=== PATIENT | male | born 1945 | race Caucasian/White ===

== ENCOUNTER 2020-11-14 07:51 | Inpatient (IN) | payer MEDICARE, OTHER, SELFPAY ==
[2020-11-14] VITALS (41 sets, daily range): BP systolic 104–170; BP diastolic 61–97; PULSE 89–147; RESP 12–25; TEMP 36.1–37.1; O2SAT 92–100; BMI 37.0
--- NOTE | ~2020-11-14 | US_ITS ---
EXAMINATION: US venous doppler LE EXAM DATE: 11/14/2020 16:22 INDICATION: Bilateral lower extremity edema. TECHNIQUE: Multiple grayscale, color flow and Doppler images of the lower extremity deep venous syste ms bilaterally were obtained and reviewed. There is no prior study for comparison. FINDINGS: Right side: The right common femoral, femoral and profunda veins demonstrate normal color flow, respi ratory variation, augmentation and compressibility. Compressibility, color flow confirmed within the right popliteal, posterior tibial, peroneal, and greater saphenous veins. Left side: The left common femoral, femoral and profunda veins demonstrate normal color flow, respira tory variation, augmentation and compressibility. Compressibility, color flow confirmed within the l eft popliteal, posterior tibial, peroneal, and greater saphenous veins. IMPRESSION: 1. No lower extremity deep venous thrombosis bilaterally. Reviewed, dictated and finalized at location B. [facility]
--- NOTE | ~2020-11-14 | XR_ITS ---
EXAMINATION: XR chest 1V portable EXAM DATE: 11/14/2020 08:57 INDICATION: Shortness of breath. TECHNIQUE: Portable AP frontal chest x-ray was obtained. There is no prior study for comparison. FINDINGS: The lungs are clear. There are no pleural effusions. Cardiac silhouette is prominent but magnified on this AP technique. There is no pneumothorax suspected. The bones and soft tissues are unremarkable. IMPRESSION: No acute cardiopulmonary findings. Reviewed, dictated and finalized at location D. ADER
--- NOTE | 2020-11-14 08:03 | ECG_ITS ---
Measurements Intervals [place] Rate: 132 P: TX: 0 QRS: -14 QRSD: 81 T: 58 QT: 290 QTc: 430 Interpretive Statements ATRIAL FIBRILLATION WITH RAPID VENTRICULAR RESPONSE EARLY PRECORDIAL R/S TRANSITION ABNORMAL ECG Electronically Signed On 11-14-2020 8:17:11 [employer] [place] by Galen Ashby D.O.
[2020-11-14 08:41] LABS: Basophils Absolute Auto 0.1 K/mm3 (0.0-0.1); Basophils Percent Auto 0.7 % (0.2-1.2); Eosinophils Percent Auto 0.4 % (0-4.4); Hematocrit 34.3 % (42.0-52.0); Hemoglobin 11.2 g/dL (14.0-18.0); Immature Granulocyte Absolute 0.06 K/mm3 (0.00-0.031); Immature Granulocyte Percent A 0.7 % (0-0.5); Lymphocytes Percent Auto 23.6 % (18.3-44.2); Mean Corpuscular HGB Conc 32.7 g/dl (32-36); Mean Corpuscular Hemoglobin 30.4 pg (26-34); Mean Platelet Volume 9.8 fl (7.4-10.4); Monocytes Absolute Auto 0.5 K/mm3 (0.1-0.6); Monocytes Percent Auto 5.7 % (2.6-8.5); Neutrophils Absolute Auto 6.1 K/mm3 (1.3-6.7); Neutrophils Percent Auto 68.9 % (45.5-73.1); Platelet Count Result 213 k/mm3 (150-375); Red Blood Count 3.69 M/mm3 (4.6-6.20); Red Cell Distribution Width 12.8 % (11.5-14.5); White Blood Count 8.9 K/mm3 (4.5-10.0)
--- NOTE | 2020-11-14 08:46 | ED.GIBLEED ---
HPI - GI Bleed General Chief complaint: GI Bleed Stated complaint: black tarry stools Time Seen by Provider: 11/14/20 07:56 Source: patient Mode of arrival: ambulatory Limitations: no limitations History of Present Illness HPI Narrative: This is a 75 year old male with history of HTN, hyperlipidemia who presents for evaluation of a GI bleeding. He states he has been having black tarry stools since last night. His last stool was 1 hour ago. He also states he noticed bright red blood in the toilet as well. He denies abdominal pain, nausea, vomiting, dizziness, chest pain or sob. He was noted to be tachycardic in triage. HE denies history of afib or an arrhythmia. He denies palpitations, orthopnea. He states he takes aspirin daily due to family history of heart disease. He has been taking naproxen daily for a few weeks as well. He has chronic bilateral leg swelling but he states it has not worsened. His doctors are located at the [place]. Related Data Home Medications Medication Instructions Recorded Confirmed aspirin 81 mg PO DAILY 11/14/20 atenolol 25 mg PO DAILY 11/14/20 cyanocobalamin (vitamin B-12) 1,000 mcg PO DAILY 11/14/20 folic acid 0.8 mg PO DAILY 11/14/20 levothyroxine [Synthroid] 150 mcg PO DAILY 11/14/20 simvastatin 40 mg PO DAILY 11/14/20 Allergies Allergy/AdvReac Type Severity Reaction Status Date / Time No Known Allergies Allergy Verified 11/14/20 18:16 Review of Systems Review of Systems: All systems reviewed & are unremarkable except as noted in HPI and below Constitutional: Constitutional: Denies chills and Denies fever(s) Cardiovascular: Cardiovascular: Denies chest pain and Denies rapid heart rate Respiratory: Respiratory: Denies cough and Denies dyspnea Gastrointestinal: Gastrointestinal: Denies abdominal pain, Denies nausea and Denies vomiting PMFSH Past Medical History Medical History (Updated 11/14/20 @ 18:21 by Chelo Lovell MD) Acute blood loss anemia GI bleeding Hypertension Hypothyroid NSAID long-term use TBI (traumatic brain injury) Residual left-sided weakness. Surgical History Surgical History (Updated 11/14/20 @ 15:52 by Rebeka Curiel NP) H/O colonoscopy with polypectomy History of appendectomy History of tonsillectomy and adenoidectomy Family History Family History (Updated 11/14/20 @ 15:54 by Rebeka Curiel NP) Father Heart disease Mother Diabetes mellitus Social History Social History (Updated 11/14/20 @ 15:58 by Rebeka Curiel NP) Social History: The patient lives home alone. He is and has no children. He desires to have his sister is a durable power netting inspector. He lives approximately 6 miles from her house. 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 the patient desires to be a full code. Smoking status: Former smoker Smoking end date: 11/08/02 Alcohol intake: current Drinks per week: 3 Substance use: never Gender identity (if verbalized by the patient): Male Sexual Orientation (if Verbalized by the Patient): Straight or Heterosexual Spiritual care concerns: No Exam Const: General: no acute distress and alert Orientation/consciousness: patient oriented x3 Resp: Effort & Inspection: normal respiratory effort and no retractions Auscultation: wheezes expiratory wheezes Cardio: Rate: tachycardic Rhythm: abnormal rhythm Heart sounds: no murmurs GI: GI Palp: Yes Soft to palpation, No Tenderness to palpation present (GI) and No Guarding due to palpation present (GI) Auscultation: normal bowel sounds Rectal Exam: Abnormal stool present maroon stool and heme positive stool Skin: General skin exam: normal color Rashes: no rashes Neuro: General: patient oriented x3, moves all extremities and CN's II-XI intact bilaterally Course Consultations Consultation #1: I Discussed case with Dr. Bardales who agrees to consult on patient. Date: 11/14/20 Time: 11:2
[2020-11-14 08:51] LABS: INR 1.1; Prothrombin Time 14.6 Seconds (11.1-14.7)
[2020-11-14 08:52] LABS: Partial Thromboplastin Time 26.5 SECONDS (22.3-36.8)
[2020-11-14 08:54] LABS: Alanine Aminotransferase 18 U/L (4-50); Albumin Level 3.5 g/dL (3.5-5.1); Alkaline Phosphatase 49 U/L (38-126); Anion Gap 7 mmol/L (8-16); Aspartate Amino Transferase 20 U/L (17-59); Bilirubin,Total 0.9 mg/dL (0.2-1.3); Blood Urea Nitrogen 35 mg/dL (9-20); Calcium 8.4 mg/dL (8.4-10.2); Carbon Dioxide 25 mmol/L (22-30); Chloride 104 mmol/L (98-107); Estimated CRCL calculation 68 ml/min; Estimated Glomerular Filt Rate > 60; Glucose 129 mg/dL (75-110); Magnesium 1.6 mg/dL (1.6-2.3); Potassium 4.9 mmol/L (3.4-5.0); Sodium 136 mmol/L (137-145)
[2020-11-14] MEDS: SODIUM CHLORIDE 0.9% IV 500 ML 999 ML IV CONT (09:07)
[2020-11-14] MEDS: PANTOPRAZOLE SODIUM IV 40 MG VIAL 80 MG IV PUSH (09:08)
[2020-11-14] MEDS: dilTIAZem HCl INJ 25 MG/5 ML VIAL 10 MG IV PUSH (11:33)
[2020-11-14] MEDS: LACTATED RINGERS 1,000 ML 150 ML IV CONT (13:42)
--- NOTE | 2020-11-14 14:20 | WPDANESEPPF ---
Anes - Initial Pre Proc Eval Procedure: Operation Date: 11/14/20 15:45 Proposed Procedures p Esophagogastroduodenoscopy - Alexei Iqbal MD Date/Time: 11/14/20 14:20 Surgeon: Madonna Duque MD Pre Op Diagnosis: black tarry stools Patient Data Age: 75 Gender: M Height: 5 ft 10 in Weight: 117 kg Last Vital Signs Temp 98.8 F 11/14/20 13:45 Pulse 92 11/14/20 13:45 Resp 22 H 11/14/20 13:45 BP 140/93 H 11/14/20 13:45 Pulse Ox 98 11/14/20 13:45 Allergies Allergy/AdvReac Type Severity Reaction Status Date / Time No Known Allergies Allergy Verified 11/14/20 13:43 Home Medications Medication Instructions Recorded Confirmed Type aspirin 81 mg PO DAILY 11/14/20 History atenolol 25 mg PO DAILY 11/14/20 History cyanocobalamin (vitamin B-12) 1,000 mcg PO DAILY 11/14/20 History folic acid 0.8 mg PO DAILY 11/14/20 History levothyroxine [Synthroid] 150 mcg PO DAILY 11/14/20 History simvastatin 40 mg PO DAILY 11/14/20 History Laboratory Tests 11/14/20 11/14/20 11/14/20 08:30 08:30 08:30 WBC 8.9 K/mm3 K/mm3 (4.5-10.0) RBC 3.69 M/mm3 L M/mm3 (4.6-6.20) Hgb 11.2 g/dL L g/dL (14.0-18.0) Hct 34.3 % L % (42.0-52.0) MCV 93.0 fl fl (80-100) MCH 30.4 pg pg (26-34) MCHC 32.7 g/dl g/dl (32-36) RDW 12.8 % % (11.5-14.5) Plt Count 213 k/mm3 k/mm3 (150-375) MPV 9.8 fl fl (7.4-10.4) Immature Gran % (Auto) 0.7 % H % (0-0.5) Neut % (Auto) 68.9 % % (45.5-73.1) Lymph % (Auto) 23.6 % % (18.3-44.2) Sevier % (Auto) 5.7 % % (2.6-8.5) Eos % (Auto) 0.4 % % (0-4.4) Baso % (Auto) 0.7 % % (0.2-1.2) Lymph # (Auto) 2.10 K/mm3 K/mm3 (0.9-3.2) [place] # (Auto) 0.5 K/mm3 K/mm3 (0.1-0.6) Eos # (Auto) 0.0 K/mm3 K/mm3 (0-0.3) Baso # (Auto) 0.1 K/mm3 K/mm3 (0.0-0.1) Abs Immat Gran (auto) 0.06 K/mm3 H K/mm3 (0.00-0.031) Absolute Neuts (auto) 6.1 K/mm3 K/mm3 (1.3-6.7) Absolute Nucleated RBC 0.0 K/mm3 K/mm3 (0.0-0.012) Nucleated RBC % 0.0 % % (0.0-0.2) PT 14.6 Seconds Seconds (11.1-14.7) INR 1.1 APTT 26.5 SECONDS SECONDS (22.3-36.8) Sodium 136 mmol/L L mmol/L (137-145) Potassium 4.9 mmol/L mmol/L (3.4-5.0) Chloride 104 mmol/L mmol/L (98-107) Carbon Dioxide 25 mmol/L mmol/L (22-30) Anion Gap 7 mmol/L L mmol/L (8-16) BUN 35 mg/dL H mg/dL (9-20) Creatinine 1.10 mg/dL mg/dL (0.7-1.3) Estim Creat Clear Calc 68 ml/min ml/min Estimated GFR > 60 (59 - ) Glucose 129 mg/dL H mg/dL (75-110) Calcium 8.4 mg/dL mg/dL (8.4-10.2) Magnesium 1.6 mg/dL mg/dL (1.6-2.3) Total Bilirubin 0.9 mg/dL mg/dL (0.2-1.3) AST 20 U/L U/L (17-59) ALT 18 U/L U/L (4-50) Alkaline Phosphatase 49 U/L U/L (38-126) Total Protein 6.0 g/dL L g/dL (6.3-8.2) Albumin 3.5 g/dL g/dL (3.5-5.1) Blood Type Antibody Screen 11/14/20 08:30 WBC RBC Hgb Hct MCV MCH MCHC RDW Plt Count MPV Immature Gran % (Auto) Neut % (Auto) Lymph % (Auto) Sevier % (Auto) Eos % (Auto) Baso % (Auto) Lymph # (Auto) Sevier # (Auto) Eos # (Auto) Baso # (Auto) Abs Immat Gran (auto) Absolute Neuts (auto) Absolute Nucleated RBC Nucleated RBC % PT INR APTT Sodium Potassium Chloride Carbon Dioxide Anion Gap BUN Creatinine Estim Creat Clear Calc Estimated GFR Glucose Calcium Magnesium Total
--- NOTE | 2020-11-14 15:08 | WPDGICN ---
Assessment and Plan Assessment and plan (1) GI bleeding: Code(s): K92.2 - Gastrointestinal hemorrhage, unspecified Status: Acute Assessment and Plan: started on iv protonix, will proceed with urgent EGD more recommendations after scope (2) Acute blood loss anemia: Code(s): D62 - Acute posthemorrhagic anemia Status: Acute Assessment and Plan: npo now, trend hb and transfuse if below 7 avoid blood thinners and discontinue nsaid's (3) NSAID long-term use: Code(s): Z79.1 - parts counterman (current) use of non-steroidal anti-inflammatories (NSAID) Status: Acute (4) Atrial fibrillation with RVR: Code(s): I48.91 - Unspecified atrial fibrillation Status: Acute Assessment and Plan: new diagnosis, on cardizem drip he is been admitted to hospital, management by hospitalist team (5) Hypertension: Code(s): I10 - Essential (primary) hypertension Status: Chronic GI Consult Note Consult date/time: 11/14/20 15:08 Reason for consult: melena, GIB HPI: Cj Galaviz is a 75 year old male with history of HTN, hyperlipidemia and also using naproxen daily for few weeks (pain in nose after using glasses) here with new onset of melena that started last night, early today again had large dark stool with red blood. He denies abdominal pain, nausea, vomiting, dizziness, chest pain or sob. He uses aspirin. No history of bleeding, no alcohol abuse, no cirrhosis. His doctors located at [place]. Denies history of arrhythmia. In the ER noted to be on Afib with RVR, started on cardizem drip. Hb 11.2, bun 35, platelets/inr and liver enzymes normal. Last colonoscopy about 2 years ago with polyps Review of Systems Constitutional: Constitutional: Denies lethargy Eyes: Eyes: Reports no additional eye complaints ENT: Reports system reviewed and no additional complaints, except as documented Cardiovascular: Cardiovascular: Reports palpitations Respiratory: Respiratory: Denies cough Gastrointestinal: Gastrointestinal: Denies abdominal pain and Reports melena Genitourinary: Genitourinary: Denies dysuria Musculoskeletal: Musculoskeletal: Denies neck pain Integumentary/Breasts: Skin/Breast: Denies dry skin Neurologic: Denies headache(s) Psychiatric: Psychiatric: Reports no additional psychiatric complaints PMFSH Past Medical History Medical History (Updated 11/14/20 @ 16:01 by Alexei Iqbal MD) Acute blood loss anemia GI bleeding Hypertension Hypothyroid NSAID long-term use TBI (traumatic brain injury) Residual left-sided weakness. Surgical History Surgical History (Updated 11/14/20 @ 15:52 by Rebeka Curiel NP) H/O colonoscopy with polypectomy History of appendectomy History of tonsillectomy and adenoidectomy Family History Family History (Updated 11/14/20 @ 15:54 by Rebeka Curiel NP) Father Heart disease Mother Diabetes mellitus Social History Social History (Updated 11/14/20 @ 08:49 by Chelo Lovell MD) Social History: The patient lives home alone. He is and has no children. He desires to have his sister is a durable power defense attorney. He lives approximately 6 miles from her house. 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 the patient desires to be a full code. Smoking status: Former smoker Meds Home Medications and Allergies Home Medications Medication Instructions Recorded Confirmed Type aspirin 81 mg PO DAILY 11/14/20 History atenolol 25 mg PO DAILY 11/14/20 History cyanocobalamin (vitamin B-12) 1,000 mcg PO DAILY 11/14/20 History folic acid 0.8 mg PO DAILY 11/14/20 History levothyroxine [Synthroid] 150 mcg PO DAILY 11/14/20 History simvastatin 40 mg PO DAILY 11/14/20 History Allergies Allergy/AdvReac Type Severity Reaction Status Date / Time No Known Allergies Allergy Verified 11/14/20 13:43 Vital Signs Vital Signs - 24 hr 11/14/20 08:00 03
--- NOTE | 2020-11-14 15:45 | PM.IMHP ---
H&P: HPI History of Present Illness Date/Time: 11/14/20 15:45 who is a 75-year-old male patient who takes a daily aspirin. He has no prior history of having atrial fibrillation. In AFib with RVR in the emergency room. Cardiology had been consulted. The patient was started on a Cardizem drip. The patient came here today because he noticed that he had dark tarry stools last night and again early this morning he had a large dark stool with some red blood in it. The patient has been taking naproxen daily for few weeks as well. He has chronic bilateral lower leg swelling but states that it is of about the same. [facility]. H&H 11.2 and 34.3. Sodium 136. IV fluids, and Cardizem drip. He is being admitted to IMU inpatient status on the date of service of 11/14/2020. Chief Complaint: GI bleed Review of Systems Review of Systems: All systems reviewed & are unremarkable except as noted in HPI and below Constitutional: Constitutional: Reports as per HPI and Reports no additional constitutional complaints Eyes: Eyes: Reports as per HPI and Reports no additional eye complaints ENT: Reports system reviewed and no additional complaints, except as documented and Reports Normal hearing present Cardiovascular: Cardiovascular: Reports no additional cardiovascular complaints Respiratory: Respiratory: Reports no additional respiratory complaints and Reports no additional respiratory complaints Gastrointestinal: Gastrointestinal: Reports as per HPI and Reports no additional gastrointestinal complaints Musculoskeletal: Musculoskeletal: Reports no additional musculoskeletal complaints Integumentary/Breasts: Skin/Breast: Reports system reviewed and no additional complaints, except as docu and Reports as per HPI Neurologic: Reports system reviewed and no additional complaints, except as documented, Reports as per HPI and Reports Normal hearing present Psychiatric: Psychiatric: Reports no additional psychiatric complaints and Reports as per HPI Endocrine: Endocrine: Reports no additional endocrine complaints Hematologic/Lymphatic: Hematologic/Lymphatic: Reports no additional hematologic/lymphatic complaints Allergic/Immunologic: Allergic/Immunologic: Reports no additional allergic/immunologic complaints [facility] Past Medical History Medical History (Updated 11/14/20 @ 16:01 by Alexei Iqbal MD) Acute blood loss anemia GI bleeding Hypertension Hypothyroid NSAID long-term use TBI (traumatic brain injury) Residual left-sided weakness. Surgical History Surgical History (Updated 11/14/20 @ 15:52 by Rebeka Curiel NP) H/O colonoscopy with polypectomy History of appendectomy History of tonsillectomy and adenoidectomy Family History Family History (Updated 11/14/20 @ 15:54 by Rebeka Curiel NP) Father Heart disease Mother Diabetes mellitus Social History Social History (Updated 11/14/20 @ 15:58 by Rebeka Curiel NP) Social History: The patient lives home alone. He is and has no children. He desires to have his sister is a durable power personal injury attorney. He lives approximately 6 miles from her house. 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 the patient desires to be a full code. Smoking status: Former smoker Meds Home Medications and Allergies Home Medications Medication Instructions Recorded Confirmed Type aspirin 81 mg PO DAILY 11/14/20 History atenolol 25 mg PO DAILY 11/14/20 History cyanocobalamin (vitamin B-12) 1,000 mcg PO DAILY 11/14/20 History folic acid 0.8 mg PO DAILY 11/14/20 History levothyroxine [Synthroid] 150 mcg PO DAILY 11/14/20 History simvastatin 40 mg PO DAILY 11/14/20 History Allergies Allergy/AdvReac Type Severity Reaction Status Date / Time No Known Allergies Allergy Verified 11/14/20 13:43 Vital Signs Vital Signs - 24 hr 11/14/20 08:00 11/14/20 08:09 11/14/20 08:15
--- NOTE | 2020-11-14 18:04 | ADMGEN ---
This patient, Cj Galaviz, was admitted to IMU Room 205-01. Patient/family oriented to hospital policies and general routines including ID bracelet, bed and alarms, visiting hours, pain management, procedures, bathroom and other care routines, personal items, smoking policy, room service/diet, and visiting hours. Information on how to activate the Rapid Response Team has been discussed. Patient/Family are encouraged to report perceived risks to care and to ask questions if they do not understand what they are told or what they should do.
[2020-11-14 18:26] LABS: Hematocrit 32.9 % (42.0-52.0); Hemoglobin 10.8 g/dL (14.0-18.0)
[2020-11-14] MEDS: LACTATED RINGERS 1,000 ML 125 ML IV CONT (18:54)
[2020-11-15] VITALS (18 sets, daily range): BP systolic 111–134; BP diastolic 68–85; PULSE 63–95; RESP 15–21; TEMP 35.8–36.6; O2SAT 92–100
--- NOTE | 2020-11-15 02:49 | PC.NURSE ---
This patient, Cj Galaviz, was transferred to [ICU room 6 as an IMU overflow pt ] on 11/15/20 at 0250. Personal belongings sent with patient. Report given to [ ERAN Colindres]. Appropriate documentation sent with patient.
[2020-11-15] MEDS: LACTATED RINGERS 1,000 ML 125 ML IV CONT (03:13)
--- NOTE | 2020-11-15 03:33 | PC.NURSE ---
This patient, Cj Galaviz, was transferred to [ ICU 6] on 11/15/20 at 0250. Personal belongings sent with patient. Report received from Ambika Reina RN. Appropriate documentation sent with patient.
[2020-11-15 03:35] LABS: Basophils Absolute Auto 0.1 K/mm3 (0.0-0.1); Basophils Percent Auto 0.6 % (0.2-1.2); Eosinophils Absolute Auto 0.1 K/mm3 (0-0.3); Hematocrit 29.5 % (42.0-52.0); Hemoglobin 9.6 g/dL (14.0-18.0); Immature Granulocyte Absolute 0.04 K/mm3 (0.00-0.031); Immature Granulocyte Percent A 0.5 % (0-0.5); Lymphocytes Absolute Auto 3.22 K/mm3 (0.9-3.2); Lymphocytes Percent Auto 39.4 % (18.3-44.2); Mean Corpuscular HGB Conc 32.5 g/dl (32-36); Mean Corpuscular Hemoglobin 29.7 pg (26-34); Mean Corpuscular Volume 91.3 fl (80-100); Mean Platelet Volume 9.7 fl (7.4-10.4); Monocytes Absolute Auto 0.5 K/mm3 (0.1-0.6); Monocytes Percent Auto 5.6 % (2.6-8.5); Neutrophils Absolute Auto 4.3 K/mm3 (1.3-6.7); Neutrophils Percent Auto 52.9 % (45.5-73.1); Platelet Count Result 194 k/mm3 (150-375); Red Blood Count 3.23 M/mm3 (4.6-6.20); White Blood Count 8.2 K/mm3 (4.5-10.0)
[2020-11-15 03:53] LABS: Alanine Aminotransferase 15 U/L (4-50); Albumin Level 3.3 g/dL (3.5-5.1); Alkaline Phosphatase 36 U/L (38-126); Anion Gap 2 mmol/L (8-16); Aspartate Amino Transferase 21 U/L (17-59); Blood Urea Nitrogen 26 mg/dL (9-20); Calcium 8.3 mg/dL (8.4-10.2); Carbon Dioxide 27 mmol/L (22-30); Chloride 104 mmol/L (98-107); Estimated CRCL calculation 75 ml/min; Estimated Glomerular Filt Rate > 60; Glucose 104 mg/dL (75-110); Sodium 133 mmol/L (137-145)
--- NOTE | 2020-11-15 06:00 | ECHO_ITS ---
Patient Info Name: Cj Galaviz Age: 75 years : 1945 Gender: Male Ht: 70 in Wt: 257 lbs BSA: 2.44 m2 HR: 76 bpm BP: 134 / 70 mmHg Heart Rhythm: Atrial Fibrillation Technical Quality: Fair Exam Date: 11/15/2020 9:33 AM Exam Location: [facility] Pulmonary Exam Room: ICU 06 Patient Status: Inpatient Admit Date: 11/14/2020 Staff Ordering Physician: Chelo Lovell MD Narrative Writer: Amanda Canales RDCS Attending Provider: Douglas Swartz MD Referring Physician: Liliya COREY; Exam Type: CA echo doppler color flow Study Info Indications - [employer] Complete two-dimensional, color flow and Doppler transthoracic echocardiogram is performed. Summary 1. Complete two-dimensional, color flow and Doppler transthoracic echocardiogram is performed. 2. Left ventricular systolic function is normal, estimated at 65-70%. 3. There is mildly increased left ventricular wall thickness. 4. Left atrial chamber dimension is moderately enlarged. 5. Right atrial chamber dimension is moderately enlarged. 6. There is moderate to severe mitral valve regurgitation. 7. There is mild to moderate tricuspid valve regurgitation. 8. No pulmonary hypertension, estimated pulmonary arterial systolic pressure is 34 mmHg. 9. There is trivial pericardial effusion. Left Ventricle Left ventricular chamber dimension is normal. Left ventricular systolic function is normal, estimated at 65-70%. There is mildly increased left ventricular wall thickness. The left ventricular diastolic function is indeterminate. Right Ventricle Right ventricular chamber dimension is normal. Right ventricular systolic function is normal. Left Atria Left atrial chamber dimension is moderately enlarged. Right Atria Right atrial chamber dimension is moderately enlarged. Aortic Valve The aortic valve is not well visualized. There is no aortic valve stenosis. There is no aortic valve regurgitation. There is mild aortic valve calcification. Pulmonic Valve The pulmonic valve is not well visualized. Mitral Valve The mitral valve has normal leaflets. There is moderate to severe mitral valve regurgitation. The mitral valve annulus is mildly calcified. Tricuspid Valve The tricuspid valve leaflets are normal. There is mild to moderate tricuspid valve regurgitation. No pulmonary hypertension, estimated pulmonary arterial systolic pressure is 34 mmHg. Pericardium/Pleural The pericardium appears normal. There is trivial pericardial effusion. Inferior Vena Cava Normal inferior vena cava with >50% collapse upon inspiration consistent with normal right atrial pressure, 5 mmHg. Aorta The aortic root size at the sinus of Valsalva is normal. There is mild aortic atherosclerosis. Left Ventricular Outflow Tract Name Value Normal LVOT 2D LVOT Diameter 2.1 cm LVOT Doppler LVOT Peak Gradient 4 mmHg LVOT Mean Gradient 3 mmHg LVOT VTI 21 cm LVOT VTI/AV VTI Ratio 0.8 LVOT Stroke Volume
[2020-11-15 07:19] LABS: Hemoglobin 9.3 g/dL (14.0-18.0)
--- NOTE | 2020-11-15 09:55 | PM.CNCAR ---
Assessment and Plan Assessment and plan (1) Atrial fibrillation with RVR: Code(s): I48.91 - Unspecified atrial fibrillation Status: Acute Assessment and Plan: Rate controlled on diltiazem. Transition to oral rate control. Cardioversion and antiarrhythmic therapy should be avoided as duration of atrial fibrillation of unknown, patient asymptomatic. Unable to utilize antiplatelet and or systemic anticoagulation due to acute GI bleed. Embolic stroke risk discussed with patient versus bleeding risk on anticoagulation. Plan to initiate anticoagulation as an outpatient when able from GI perspective. -2D echocardiogram. Further comment after further review -AFib is secondary to risk factors including hypertension, age as well as exacerbated by acute physiologic stressor with GI bleed and blood loss anemia. Infusion to 5 milligrams/hour, give oral metoprolol b.i.d. 1st dose 50 mg now. Discontinue diltiazem drip 30 minutes after oral metoprolol administered. (2) Acute blood loss anemia: Code(s): D62 - Acute posthemorrhagic anemia Status: Acute Assessment and Plan: Secondary to bleeding ulcer. He had ablation performed. Follow H&H. Appreciate GI involvement. (3) GI bleeding: Code(s): K92.2 - Gastrointestinal hemorrhage, unspecified Status: Acute Assessment and Plan: As above. GI following. (4) Hypertension: Code(s): I10 - Essential (primary) hypertension Status: Chronic Assessment and Plan: Stable, no acute issues. (5) Hypothyroid: Code(s): E03.9 - Hypothyroidism, unspecified Status: Chronic Assessment and Plan: Per primary service. Levothyroxine. Check TSH. History of Present Illness History of Present Illness Consult date/time: Date of service: 11/15/20 09:55 Cardiology consultation at the request of Rebeka Curiel of [facility] service for our opinion regarding atrial fibrillation management in setting of acute GI bleed. Requesting physician: Rebeka Curiel NP Consult reason: atrial fibrillation Reason For Visit: black tarry stools Narrative: Patient is a pleasant 75-year-old male with a history of hypertension, hypothyroidism, history of traumatic brain injury who presented with complaints of black dark tarry stools on daily NSAID therapy for the past month in addition to aspirin 81 mg daily. In the emergency department he was noted to be in atrial fibrillation with rapid ventricular response for which a Cardizem infusion was initiated. Heart rate better controlled. Patient was evaluated by Gastroenterology for which endoscopy was performed revealing multiple benign ulcers in the antrum largest of which had an adherent clot ablated with a heater probe and clipped due to active bleeding. Multiple biopsies were taken. Small hiatal hernia was also noted. At presentation Hemoglobin 11.2 declined to 9.3 this morning. Patient denies any prior history of atrial fibrillation, palpitations, chest pain or dizziness. He denies recent falls. He may have noted a little shortness of breath just prior to admission with walking longer distances. No history of stroke, DVT/PE, CAD, CHF. He admits he snores but has no documented history of sleep apnea. Review of Systems Review of Systems: All systems reviewed & are unremarkable except as noted in HPI and below Constitutional: Constitutional: Reports as per HPI, Reports no additional constitutional complaints, Reports fatigue and Denies weakness Eyes: Eyes: Reports as per HPI and Reports no additional eye complaints ENT: Reports system reviewed and no additional complaints, except as documented and Reports as per HPI Cardiovascular: Cardiovascular: Reports as per HPI, Reports no additional cardiovascular complaints, Denies chest pain, Denies diaphoresis, Reports leg edema, Denies lightheadedness and Denies palpitations Respiratory: Respiratory: Reports as per HPI, Reports no addition
[2020-11-15] MEDS: METOPROLOL TARTRATE 50 MG TAB PO ×2 (10:28→20:16)
--- NOTE | 2020-11-15 11:35 | WPDANESPN ---
Anes - Prog Note Post-Op Date/Time: 11/15/20 11:35 Cardiovascular status: normal Respiratory status: normal Airway patency: baseline Mental status: baseline Post-Op hydration status: normal Vital Signs: Last Vital Signs Temp 35.8 C L 11/15/20 08:00 Pulse 68 11/15/20 10:27 Resp 21 H 11/15/20 08:00 BP 129/79 11/15/20 08:00 Pulse Ox 97 11/15/20 08:00 Pain Score (VAS): no complaints I/O: Intake & Output 11/14/20 11/15/20 11/15/20 23:59 07:59 15:59 Intake Total 500 1650 656 Output Total 460 300 Balance 40 1350 656 Laboratory Tests 11/15/20 07:04 11/15/20 02:55 11/14/20 11/15/20 11/15/20 18:16 02:55 02:55 WBC 8.2 RBC 3.23 L Hgb 10.8 L 9.6 L Hct 32.9 L 29.5 L MCV 91.3 MCH 29.7 MCHC 32.5 RDW 13.0 Plt Count 194 MPV 9.7 Immature Gran % (Auto) 0.5 Neut % (Auto) 52.9 Lymph % (Auto) 39.4 Pitt % (Auto) 5.6 Eos % (Auto) 1.0 Baso % (Auto) 0.6 Lymph # (Auto) 3.22 H Pitt # (Auto) 0.5 Eos # (Auto) 0.1 Baso # (Auto) 0.1 Abs Immat Gran (auto) 0.04 H Absolute Neuts (auto) 4.3 Absolute Nucleated RBC 0.0 Nucleated RBC % 0.0 Sodium 133 L Potassium 4.0 Chloride 104 Carbon Dioxide 27 Anion Gap 2 L BUN 26 H Creatinine 1.00 Estim Creat Clear Calc 75 Estimated GFR > 60 Glucose 104 Calcium 8.3 L Total Bilirubin 1.0 AST 21 ALT 15 Alkaline Phosphatase 36 L Total Protein 6.0 L Albumin 3.3 L TSH (Reflex) Free T4 11/15/20 11/15/20 11/15/20 07:02 07:02 07:04 WBC RBC Hgb 9.3 L Hct 29.0 L MCV MCH MCHC RDW Plt Count MPV Immature Gran % (Auto) Neut % (Auto) Lymph % (Auto) Pitt % (Auto) Eos % (Auto) Baso % (Auto) Lymph # (Auto) Pitt # (Auto) Eos # (Auto) Baso # (Auto) Abs Immat Gran (auto) Absolute Neuts (auto) Absolute Nucleated RBC Nucleated RBC % Sodium Potassium Chloride Carbon Dioxide Anion Gap BUN Creatinine Estim Creat Clear Calc Estimated GFR Glucose Calcium Total Bilirubin AST ALT Alkaline Phosphatase Total Protein Albumin TSH (Reflex) 5.980 H Free T4 Pending Post-procedural complaints: none Patient Feedback: Patient satisfied with anesthetic care.
--- NOTE | 2020-11-15 11:50 | WPDGIPROGNO ---
Progress Note: A&P Assessment and Plan (1) Gastric ulcer: Code(s): K25.9 - Gastric ulcer, unspecified as acute or chronic, without hemorrhage or perforation Status: Acute Assessment and Plan: found several gastric ulcers with a large one with clot, treated with gold probe and one clip, no bleeding ok to switch to protonix 40mg bid after completing drip today ok to advance diet continue to monitor for obvious sign of bleeding probably from nsaid's use (pending bx)- he should not take anymore no anticoagulation for now, maybe in 1 week if medically indicated given arrhythmia repeat egd in 3 months to assess for healing (2) GI bleeding: Code(s): K92.2 - Gastrointestinal hemorrhage, unspecified Status: Acute Assessment and Plan: seems that resolved but trend hb (3) Acute blood loss anemia: Code(s): D62 - Acute posthemorrhagic anemia Status: Acute Assessment and Plan: continue to monitor (4) Atrial fibrillation with RVR: Code(s): I48.91 - Unspecified atrial fibrillation Status: Acute Assessment and Plan: rate controlled now, cardiology on board (5) NSAID long-term use: Code(s): Z79.1 - senior living (current) use of non-steroidal anti-inflammatories (NSAID) Status: Acute Assessment and Plan: he understood that can not take anymore (6) Hypertension: Code(s): I10 - Essential (primary) hypertension Status: Chronic Subjective Date/time seen: 11/15/20 11:50 Interval history: had dark stool earlier but overall better, still on cardizem gtt and also protonix iv drip, he is comfortable, in ICU Review of Systems Review of Systems: All systems reviewed & are unremarkable except as noted in HPI and below Exam Const: General: comfortable and no acute distress HENMT: General nose exam: Normal nares present Eyes: General: appearance normal, both eyes and all related structures Neck: Neck: supple Resp: Effort & Inspection: normal respiratory effort Auscultation: clear to auscultation bilaterally Cardio: Rhythm: abnormal rhythm irregularly irregular GI: Inspection: non-distended GI Palp: Yes Soft to palpation and No Tenderness to palpation present (GI) Auscultation: normal bowel sounds Skin: General skin exam: normal color Neuro: Speech: normal speech Motor exam (neuro): Normal motor muscle tone present throughout Extrem: General: normal to inspection Objective Data Vital Signs Vital Signs: Vital Signs - 24 hr 11/14/20 11:54 11/14/20 13:33 11/14/20 13:41 Temperature 97.9 F 97.9 F 98 F Pulse Rate 89 98 112 H Respiratory Rate 13 18 12 Blood Pressure 126/89 121/77 162/97 H Pulse Oximetry 98 96 100 11/14/20 13:45 11/14/20 15:32 11/14/20 15:42 Temperature 98.8 F Pulse Rate 92 99 110 H Respiratory Rate 22 H 20 18 Blood Pressure 140/93 H 104/61 110/71 Pulse Oximetry 98 92 96 11/14/20 15:52 11/14/20 16:29 11/14/20 18:00 Temperature Pulse Rate 91 115 H 104 H Respiratory Rate 20 Blood Pressure 128/67 Pulse Oximetry 95 11/14/20 19:33 11/14/20 20:00 11/14/20 22:00 Temperature 96.9 F L Pulse Rate 90 90 105 H Respiratory Rate 18 Blood Pressure 123/66 123/66 Pulse Oximetry 97 11/14/20 23:32 11/14/20 23:52 11/15/20 00:00 Temperature 97.5 F L Pulse Rate 102 H 94 95 Respiratory Rate 22 H Blood Pressure 109/67 Pulse Oximetry 97 11/15/20 02:00 11/15/20 03:00 11/15/20 03:05 Temperature Pulse Rate 82 73 Respiratory Rate 16 Blood Pressure 115/74 Pulse Oximetry 92 92 11/15/20 04:00 11/15/20 05:00 11/15/20 06:00 Temperature 97.8 F Pulse Rate 81 85 76 Respiratory Rate Blood Pressure 134/70 Pulse Oximetry 98 11/15/20 08:00 11/15/20 09:59 11/15/20 10:00 Temperature 96.5 F L Pulse Rate 81 68 73 Respiratory Rate 21 H Blood Pressure 129/79 Pulse Oximetry 97 11/15/20 10:27 Temperature Pulse Rate 68 Respiratory Rate Blo
--- NOTE | 2020-11-15 13:07 | PC.NURSE ---
Pt's ventricular rate decreased to 30's an hour and half after metoprolol given, Dr. Robles notified, cardizem gtt immediately stopped at time of anatoliy, vs remain stable.
[2020-11-15 14:51] LABS: Total Triiodothyronine (T3) 0.64 NG/ML (0.97-1.69)
--- NOTE | 2020-11-15 16:03 | PM.IMPN ---
Progress Note: A&P Assessment and Plan (1) Atrial fibrillation with RVR: Code(s): I48.91 - Unspecified atrial fibrillation Status: Acute Assessment and Plan: Patient was placed on a Cardizem drip. ECHO with LVEF 65-70%, mildly increased left ventricular wall thickness, left atrial chamber moderately enlarged, right atrial chamber moderately enlared; moderte to severe mitral valve regurgitation, mild to moderate TR; no pulmonary hypertension. afib with rvr is new. cardiology on board. anticoagulation contraindicated due to ongoign gi bleed. (2) GI bleeding: Code(s): K92.2 - Gastrointestinal hemorrhage, unspecified Status: Acute Assessment and Plan: Dr. Jeffy peoples. s/p EGD wtih hiatal hernia and unspecified gastric ulcer on his EGD. hold apsirin. no NSAIDs as he has been taking for so long. (3) Hypothyroid: Code(s): E03.9 - Hypothyroidism, unspecified Status: Chronic Assessment and Plan: Continue with Synthroid. (4) Hypertension: Code(s): I10 - Essential (primary) hypertension Status: Chronic Assessment and Plan: Continue with home medications. 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 Subjective Date/time seen: 11/15/20 16:03 Interval history: he feels well. he repots he is still having bleeding per rectum. he denies any chest pain or sob, lightheadedness. Review of Systems Constitutional: Constitutional: Denies body ache(s), Denies chills, Reports fatigue and Reports lethargy Eyes: Eyes: Denies blurry vision and Denies photophobia ENT: Denies Normal hearing present and Denies tinnitus Cardiovascular: Cardiovascular: Denies chest pain and Denies palpitations Respiratory: Respiratory: Denies cough, Denies dyspnea and Reports dyspnea on exertion Gastrointestinal: Gastrointestinal: Denies abdominal pain, Denies nausea and Denies vomiting Genitourinary: Genitourinary: Denies dysuria and Denies urinary frequency Musculoskeletal: Musculoskeletal: Denies back pain and Denies arthralgias Integumentary/Breasts: Skin/Breast: Denies pruritus and Denies unusual bruising Neurologic: Denies headache(s) and Denies numbness Exam Const: General: cooperative, healthy appearing, comfortable, no acute distress, well developed, alert, awake and Physically active Nutritional Appearance: average body habitus and overweight Orientation/consciousness: oriented to person, oriented to place, oriented to time and patient oriented x3 Limitations: no limitations HENMT: Head: normal to inspection, No palpable skull fracture present, normocephalic and atraumatic Ears: external ears normal and hearing grossly impaired General nose exam: Normal external nose present, Normal nares present and No nasal polyps present Eyes: General: appearance normal, both eyes and all related structures Alignment and Position: alignment normal Periorbital: periorbital findings normal Eyelids: eyelids normal Conjunctivae: conjunctivae normal Sclera: sclerae normal Cornea: corneas normal Pupils: Equal, round and reactive pupils present EOM: EOMs intact bilaterally Neck: Neck: normal visual inspection, full ROM, no lymphadenopathy, trachea midline and supple Thyroid: thyroid normal Carotids: normal carotid upstroke Lymphatic: no lymphadenopathy noted Chest: Chest palpation & inspection: normal inspection of the chest Resp: Effort & Inspection: normal respiratory effort Auscultation: clear to auscultation bilaterally Percussion: percussion normal Cardio: Palpation: normal PMI Rhythm: abnormal rhythm irregularly irregular Heart sounds: S1 normal heart sound present and S2 normal heart sound present Peripheral pulses: Peripheral pulses 2+ throughout GI: Inspection: normal to inspection GI Palp: Yes Soft to palpation Auscultation
[2020-11-15] MEDS: PANTOPRAZOLE SODIUM IV 40 MG VIAL IV PUSH (20:17)
[2020-11-16] VITALS (14 sets, daily range): BP systolic 116–149; BP diastolic 69–95; PULSE 75–111; RESP 14–20; TEMP 36.3–36.8; O2SAT 97–99
--- NOTE | 2020-11-16 03:15 | PC.NURSE ---
Daylight Savings Time For Daylight Savings Time Ending in the Fall - Clocks are moved back. For Daylight Savings Time Beginning in the Spring - Clocks are moved ahead. For [facility], the time of change occurs at 0200 hrs. Time is taken from the college service officer. This entry on the patient's chart recognizes the change in time reflected during documentation. Example: 2 entries for vital signs may be charted for 0200 hrs.
[2020-11-16 04:36] LABS: Hematocrit 28.4 % (42.0-52.0); Hemoglobin 9.2 g/dL (14.0-18.0); Mean Corpuscular HGB Conc 32.4 g/dl (32-36); Mean Corpuscular Hemoglobin 30.5 pg (26-34); Platelet Count Result 154 k/mm3 (150-375); Red Blood Count 3.02 M/mm3 (4.6-6.20); Red Cell Distribution Width 13.2 % (11.5-14.5); White Blood Count 6.7 K/mm3 (4.5-10.0)
[2020-11-16 05:01] LABS: Anion Gap 2 mmol/L (8-16); Blood Urea Nitrogen 17 mg/dL (9-20); Calcium 8.3 mg/dL (8.4-10.2); Carbon Dioxide 30 mmol/L (22-30); Chloride 103 mmol/L (98-107); Estimated CRCL calculation 69 ml/min; Estimated Glomerular Filt Rate > 60; Glucose 94 mg/dL (75-110); Potassium 4.2 mmol/L (3.4-5.0); Sodium 135 mmol/L (137-145)
[2020-11-16] MEDS: LEVOTHYROXINE SODIUM 150 MCG TABLET PO (06:32)
[2020-11-16] MEDS: SIMVASTATIN 20 MG TABLET 40 MG PO (08:31)
[2020-11-16] MEDS: PANTOPRAZOLE SODIUM IV 40 MG VIAL IV PUSH ×2 (08:32→22:21)
[2020-11-16] MEDS: METOPROLOL TARTRATE 50 MG TAB PO ×2 (08:32→22:21)
[2020-11-16] MEDS: FOLIC ACID 0.4 MG TABLET 0.8 MG PO (08:32)
[2020-11-16] MEDS: CYANOCOBALAMIN 1,000 MCG TABLET 1000 MCG PO (08:32)
--- NOTE | 2020-11-16 10:01 | PM.PNCARD ---
Progress Note: A&P Assessment and Plan (1) Atrial fibrillation with RVR: Code(s): I48.91 - Unspecified atrial fibrillation Status: Acute Assessment and Plan: Persistent atrial fibrillation with controlled ventricular response on metoprolol 50 mg p.o. q.12 hours. Unable to utilize antiplatelet and or systemic anticoagulation due to acute GI -AFib is secondary to risk factors including hypertension, age as well as exacerbated by acute physiologic stressor with GI bleed and blood loss anemia. -echo personally reviewed EF 65-70%, moderate left atrial enlargement, moderate to severe mitral regurgitation. Reduce likelihood of successful durable cardioversion due to mitral regurgitation. -follow-up as an outpatient with me in the next 2-4 weeks. Will follow as needed. Please do not hesitate to contact us with any additional questions or concerns. Okay to transfer to floor. If heart rate stable overnight discontinue telemetry tomorrow. (2) Acute blood loss anemia: Code(s): D62 - Acute posthemorrhagic anemia Status: Acute Assessment and Plan: H&H stable. Secondary to bleeding ulcer. Follow H&H. Appreciate GI involvement. (3) GI bleeding: Code(s): K92.2 - Gastrointestinal hemorrhage, unspecified Status: Acute Assessment and Plan: As above. GI following. (4) Hypertension: Code(s): I10 - Essential (primary) hypertension Status: Chronic Assessment and Plan: Stable, no acute issues. Negative lower extremity venous Dopplers. (5) Hypothyroid: Code(s): E03.9 - Hypothyroidism, unspecified Status: Chronic Assessment and Plan: Per primary service. Levothyroxine. 5.980, mildly elevated, subclinical not likely significant contribution to atrial fibrillation. Subjective Date/time seen: Date of service: 11/16/20 10:01 Follow-up for atrial fibrillation with rapid ventricular response, GI bleed, blood loss anemia Feeling quite well. Notes reduction in dark stool with BM. No bright red blood per rectum. No chest pain, palpitations or shortness of breath. Heart rate very well controlled, diltiazem discontinued yesterday morning tolerating metoprolol. Review of Systems Review of Systems: All systems reviewed & are unremarkable except as noted in HPI and below Constitutional: Constitutional: Reports as per HPI, Reports no additional constitutional complaints, Reports fatigue, Reports headache(s) and Denies weakness Eyes: Eyes: Reports as per HPI and Reports no additional eye complaints ENT: Reports system reviewed and no additional complaints, except as documented, Reports as per HPI and Reports headache(s) Cardiovascular: Cardiovascular: Reports as per HPI, Reports no additional cardiovascular complaints, Denies chest pain, Denies diaphoresis, Reports leg edema, Denies lightheadedness, Denies palpitations, Denies dyspnea and Reports dyspnea on exertion Respiratory: Respiratory: Reports as per HPI, Reports no additional respiratory complaints, Denies hemoptysis, Denies dyspnea and Reports dyspnea on exertion Gastrointestinal: Gastrointestinal: Reports as per HPI, Reports no additional gastrointestinal complaints, Denies abdominal pain, Reports melena and Denies hematochezia Genitourinary: Genitourinary: Reports no additional male genitourinary complaints, Reports as per HPI and Denies hematuria Musculoskeletal: Musculoskeletal: Reports no additional musculoskeletal complaints and Reports as per HPI Integumentary/Breasts: Skin/Breast: Reports system reviewed and no additional complaints, except as docu and Reports as per HPI Neurologic: Reports system reviewed and no additional complaints, except as documented, Reports as per HPI, Reports headache(s) and Denies weakness Psychiatric: Psychiatric: Reports no additional psychiatric complaints and Reports as per HPI Endocrine: Endocrine: Reports no additional endocrine complaints, Reports as per HPI, Repor
--- NOTE | 2020-11-16 12:16 | WPDGIPROGNO ---
Progress Note: A&P Assessment and Plan (1) Gastric ulcer: Code(s): K25.9 - Gastric ulcer, unspecified as acute or chronic, without hemorrhage or perforation Status: Acute Assessment and Plan: several gastric ulcers with a large one with clot, treated with gold probe and one clip, no bleeding (pending biopsy) tolerating diet continue with protonix 40 mg bid or equivalent (I would favor fci use given acute bleeding with ulcers) probably from nsaid's use (pending bx)- he should not take anymore no anticoagulation for now, maybe 1 week after egd procedure if still indicated by cardiology repeat egd in 3 months to assess for healing (2) GI bleeding: Code(s): K92.2 - Gastrointestinal hemorrhage, unspecified Status: Acute Assessment and Plan: resolved, stable hb and also normal bun today (3) Acute blood loss anemia: Code(s): D62 - Acute posthemorrhagic anemia Status: Acute Assessment and Plan: continue to monitor (4) Atrial fibrillation with RVR: Code(s): I48.91 - Unspecified atrial fibrillation Status: Acute Assessment and Plan: rate controlled now, cardiology on board (5) NSAID long-term use: Code(s): Z79.1 - computer terminal operator (current) use of non-steroidal anti-inflammatories (NSAID) Status: Acute Assessment and Plan: he understood that can not take anymore (6) Hypertension: Code(s): I10 - Essential (primary) hypertension Status: Chronic Subjective Date/time seen: 11/16/20 12:16 Interval history: stool getting quality control engineer, hemodynamically stable and tolerating diet Review of Systems Review of Systems: All systems reviewed & are unremarkable except as noted in HPI and below Exam Const: General: comfortable and no acute distress HENMT: General nose exam: Normal nares present Eyes: General: appearance normal, both eyes and all related structures Neck: Neck: supple Resp: Effort & Inspection: normal respiratory effort Auscultation: clear to auscultation bilaterally Cardio: Rhythm: abnormal rhythm irregularly irregular GI: Inspection: non-distended GI Palp: Yes Soft to palpation and No Tenderness to palpation present (GI) Auscultation: normal bowel sounds Skin: General skin exam: normal color Neuro: Speech: normal speech Motor exam (neuro): Normal motor muscle tone present throughout Extrem: General: normal to inspection Objective Data Vital Signs Vital Signs: Vital Signs - 24 hr 11/15/20 12:00 11/15/20 14:00 11/15/20 16:00 Temperature 96.7 F L 97.5 F L Pulse Rate 65 71 73 Respiratory Rate 16 15 Blood Pressure 127/68 126/82 Pulse Oximetry 97 100 11/15/20 18:00 11/15/20 20:00 11/15/20 20:16 Temperature 97.7 F Pulse Rate 72 64 90 Respiratory Rate 15 Blood Pressure 111/85 Pulse Oximetry 95 11/15/20 22:00 11/16/20 00:00 11/16/20 00:02 Temperature 97.4 F L Pulse Rate 80 82 75 Respiratory Rate 15 Blood Pressure 125/86 Pulse Oximetry 97 11/16/20 03:00 11/16/20 04:00 11/16/20 04:01 Temperature 98.1 F Pulse Rate 84 83 85 Respiratory Rate 14 Blood Pressure 137/95 H Pulse Oximetry 98 11/16/20 05:59 11/16/20 08:00 Temperature 97.6 F Pulse Rate 81 107 H Respiratory Rate 19 Blood Pressure 125/69 Pulse Oximetry 97 Intake/Output Intake/Output: Intake & Output 11/13/20 11/14/20 11/15/20 11/17/20 23:59 23:59 23:59 00:59 Intake Total 1050 2576 330 Output Total 885 1200 625 Balance 165 1376 -295 Meds/Results Medications: Active Medications Generic Name Dose Route Start Last Admin Trade Name Kristin PRN Reason Stop Dose Admin Cyanocobalamin 1,000 mcg 11/16/20 09:00 11/16/20 08:32 Cyanocobalamin 1,000 Mcg Tablet PO 1,000 mcg DAILY YOVANY Administration Folic Acid 0.8 mg 11/16/20 09:00 11/16/20 08:32 Folic Acid 0.4 Mg Tablet PO 0.8 mg QAM YOVANY Administration Levothyroxine Sodium 150 mcg 11/16/20 06:30
--- NOTE | 2020-11-16 16:30 | ADMGEN ---
This patient, Cj Galaviz, was admitted to 3 [facility] Surg Room 313-01. Patient/family oriented to hospital policies and general routines including ID bracelet, bed and alarms, visiting hours, pain management, procedures, bathroom and other care routines, personal items, smoking policy, room service/diet, and visiting hours. Information on how to activate the Rapid Response Team has been discussed. Patient/Family are encouraged to report perceived risks to care and to ask questions if they do not understand what they are told or what they should do.
--- NOTE | 2020-11-16 16:32 | PM.IMPN ---
Progress Note: A&P Assessment and Plan (1) Gastric ulcer: Code(s): K25.9 - Gastric ulcer, unspecified as acute or chronic, without hemorrhage or perforation Status: Acute Assessment and Plan: S/p cautery with gold. 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 (5) Atrial fibrillation with RVR: Code(s): I48.91 - Unspecified atrial fibrillation Status: Acute Assessment and Plan: Rate controlled Appreciate Cardiology note (6) Hypothyroid: Code(s): E03.9 - Hypothyroidism, unspecified Status: Chronic Assessment and Plan: Continue to monitor Will follow up in the outpatient setting. (7) Hypertension: Code(s): I10 - Essential (primary) hypertension Status: Chronic Assessment and Plan: Stable Continue home meds Continue to monitor Subjective Date/time seen: 11/16/20 16:32 States that he feels well. Review of Systems Review of Systems: Narrative: no new issues overnight. Constitutional: Comments: no fevers, no rigors, no chills. Cardiovascular: Comments: no palpitations, no pnd, no orthopnea. Respiratory: Comments: no sob, no cough, no sputum production. Gastrointestinal: Comments: started eating, tolerating well, no n/v/abdominal pain. Musculoskeletal: Comments: no joint pain. Integumentary/Breasts: Comments: no rashes Neurologic: Comments: no sensory motor deficit Exam Narrative: Exam Narrative: Sitting in bed. Const: General: comfortable, no acute distress, alert, awake and Physically active Nutritional Appearance: well nourished Orientation/consciousness: patient oriented x3 HENMT: Head: normal to inspection and normocephalic Ears: hearing grossly normal bilaterally General nose exam: Normal external nose present Face and sinus: normal facial exam Eyes: General: appearance normal, both eyes and all related structures Pupils: Equal, round and reactive pupils present EOM: EOMs intact bilaterally Neck: Neck: no lymphadenopathy, supple and no JVD Resp: Effort & Inspection: normal respiratory effort and able to speak in complete sentences Auscultation: clear to auscultation bilaterally Cardio: Rhythm: other (irregularly irregular.) GI: GI Palp: Yes Soft to palpation and Yes No hepatosplenomegaly present Skin: Rashes: no rashes Neuro: General: patient oriented x3 and CN's II-XI intact bilaterally Cranial nerves: Yes CN's II-XII intact bilaterally and Yes Equal, round and reactive pupils present Cognition (Neuro): normal cognition Speech: normal speech Motor exam (neuro): 5/5 motor strength present throughout Extrem: General: no pedal edema Objective Data Vital Signs Vital Signs: Vital Signs - 24 hr 11/15/20 16:00 11/15/20 18:00 11/15/20 20:00 Temperature 97.5 F L 97.7 F Pulse Rate 73 72 64 Respiratory Rate 15 15 Blood Pressure 126/82 111/85 Pulse Oximetry 100 95 11/15/20 20:16 11/15/20 22:00 11/16/20 00:00 Temperature Pulse Rate 90 80 82 Respiratory Rate Blood Pressure Pulse Oximetry 11/16/20 00:02 11/16/20 03:00 11/16/20 04:00 Temperature 97.4 F L Pulse Rate 75 84 83 Respiratory Rate 15 Blood Pressure 125/86 Pulse Oximetry 97 11/16/20 04:01 11/16/20 05:59 11/16/20 08:00 Temperature 98.1 F 97.6 F Pulse Rate 85 81 107 H Respiratory Rate 14 19 Blood Pressure 137/95 H 125/69 Pulse Oximetry 98 97 11/16/20 10:00 11/16/20 12:00 11/16/20 14:29 Temperature 97.6 F Pulse Rate 82 111 H Respiratory Rate 19
--- NOTE | 2020-11-16 16:35 | PC.NURSE ---
This patient, Cj Galaviz, was transferred to [facility] on 11/16/20 at 1625. Personal belongings sent with patient. Report given to Tracy BARILLAS. Appropriate documentation sent with patient.
[2020-11-17] VITALS (9 sets, daily range): BP systolic 105–121; BP diastolic 55–71; PULSE 72–130; RESP 18–20; TEMP 36.3–36.9; O2SAT 93–98
[2020-11-17] MEDS: LEVOTHYROXINE SODIUM 150 MCG TABLET PO (05:57)
[2020-11-17] MEDS: METOPROLOL TARTRATE 50 MG TAB PO (09:51)
[2020-11-17] MEDS: CYANOCOBALAMIN 1,000 MCG TABLET 1000 MCG PO (09:51)
[2020-11-17] MEDS: FOLIC ACID 0.4 MG TABLET 0.8 MG PO (09:51)
[2020-11-17] MEDS: SIMVASTATIN 20 MG TABLET 40 MG PO (09:52)
[2020-11-17] MEDS: PANTOPRAZOLE SODIUM IV 40 MG VIAL IV PUSH (09:52)
--- NOTE | 2020-11-17 15:04 | PM.PNCARD ---
Progress Note: A&P Assessment and Plan (1) Atrial fibrillation with RVR: Code(s): I48.91 - Unspecified atrial fibrillation Status: Acute Assessment and Plan: Persistent atrial fibrillation Very heart rate control. Increase metoprolol to 75 mg b.i.d.. Unable to utilize antiplatelet and or systemic anticoagulation due to acute GI - Initiation of anticoagulation when cleared by GI as an outpatient. Follow up with Dr. Olivera 1 month in the office. Moderate to severe MR by echocardiogram, EF preserved. - Will sign off. Please not hesitate to contact us with additional questions or concerns. Disposition per hospitalist service. (2) Acute blood loss anemia: Code(s): D62 - Acute posthemorrhagic anemia Status: Acute Assessment and Plan: H&H stable. Secondary to bleeding ulcer. Follow H&H. Appreciate GI involvement. (3) GI bleeding: Code(s): K92.2 - Gastrointestinal hemorrhage, unspecified Status: Acute Assessment and Plan: As above. GI following. (4) Hypertension: Code(s): I10 - Essential (primary) hypertension Status: Chronic Assessment and Plan: Stable, no acute issues. Negative lower extremity venous Dopplers. (5) Hypothyroid: Code(s): E03.9 - Hypothyroidism, unspecified Status: Chronic Assessment and Plan: Per primary service. Levothyroxine. 5.980, mildly elevated, subclinical not likely significant contribution to atrial fibrillation. Subjective Date/time seen: Date of service: 11/17/20 15:04 Follow-up for atrial fibrillation in setting of GI bleed. Doing well, asymptomatic. States he is no longer bleeding. No palpitation, chest pain or shortness of breath. Ambulating without difficulty. Heart rate fair control 80s to 120s in AFib. Review of Systems Review of Systems: All systems reviewed & are unremarkable except as noted in HPI and below Constitutional: Constitutional: Reports as per HPI, Reports no additional constitutional complaints, Reports fatigue, Reports headache(s) and Denies weakness Eyes: Eyes: Reports as per HPI and Reports no additional eye complaints ENT: Reports system reviewed and no additional complaints, except as documented, Reports as per HPI and Reports headache(s) Cardiovascular: Cardiovascular: Reports as per HPI, Reports no additional cardiovascular complaints, Denies chest pain, Denies diaphoresis, Reports leg edema, Denies lightheadedness, Denies palpitations, Denies dyspnea and Reports dyspnea on exertion Respiratory: Respiratory: Reports as per HPI, Reports no additional respiratory complaints, Denies hemoptysis, Denies dyspnea and Reports dyspnea on exertion Gastrointestinal: Gastrointestinal: Reports as per HPI, Reports no additional gastrointestinal complaints, Denies abdominal pain, Reports melena and Denies hematochezia Genitourinary: Genitourinary: Reports no additional male genitourinary complaints, Reports as per HPI and Denies hematuria Musculoskeletal: Musculoskeletal: Reports no additional musculoskeletal complaints and Reports as per HPI Integumentary/Breasts: Skin/Breast: Reports system reviewed and no additional complaints, except as docu and Reports as per HPI Neurologic: Reports system reviewed and no additional complaints, except as documented, Reports as per HPI, Reports headache(s) and Denies weakness Psychiatric: Psychiatric: Reports no additional psychiatric complaints and Reports as per HPI Endocrine: Endocrine: Reports no additional endocrine complaints, Reports as per HPI, Reports fatigue and Denies palpitations Hematologic/Lymphatic: Hematologic/Lymphatic: Reports no additional hematologic/lymphatic complaints and Reports as per HPI Allergic/Immunologic: Allergic/Immunologic: Reports no additional allergic/immunologic complaints and Reports as per HPI Exam Narrative: Exam Narrative: General: male no apparent distress lying supine in bed b
--- NOTE | 2020-11-17 17:00 | WPDGIPROGNO ---
Progress Note: A&P Assessment and Plan (1) Gastric ulcer: Code(s): K25.9 - Gastric ulcer, unspecified as acute or chronic, without hemorrhage or perforation Status: Acute Assessment and Plan: several gastric ulcers with a large one with clot, treated with gold probe and one clip, no bleeding (pending biopsy) he can go home today with protonix 40 mg bid or equivalent (I would favor mcc use given acute bleeding with ulcers) probably from nsaid's use (pending bx)- he should not take anymore no anticoagulation for now, maybe 1 week after egd procedure if still indicated by cardiology repeat egd in 3 months to assess for healing no contraindications to go home by gi standpoint (2) GI bleeding: Code(s): K92.2 - Gastrointestinal hemorrhage, unspecified Status: Acute Assessment and Plan: resolved, stable hb normal BM now (3) Acute blood loss anemia: Code(s): D62 - Acute posthemorrhagic anemia Status: Acute Assessment and Plan: continue to monitor (4) Atrial fibrillation with RVR: Code(s): I48.91 - Unspecified atrial fibrillation Status: Acute Assessment and Plan: rate controlled now, cardiology on board (5) NSAID long-term use: Code(s): 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 of non-steroidal anti-inflammatories (NSAID) Status: Acute Assessment and Plan: he understood that can not take anymore (6) Hypertension: Code(s): I10 - Essential (primary) hypertension Status: Chronic Subjective Date/time seen: 11/17/20 17:00 Interval history: he was moved to floor, had normal color stool without more bleeding, tolerating diet Review of Systems Review of Systems: All systems reviewed & are unremarkable except as noted in HPI and below Exam Const: General: comfortable and no acute distress HENMT: General nose exam: Normal nares present Eyes: General: appearance normal, both eyes and all related structures Neck: Neck: supple Resp: Effort & Inspection: normal respiratory effort Auscultation: clear to auscultation bilaterally Cardio: Rhythm: abnormal rhythm irregularly irregular GI: Inspection: non-distended GI Palp: Yes Soft to palpation and No Tenderness to palpation present (GI) Auscultation: normal bowel sounds Skin: General skin exam: normal color Neuro: Speech: normal speech Motor exam (neuro): Normal motor muscle tone present throughout Extrem: General: normal to inspection Objective Data Vital Signs Vital Signs: Vital Signs - 24 hr 11/16/20 20:00 11/16/20 22:21 11/17/20 00:00 Temperature 98.3 F Pulse Rate 88 88 86 Respiratory Rate 20 Blood Pressure 116/73 Pulse Oximetry 98 11/17/20 04:00 11/17/20 06:00 11/17/20 08:00 Temperature 97.3 F L Pulse Rate 72 82 106 H Respiratory Rate 18 Blood Pressure 105/55 L Pulse Oximetry 95 11/17/20 08:53 11/17/20 09:51 11/17/20 12:00 Temperature Pulse Rate 80 80 Respiratory Rate Blood Pressure Pulse Oximetry 93 11/17/20 14:00 11/17/20 16:00 Temperature 98.5 F Pulse Rate 89 130 H Respiratory Rate 20 Blood Pressure 121/71 Pulse Oximetry 98 Intake/Output Intake/Output: Intake & Output 11/14/20 11/15/20 11/16/20 11/17/20 22:59 22:59 23:59 23:59 Intake Total 1080 Output Total 350 Balance 730 Meds/Results Medications: Active Medications Generic Name Dose Route Start Last Admin Trade Name Freq PRN Reason Stop Dose Admin Cyanocobalamin 1,000 mcg 11/16/20 09:00 11/17/20 09:51 Cyanocobalamin 1,000 Mcg Tablet PO 1,000 mcg DAILY YOVANY Administration Folic Acid 0.8 mg 11/16/20 09:00 11/17/20 09:51 Folic Acid 0.4 Mg Tablet PO 0.8 mg QAM YOVANY Administration Levothyroxine Sodium 150 mcg 11/16/20 06:30 11/17/20 05:57 Levothyroxine Sodium 150 Mcg Tablet PO 150 mcg DAILY@0630 YOVANY Administration Metoprolol Tartrate 75 mg 11/17/20 21:00 Metoprolol Tartrate 25
--- NOTE | 2020-11-17 17:31 | PM.DS ---
DS: Admitting Diagnosis Admitting Diagnosis Admitting Diagnosis: (1) Atrial fibrillation with RVR: Code(s): I48.91 - Unspecified atrial fibrillation Status: Acute Assessment and Plan: Patient was placed on a Cardizem drip. An echo has been ordered for the patient. We cannot anticoagulate the patient at this time due to his GI bleed. Cardiology has been consulted. It looks like the patient had been on atenolol previously. However the patient does not have any history of atrial fibrillation. (2) GI bleeding: Code(s): K92.2 - Gastrointestinal hemorrhage, unspecified Status: Acute Assessment and Plan: Dr. Bardales 6 the patient to GI lab. Please see the report a hiatal hernia and unspecified gastric ulcer on his EGD. Hold aspirin. (3) Hypothyroid: Code(s): E03.9 - Hypothyroidism, unspecified Status: Chronic Assessment and Plan: Continue with Synthroid. (4) Hypertension: Code(s): I10 - Essential (primary) hypertension Status: Chronic Assessment and Plan: Continue with home medications. 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 DS: Discharge Diagnosis Discharge Diagnosis (1) Gastric ulcer: Code(s): K25.9 - Gastric ulcer, unspecified as acute or chronic, without hemorrhage or perforation Status: Acute (2) NSAID long-term use: Code(s): Z79.1 - senior care (current) use of non-steroidal anti-inflammatories (NSAID) Status: Acute (3) Acute blood loss anemia: Code(s): D62 - Acute posthemorrhagic anemia Status: Acute (4) GI bleeding: Code(s): K92.2 - Gastrointestinal hemorrhage, unspecified Status: Acute (5) Atrial fibrillation with RVR: Code(s): I48.91 - Unspecified atrial fibrillation Status: Acute (6) Hypothyroid: Code(s): E03.9 - Hypothyroidism, unspecified Status: Chronic (7) Hypertension: Code(s): I10 - Essential (primary) hypertension Status: Chronic DS: Summary Hospital Course Reason for hospitalization: GI bleed Hospital Course: Cj Galaviz is a 75-year-old male patient who takes a daily aspirin. He has no prior history of having atrial fibrillation. Presented to ED with AFib with RVR . Cardiology was consulted. The patient was started on a Cardizem drip. The patient came here today because he noticed that he had dark stools last night and again early this morning he had a large dark stool with some red blood in it. The patient has been taking naproxen daily for few weeks as well. He has chronic bilateral lower leg swelling but states that it is of about the same. [facility]. H&H 11.2 and 34.3. Sodium 136. IV fluids, and Cardizem drip. He was admitted to IMU. Consults obtained: -Cardiology -GI Patient underwent EGD which showed bleeding ulcer which was cauterized with Gold and another ulcer was clipped, patient tolerated the procedure well. From Cardiology standpoint he was able to wean off of Cardizem drip for A.fib with RVR and all anticoagulation was held due to GI bleed. Will follow up in the outpatient setting for this with Cardiology.Hi Atenolol was discontinued and was started on Metoprolol 75 mg po BID instead. Patient was discharged home in stable stage. Status at Discharge Cognitive/behavioral status at discharge: AOX3 Functional status at discharge: independent ambulation Overall status at discharge: patient is back to baseline Time Spent with Patient Time attestation: Total time spent providing and/or coordinating discharge services: Exam Const: General: cooperative, healthy appearing, comfortable, no acute distress, well developed, alert, awake and Physically active Nutritional Appearance: average body habitus Orientation/consciousness: patient oriented x3 HE
== END 2020-11-17 18:39 | disposition home or self-care (01) | DRG 377 ==
LOC: ANHED 11:35 → ANHENDO 11:47 → ANHIMU 14:06 → ANHICU 11-15 08:09 → ANH3MEDSUR 11-17 02:19 → ANHICU 11-19 10:21 → ANHIMU 11-19 10:21
PROVIDERS: Internal Medicine Cardiovascular Disease; Internal Medicine Gastroenterology; Admitting Provider Internal Medicine; Emergency Provider General Practice; Visit Provider Internal Medicine
PROC: 0DJ08ZZ Inspection of Upper Intestinal Tract, Via Natural or Artificial Opening Endoscopic (ICD-10-PCS; CPT 43235; principal; 2020-11-14 15:45)
DX: K25.4 Chronic or unspecified gastric ulcer with hemorrhage (principal); Q79.1 Other congenital malformations of diaphragm; D62 Acute posthemorrhagic anemia; I48.91 Unspecified atrial fibrillation; E03.9 Hypothyroidism, unspecified; K44.9 Diaphragmatic hernia without obstruction or gangrene; Z87.820 Personal history of traumatic brain injury
CPT/HCPCS: 36415; 71045; 80048; 80053; 83735; 84439; 84443; 84480; 85014; 85018; 85025; 85027; 85610; 85730; 86850; 86900; 86901; 87081; 88305; 88342; 93005; 93306; 93970; 96365; 96366; 96375; 99285; A9270; C9113; G0378; J2001; J2704; J7040; J7060; J7120

== ENCOUNTER 2021-03-25 01:52 | Day surgery (SDC) | payer MEDICARE, OTHER, SELFPAY ==
[2021-03-11 14:05] VITALS: BMI 35.7
--- NOTE | 2021-03-24 10:04 | P.PNAN_ITS ---
Anes - Initial Pre Proc Eval Procedure: Operation Date: 03/25/21 09:00 Proposed Procedures p Esophagogastroduodenoscopy - Alexei Iqbal MD Date/Time: 03/24/21 10:04 Surgeon: Alexei Iqbal MD Pre Op Diagnosis: Gastric Ulcer Patient Data Age: 75 Gender: M Height: 1.78 m Weight: 113 kg Allergies Allergy/AdvReac Type Severity Reaction Status Date / Time No Known Allergies Allergy Verified 03/25/21 07:51 Home Medications Medication Instructions Recorded Confirmed Type cyanocobalamin (vitamin B-12) 1,000 mcg PO DAILY 11/14/20 03/25/21 History folic acid 0.8 mg PO DAILY 11/14/20 03/25/21 History levothyroxine [Synthroid] 150 mcg PO DAILY 11/14/20 03/25/21 History simvastatin 40 mg PO DAILY 11/14/20 03/25/21 History cholecalciferol (vitamin D3) 100 100 mcg PO DAILY 01/01/21 03/25/21 History mcg (4,000 unit) capsule metoprolol tartrate 25 mg tablet 150 mg PO Q12HR tablet 01/01/21 03/25/21 History pantoprazole 40 mg tablet,delayed 40 mg PO BID #60 tablet 01/01/21 03/25/21 Rx release Patient hx anesthesia problems: none Family hx anesthesia problems: none PMFSH Past Medical History Medical History (Updated 03/24/21 @ 10:04 by Gustavo Almeida DO) Acute blood loss anemia Afib BMI 36.0-36.9,adult Colon cancer screening Gastric ulcer GI bleeding Hypertension Hypothyroid Mitral valve regurgitation mod to severe NSAID long-term use TBI (traumatic brain injury) Residual left-sided weakness. Surgical History Surgical History H/O colonoscopy with polypectomy History of appendectomy History of tonsillectomy and adenoidectomy Family History Family History Father Heart disease Mother Diabetes mellitus Social History Social History Social History: The patient lives home alone. He is and has no children. He desires to have his sister is a durable power aviation tactical readiness officer. He lives approximately 6 miles from her house. 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 the patient desires to be a full code. Years smoked: 30 Smoking status: Former smoker Tobacco type: cigarettes Smoking end date: 11/08/02 Alcohol intake: current Drinks per week: 10 Alcohol use details: BEER Substance use: never Living arrangements: alone Gender identity (if verbalized by the patient): Male Spiritual care concerns: No Anes - Eval Final PreProcedure Day of Procedure 03/24/21 10:04 Patient weight: obese Heart: regular rate and rhythm Lungs: clear to auscultation and normal air movement Airway: Mallampati scale class II Neurological: alert and oriented Last oral intake: >/= 8 hours ASA classification: III Emergent: no Anesthetic plan: proceed Anesthesia type and monitoring: general GIVS and standard monitoring Informed Consent: The patient's anesthetic plan and its attendant risks and benefits were discussed with the patient/family/POA. Questions were solicited and answers provided to the satisfaction of the patient/family/POA.
[2021-03-25 07:54] VITALS: BP 145/98; PULSE 99; RESP 18; TEMP 36.2; O2SAT 100; BMI 36.5
[2021-03-25] MEDS: LACTATED RINGERS 1,000 ML 150 ML IV CONT (08:02)
--- NOTE | 2021-03-25 08:53 | PM.HPGS ---
History of Present Illness History of Present Illness Consent: Risks, benefits, and alternatives have been discussed and questions answered. Patient agrees to proceed with procedure. Chief complaint: Gastric Ulcer Narrative: Cj Galaviz is a 75 year old male with bleeding gastric ulcer 11/2020 in setting of nsaid's, now using protonix bid and asymptomatic Review of Systems Constitutional: Constitutional: Denies headache(s) and Denies weakness Eyes: Eyes: Denies blurry vision ENT: Reports Normal hearing present, Denies headache(s) and Denies neck pain Cardiovascular: Cardiovascular: Denies chest pain and Denies dyspnea Respiratory: Respiratory: Denies dyspnea Gastrointestinal: Gastrointestinal: Reports no additional gastrointestinal complaints Genitourinary: Genitourinary: Denies dysuria Musculoskeletal: Musculoskeletal: Denies neck pain Integumentary/Breasts: Skin/Breast: Denies dry skin Neurologic: Reports Normal hearing present, Denies headache(s) and Denies weakness Psychiatric: Psychiatric: Denies anxiety Endocrine: Endocrine: Denies change in body appearance Hematologic/Lymphatic: Hematologic/Lymphatic: Denies easy bleeding Allergic/Immunologic: Allergic/Immunologic: Denies urticaria [facility] Past Medical History Medical History (Updated 03/24/21 @ 10:04 by Gustavo Almeida DO) Acute blood loss anemia Afib BMI 36.0-36.9,adult Colon cancer screening Gastric ulcer GI bleeding Hypertension Hypothyroid Mitral valve regurgitation mod to severe NSAID long-term use TBI (traumatic brain injury) Residual left-sided weakness. Surgical History Surgical History H/O colonoscopy with polypectomy History of appendectomy History of tonsillectomy and adenoidectomy Family History Family History Father Heart disease Mother Diabetes mellitus Social History Social History Social History: The patient lives home alone. He is and has no children. He desires to have his sister is a durable power immigration attorney. He lives approximately 6 miles from her house. 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 Years smoked: 30 Smoking status: Former smoker Tobacco type: cigarettes Smoking end date: 11/08/02 Alcohol intake: current Drinks per week: 10 Alcohol use details: BEER Substance use: never Living arrangements: alone Gender identity (if verbalized by the patient): Male Spiritual care concerns: No Meds Home Medications and Allergies Home Medications Medication Instructions Recorded Confirmed Type cyanocobalamin (vitamin B-12) 1,000 mcg PO DAILY 11/14/20 03/25/21 History folic acid 0.8 mg PO DAILY 11/14/20 03/25/21 History levothyroxine [Synthroid] 150 mcg PO DAILY 11/14/20 03/25/21 History simvastatin 40 mg PO DAILY 11/14/20 03/25/21 History cholecalciferol (vitamin D3) 100 100 mcg PO DAILY 01/01/21 03/25/21 History mcg (4,000 unit) capsule metoprolol tartrate 25 mg tablet 150 mg PO Q12HR tablet 01/01/21 03/25/21 History pantoprazole 40 mg tablet,delayed 40 mg PO BID #60 tablet 01/01/21 03/25/21 Rx release Allergies Allergy/AdvReac Type Severity Reaction Status Date / Time No Known Allergies Allergy Verified 03/25/21 07:51 Vital Signs Vital Signs - 24 hr 03/25/21 07:54 Temperature 97.2 F L Pulse Rate 99 Respiratory Rate 18 Blood Pressure 145/98 H Pulse Oximetry 100 Exam Const: General: comfortable and no acute distress HENMT: General nose exam: Normal nares present Eyes: General: appearance normal, both eyes and all related structures Neck: Neck: no JVD Resp: Auscultation: clear to auscultation bilaterally Cardio: Rate: regular rate Rhythm: regular rhythm GI: Inspec
[2021-03-25 09:13] VITALS: BP 146/98; PULSE 106; RESP 22; O2SAT 94
[2021-03-25 09:23] VITALS: BP 151/95; PULSE 96; RESP 18; O2SAT 95
[2021-03-25 09:33] VITALS: BP 152/97; PULSE 98; RESP 20; O2SAT 95
== END 2021-03-25 09:43 | disposition home or self-care (01) ==
PROVIDERS: Visit Provider Internal Medicine Gastroenterology
PROC: 0DJ08ZZ Inspection of Upper Intestinal Tract, Via Natural or Artificial Opening Endoscopic (ICD-10-PCS; CPT 43235; principal; 2021-03-25 09:00)
DX: Z09 Encounter for follow-up examination after completed treatment for conditions other than malignant neoplasm (principal); K29.50 Unspecified chronic gastritis without bleeding; Z87.11 Personal history of peptic ulcer disease; I48.91 Unspecified atrial fibrillation; I10 Essential (primary) hypertension; E03.9 Hypothyroidism, unspecified; I34.0 Nonrheumatic mitral (valve) insufficiency; Z87.820 Personal history of traumatic brain injury; Z87.891 Personal history of nicotine dependence
CPT/HCPCS: 43239; 88305; 88342; J2704; J7120

== ENCOUNTER 2025-06-24 21:00 | Emergency (ER) | payer MEDICARE, OTHER, SELFPAY ==
--- OUTSIDE RECORDS SUMMARY | 2025-06-24 08:30 | XMS_ITS | Encounter Summary ---
Author Organization [facility] Healthcare Address [address] [place] [address] Care Team Providers Care Trout Farmer Name Role Phone Mauricio De La Rosa MD Primary Care Provider [phone] Geraldine MartinW Unavailable Unavaila Yelena Tovar RN Unavailable Unav ailable OppeShlomo stevens MD Unavailable [phone] Kenneth Curran MD Unavailable [phone] Odalys Stiles MD Unavailable [phone] Austin Apple MD Unavailable [phone] Reason for Visit * Episode Based Medications (Routine) - Authorized Specialty Diagnoses / Procedures Referred By Contac t Referred To Contact Diagnoses 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) Oppelt, Shlomo Temple MD [address] [facility] [address] [place] [address] Phone: tel: fax: [facility] at [address] [place] [address] Phone: tel: fax: Referral ID Status Reason Start Date Expiration Date V isits Requested Visits Authorized [id number] Authorized 06/17/2025 06/03/2026 1 20 Encounter Details Date Type Department Care Team (Late st Contact Info) Description 06/24/2025 8:30 AM CDT Lab [facility] [place] at [address] [address] 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 No 03/05/2025 Social Connection and Isolation Panel Answer Date Recorded In a typical week, how many times do you talk on the phone with family, friends, or neighbors? More than three times a week 03/05/2025 How often do you get togethe r with friends or relatives? More than three times a week 03/05/2025 How often do you attend chur ch or mu-ism services? 1 to 4 times per year 03/05/2025 Active Member of Clubs or Organizations Not on f ile 03/05/2025 How often do you attend meet ings of the clubs or organizations you belong to? Never 03/05/2025 Are you , , di vorced, , never , or living with a partner? 03/05/2025 Overall Financial Resource Strain (CARDIA) Answe r Date Recorded How hard is it for you to pa y for the very basics like food, housing, medical care, and heating? Not hard at all 03/05/2025 PHQ-2 Answer Date Recorded PHQ-2 Total Score 0 03/05/2025 Hunger Vital Sign Answer Date Recorded Within the past 12 months, y ou worried that your food would run out before you got the money to buy more. Never true 03/05/20 25 Within the past 12 months, t he food you bought just didn't last and you didn't have money to get more. Never true 03/05/2025 PRAPARE - Transportation Answer Date Re corded In the past 12 months, has l ack of transportation kept you from medical appointments or from getting medications? No 09/2024 In the past 12 months, has l ack of transportation kept you from meetings, work, or from getting things needed for daily living? No 03/05/2025 Housing Stability Vital Sign Answer Chapito e Recorded In the last 12 months, was t here a time when you were not able to pay the mortgage or rent on time? No 03/05/2025 In the past 12 months, how m any times have you moved where you were living? 0 03/05/2025 At any time in the past 12 m onths, were you homeless or living in a half-way (including now)? No 03/05/2025 AUDIT-C Answer Date Recorded Frequency of Alcohol Consumption Not on file 06/24/2025 Q2: How many drinks containi ng alcohol do you have on a typical day when you are drinking? Patient does not drink Frequency of Binge Drinking Not on file 06/06 Personal Safety Answer Date Recorded Have you ever been in or are you currently in a harmful physical or emotional relationship or is someone making you feel afraid or unsafe? 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 73 m2 Comment: Interpretive Data Reference Interval Normal >/= 90 mL/min/1.73m2 Mildly decreased* 60 - 89 mL/min/1.73m2 Mildly to moderately decreased 45 - 59 mL/min/1.73m2 Moderately to severely decreased 30 - 44 mL/min/1.73m2 Severely decreased 15 - 29 mL/min/1.73m2 Kidney Failure < 15 mL/min/1.73m2 *Relative to young adult level Estimated glomerular filtration rate is determined by the 2020 CKD-EPI equation recommended by the National Kidney Foundation (A Unifying Approach to GFR Estimation: Recommendations of the NKF-ASK Task Force on Reassessing the Inclusion of Race in Diagnosing Kidney Disease, JASN 2020). The CKD-EPI equation should not be used for patients with unstable renal function and has not been validated in children and those over 70. Current interpretive data was last reviewed 2021. Testing performed by: [address] [address] Blood 06/24/2025 7:54 AM CDT 06/24/2025 8:01 AM CDT Shlomo Villalba MD LAB BLOOD ORDERABLES Final Result [facility] [address] [facility] Department [place] [address] * (ABNORMAL) Differential, auto (06/24/2025 7:54 AM CDT) Pathologist [facility] Neutrophil abs 6.73(H) 1.50 - 6.50 K/cumm Comment:Testing performed by : [address] [address] Imm gran abs 0.05 0.00 - 0.10 K/cumm [facility]AC[facility]A BRAUN Comment:Testing performed by : [address] [address] Lymphocyte abs 1.74 0.80 - 3.30 K/cumm GRAC[facility]A BRAUN Comment:Testing performed by : [address] [address] Monocyte abs 0.83(H) 0.20 - 0.80 K/cumm [facility] Comment:Testing performed by : [address] [address] Eosinophil abs 0.03 0.00 - 0.50 K/cumm [facility] Comment:Testing performed by : [address] [address] Basophil abs 0.01 0.00 - 0.10 K/cumm [facility] Comment:Testing performed by : [address] [address] Neutrophil pct 71.8 % [facility] Comment: Interpretive Data Percent cell count reference ranges are not reported, since discordance with absolute values may lead to misinterpretation of CBC data. Current Interpretive Data was last revised on 2017. Testing performed by: [address] [address] Imm gran pct 0.5 % [facility] Comment: Interpretive Data Percent cell count reference ranges are not reported, since discordance with absolute values may lead to misinterpretation of CBC data. Current Interpretive Data was last revised on 2017. Testing performed by: [address] [address] Lymphocyte pct 18.5 % [facility] Comment: Interpretive Data Percent cell count reference ranges are not reported, since discordance with absolute values may lead to misinterpretation of CBC data. Current Interpretive Data was last revised on 2017. Testing performed by: [address] [address] Monocyte pct 8.8 % [facility] Comment: Interpretive Data Percent cell count reference ranges are not reported, since discordance with absolute values may lead to misinterpretation of CBC data. Current Interpretive Data was last revised on 2017. Testing performed by: [address] [address] Eosinophil pct 0.3 % [facility] Comment: Interpretive Data Percent cell count reference ranges are not reported, since discordance with absolute values may lead to misinterpretation of CBC data. Current Interpretive Data was last revised on 2017. Testing performed by: [address] [place] [address] Basophil pct 0.1 % [facility]A Comment: Interpretive Data Percent cell count reference ranges are not reported, since discordance with absolute values may lead to misinterpretation of CBC data. Current Interpretive Data was last revised on 2017. Testing performed by: [address] [address] Blood 06/24/2025 7:54 AM CDT 06/24/2025 8:01 AM CDT Shlomo Villalba MD LAB BLOOD ORDERABLES Final Result Performing Organization Address City/[facility] Co de Phone Number [address]INCESS[address] [place] [address] * PSA diagnostic (06/24/2025 7:54 AM CDT) PSA-Total 1.87 <=6.20 ng/mL Comment: Interpretive Data AGE SEX REFERENCE INTERVAL 0 minutes-150 years Female None 0 minutes-49 years Male None 50-59 years Male 0-3.90 60-69 years Male 0-5.40 70-79 years Male 0-6.20 80-150 years Male 0-6.20 The Andrea PSA Total assay procedure was used. Results from different manufacturers or methods may not be comparable. Serial testing should be performed using the same method. Current interpretive data last revised 22. Testing performed by: [address] [address] Blood 06/24/2025 7:54 AM CDT 06/24/2025 9:41 AM CDT Shlomo Villalba MD LAB BLOOD ORDERABLES Final Result Performing Organization Address City/[facility] Co de Phone Number [facility] [address] [facility] [place] [address] * (ABNORMAL) CBC with auto differential (06/24/2025 7:54 AM CDT) WBC 9.39 3.80 - 9.90 K/cumm Comment:Testing performed by : [address] [address] Hgb 11.0(L) 13.0 - 17.5 g/dL [facility] Comment:Testing performed by : [address] [address] Hct 35.6(L) 38.9 - 50.3 % [facility] Comment:Testing performed by : [address] [address] Plt 219 150 - 400 K/cumm [facility] Comment:Testing performed by : [address] [address] MPV 8.9(L) 9.1 - 12.3 fL [facility] Comment:Testing performed by : [address] [address] RBC 4.16(L) 4.30 - 5.80 M/cumm [facility] Comment:Testing performed by : [address] [address] MCV 85.6 81.3 - 96.4 fL CERNER Comment:Testing performed by : [address] [address] MCH 26.4(L) 27.1 - 33.3 pg [facility] Comment:Testing performed by : [address] [address] MCHC 30.9(L) 32.3 - 35.7 g/dL [facility] Comment:Testing performed by : [address], [address] RDW CV 15.5(H) 11.1 - 14.9 % [facility] Comment:Testing performed by : [address], [address] RDW SD 47.8 35.7 - 48.1 fL [facility] Comment:Testing performed by : [address] [address] NRBC abs 0.00 0.00 - 0.01 K/cumm [facility]A Comment:Testing performed by : [address] [address] ANC Prelim 6.73(H) 1.50 - 6.50 K/cumm [facility] BRAUN Comment: Interpretive Data The rapid ANC is a preliminary automated count and may vary from the final ANC (Neut Abs) reported in the WBC differential that follows. Current interpretive data was last revised 2024. Testing performed by: [address] [address] Blood 06/24/2025 7:54 AM CDT 06/24/2025 8:01 AM CDT us Shlomo Villalba MD LAB BLOOD ORDERABLES Final Result [facility] [address] [facility] [place] [address] * (ABNORMAL) Comprehensive metabolic panel (06/24/2025 7:54 AM CDT) Sodium 132(L) 135 - 145 mmol/L Comment:Testing performed by : [address] [address] Potassium, pl 4.5 3.3 - 4.9 mmol/L [facility] Comment:Testing performed by : [address] [address] Chloride 95(L) 97 - 110 mmol/L [facility] Comment:Testing performed by : [address] [address] CO2 28 22 - 32 mmol/L [facility] Comment:Testing performed by : [address] [address] Anion gap 9 2 - 15 mmol/L [facility] Comment:Testing performed by : [address] [address] BUN 25 6 - 25 mg/dL [facility] Comment:Testing performed by : [address] [address] Creatinine 1.00 0.80 - 1.30 mg/dL [facility] Comment:Testing performed by : [address] [address] Glucose 98 70 - 199 mg/dL [facility] Comment: Interpretive Data Fasting glucose >/= 126 mg/dl is diagnostic for diabetes. Fasting is defined as no caloric intake for at least 8 hours. Fasting glucose between 100 mg/dl to 125 mg/dl is diagnostic of prediabetes. In a patient with classic symptoms of hyperglycemia or hyperglycemic crisis, a random glucose >/= 200 mg/dl is diagnostic for diabetes. In the absence of unequivocal hyperglycemia, results should be confirmed by repeat testing. The classification and Diagnosis of Diabetes Diabetes Care 2021; 46: S19-S40. Current interpretive data was last revised 2022. Testing performed by: [address] [address] Calcium 8.8 8.5 - 10.3 mg/dL [facility] Comment:Testing performed by : [address] [address] Bilirubin, total 1.6(H) 0.1 - 1.2 mg/dL [facility] Comment:Testing performed by : [address] [address] Protein, pl 6.3(L) 6.5 - 8.5 g/dL [facility] Comment:Testing performed by : [address] [address] Albumin 3.8 3.5 - 5.0 g/dL [facility] Comment:Testing performed by : [address] [address] Alk phos 78 40 - 130 Units/L [facility] Comment:Testing performed by : [address] [address] ALT 50 7 - 55 Units/L [facility] Comment:Testing performed by : [address] [address] AST 38 10 - 50 Units/L [facility] Comment:Testing performed by : [address] [address] Blood 06/24/2025 7:54 AM CDT 06/24/2025 8:01 AM CDT us Shlomo Villalba MD LAB BLOOD ORDERABLES Final Result [facility] [address] [facility] [place] [address] documented in this encounter Visit Diagnoses Diagnosis 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 room 86617 on 04/10. First swab 04/11, 2nd swab 04/17 04/11 swab negative 04/1704/11/2025 04/11/2025 documented as of this encounter Care Teams Trout Farmer Relationship Specialty Start Date End Date Mauricio De La Rosa MD [address] [place] [address] PCP - General Internal Medicine 11/14/20 Geraldine Martin LCSW Cuff Stitcher 03/04/25 Yelena Lacy, RN Nurse Navigator 03/05/25 Shlomo Villalba MD [address] [facility] [address] [place] [address] Medical Oncologist/Waterworks Pump Station Operator Medical Oncology 05/15/25 Kenneth Curran MD [address] [place] [address] Radiation Oncologist Radiation Oncology 05/15/25 dOalys Stiles MD [address] [facility], [address] [place] [address] Surgeon Otolaryngology 05/15/25 Austin Apple MD [facility] [address] [place] [address] Consulting Physician Neurosurgery 05/30/25 documented as of this encounter
--- OUTSIDE RECORDS SUMMARY | 2025-06-24 09:00 | XMS_ITS | Encounter Summary ---
Author Organization [facility] Healthcare Address [address] [place] [address] Care Team Providers Care Medical Terminologist Name Role Phone Mauricio De La Rosa MD Primary Care Provider [phone] Geraldine MartinW Unavailable Unavaila Yelena Tovar RN Unavailable Unav ailable OpShlomo jay MD Unavailable [phone] Kenneth Curran MD Unavailable [phone] Odalys Stiles MD Unavailable [phone] Austin Apple MD Unavailable [phone] Encounter Details Date Type Department Care Team (Late st Contact Info) Description 06/24/2025 9:00 AM CDT Treatment [facility] Medical Office Building 2 Radiation Oncology [address] [place] [address] Social History Tobacco Use Types Packs/Day Years Used Date Smoking Tobacco: Former Cigarettes 0.1 35 1 968 - 2003 Passive Smoke Exposure: Past Smokeless Tobacco: Never Alcohol Use Standard Drinks/Week Comments Yes 2 (1 standard drink = 0.6 oz pur e alcohol) [facility] Utilities Answer Date Recorded In the past 12 months has [employer], gas, oil, or water company threatened to [...] often do you attend chur ch or pentecostalism services? 1 to 4 times per year [...] any time in the past 12 m [facility], were you homeless or living in a intermediate (including now)? No 03/05/2025 AUDIT-C Answer Date [...] on file documented as of this encounter Visit Diagnoses Not on filedocumented in this encounter Additional Health Concerns Infection Onset Date Last Indicated Resolved Time Lynsey auris, Exposure Comment:Exposed in [facility] room 12151 on 04/10. First swab 04/11, 2nd swab 04/17 04/11 swab negative 04/1704/11/2025 04/11/2025 documented as of this encounter Care Teams Medical Terminologist Relationship Specialty Start Date End Date Mauricio De La Rosa MD [address] [place] [address] PCP - General Internal Medicine 11/14/20 Geraldine Martin LCSW Transfer Professor 03/04/25 Yelena Lacy, RN Nurse Navigator 03/05/25 Shlomo Villalba MD [address] [facility] [address] [place] [address] Medical Oncologist/Plate Grainer Apprentice Medical Oncology 05/15/25 Kenneth Curran MD [address] [place] [address] Radiation Oncologist Radiation Oncology 05/15/25 Odalys Stiles MD [address] [facility], [address] [place] [address] Surgeon Otolaryngology 05/15/25 Austin Apple MD [facility] [address] [place] [address] Consulting Physician Neurosurgery 05/30/25 documented as of this encounter
--- OUTSIDE RECORDS SUMMARY | 2025-06-24 09:30 | XMS_ITS | Encounter Summary ---
Author Organization [facility] Address [address] [place] [address] Phone Care Team Providers Care Wind Energy Project Manager Name Role Phone Mauricio De La Rosa MD Primary Care Provider [phone] Geraldine Martin LCSW Unavailable Unavaila Yelena Tovar RN Unavailable Unav ailable OppeShlomo stevens MD Unavailable [phone] Kenneth Curran MD Unavailable [phone] Odalys Stiles MD Unavailable [phone] Austin Apple MD Unavailable Reason for Visit * Reason Comments Follow-up * Consultation (Routine) - Authorized Specialty Diagnoses / Procedures Referred By Contac t Referred To Contact Oncology Diagnoses 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) Odalys Stiles MD [address] [place] [address] Phone: tel: fax: [facility] [address] [place] [address] [place] [phone] Phone: tel: fax: Referral ID Status Reason Start Date Expiration Date Visits Requested Visits Authorized [id number] Authorized Specialty Services Required 05/13/2025 06/03/2026 [id number] Encounter Details Date Type Department Care Team (Late st Contact Info) Description 06/24/2025 9:30 AM CDT Office Visit [facility] [address] [facility] [address] [place] [address] Shlomo Villalba MD [address] [facility] [address] [place] [address] 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 1 to 4 times per year [...] any time in the past 12 m [facility], were you homeless or living in a [facility] (including now)? No 03/05/2025 AUDIT-C Answer Date [...] on file documented as of this encounter Last Filed Vital Signs Vital Sign Reading Time Taken Comments Blood Pressure 163/97 06/24/2025 9:45 AM CDT Pulse 89 06/24/2025 9:45 AM CDT Temperature 36.4 C (97.5 F) 06/24/2025 9:45 AM CDT Respiratory Rate 20 06/24/2025 9:45 AM CDT Oxygen Saturation 98% 06/24/2025 9:4 5 AM CDT Inhaled Oxygen Concentration - - Weight 118.4 kg (261 lb 0.4 oz) 025 9:45 AM CDT with shoes Height - - Body Mass Index 38.66 06/17/2025 9:30 AM CDT documented in this encounter Functional Status documented as of this encounter Progress Notes * María Schilling, KWESI - 06/24/2025 9:30 AM CDT Cj Galaviz 1945 06/24/2025 Shlomo Villalba MD DIAGNOSES: [id number] Sinonasal squamous cell carcinoma Atrial fibrillation HTN Hyperlipidemia Hx of melanoma of the back (2023) ONCOLOGY HISTORY Cj initially presented in February 2025 with complaints of left eye vision changes with notable proptosis. On 02/14/25, CT neck showed a mass of the left sinonasal cavity. 02/18/25 PET/CT confirmed FDG avidity of this mass, involving the left orbit/left anterior ethmoid cells with destruction of the left orbital roof. There is involvement of the left medial rectus and superior oblique. There was someuptake of bilateral cervical adenopathy in levels Ib-3, raising concern for possible metastatic disease. Biopsy of the lesion confirmed invasive squamous cell carcinoma, nonkeratinizing, p16 positive. On 04/05/25 Dr. Stiles performed a maxillary resection and orbital exenteration. Final specimen showed a 5.1cm (at least) squamous cell carcinoma. +LVSI, -PNI noted. 0/39 LN assessed from the left parotid and levels Ib-IV showed metastatic carcinoma. Of note, subdural tumor was noted in the excisionwhich demonstrated incidentally found meningioma. Initiated adjuvant radiation therapy w/ concurrent cisplatin 06/17/2025. INTERVAL HISTORY: Cj Galaviz here for next chemotherapy. Feels generalized weakness but still able to perform ADLs. No change in hearing. Constipation and using dulcolax and softener at home w/ some relief. Last BM this am. Denies fever/chills, nausea/emesis, diarrhea. REVIEW OF SYSTEMS: A 14-system review of systems was performed and is negative except for that mentioned in HPI. Otherwise all 14 systems are negative. VITALS SIGNS: Vitals BP 163/97 (BP Location: Left arm) Pulse 89 Temp 36.4 ??C (97.5 ??F) (Oral) Resp 20 Wt 118.4 kg (261 lb 0.4 oz) SpO2 98% BMI 38.66 kg/m?? PHYSICAL EXAMINATION: Performance Status: ECOG 0 General: Alert and oriented x3, in no apparent distress. HEENT: skin graft over the left orbit Neck: Supple, without lymphadenopathy. Lungs: Clear to auscultation bilaterally. No crackles or wheezes. Heart: Regular rate and rhythm. No murmurs, rubs, or gallops. Abdomen: Soft, nontender, nondistended. Bowel sounds are positive. Extremities: No clubbing, cyanosis, or edema. Skin: With no rashes. Neuro: Nonfocal. LABORATORY: Recent Results (from the past 24 hours) Comprehensive metabolic panel Collection Time: 06/24/25 7:54 AM Result Value Ref Range Sodium 132 (L) 135 - 145 mmol/L Potassium, pl 4.5 3.3 - 4.9 mmol/L Chloride 95 (L) 97 - 110 mmol/L CO2 28 22 - 32 mmol/L Anion gap 9 2 - 15 mmol/L BUN 25 6 - 25 mg/dL Creatinine 1.00 0.80 - 1.30 mg/dL Glucose 98 70 - 199 mg/dL Calcium 8.8 8.5 - 10.3 mg/dL Bilirubin, total 1.6 (H) 0.1 - 1.2 mg/dL Protein, pl 6.3 (L) 6.5 - 8.5 g/dL Albumin 3.8 3.5 - 5.0 g/dL Alk phos 78 40 - 130 Units/L ALT 50 7 - 55 Units/L AST 38 10 - 50 Units/L CBC with auto differential Collection Time: 06/24/25 7:54 AM Result Value Ref Range WBC 9.39 3.80 - 9.90 K/cumm Hgb 11.0 (L) 13.0 - 17.5 g/dL Hct 35.6 (L) 38.9 - 50.3 % Plt 219 150 - 400 K/cumm MPV 8.9 (L) 9.1 - 12.3 fL RBC 4.16 (L) 4.30 - 5.80 M/cumm MCV 85.6 81.3 - 96.4 fL MCH 26.4 (L) 27.1 - 33.3 pg MCHC 30.9 (L) 32.3 - 35.7 g/dL RDW CV 15.5 (H) 11.1 - 14.9 % RDW SD 47.8 35.7 - 48.1 fL NRBC abs 0.00 0.00 - 0.01 K/cumm ANC Prelim 6.73 (H) 1.50 - 6.50 K/cumm Differential, auto Collection Time: 06/24/25 7:54 AM Result Value Ref Range Neutrophil abs 6.73 (H) 1.50 - 6.50 K/cumm Imm gran abs 0.05 0.00 - 0.10 K/cumm Lymphocyte abs 1.74 0.80 - 3.30 K/cumm Monocyte abs 0.83 (H) 0.20 - 0.80 K/cumm Eosinophil abs 0.03 0.00 - 0.50 K/cumm Basophil abs 0.01 0.00 - 0.10 K/cumm Neutrophil pct 71.8 % Imm gran pct 0.5 % Lymphocyte pct 18.5 % Monocyte pct 8.8 % Eosinophil pct 0.3 % Basophil pct 0.1 % eGFR Collection Time: 06/24/25 7:54 AM Result Value Ref Range eGFR 77 >=60 mL/min/1.73 m2 RAD ONC ARIA SESSION SUMMARY Collection Time: 06/24/25 8:50 AM Result Value Ref Range Course Name [id number] Course Plan Date 05/30/2025 11:58 AM Elapsed Days 7 Treatment Start Date 06/17/2025 Treatment Site LT HEAD_NECK Dose Given To Date (cGy) 1,200 Session Dosage Given (cGy) 200 Plan ID LT HEAD_NECK Fractions Treated 6 Prescribed Dose Per Fraction (cGy) 200 Prescribed Total Dose (cGy) 6,600 ASSESSMENT AND PLAN: In summary, Cj Galaviz is a 80 y.o. gentleman with a resected sinonasal squamous cell carcinoma who initiated adjuvant radiation and cisplatin 06/17/2025. Ethmoid squamous cell carcinoma - s/p surgical resection - concurrent radiation therapy and cisplatin, RT started w/ Magdy 06/17/2025 - here for C2 cisplatin - baseline hearing issues and denies worsening - return in 1 week for C3 - post treatment surveillance includes [address] neck/chest and then PET scan at 4 months. 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 room 21198 on 04/10. First swab 04/11, 2nd swab 04/17 04/11 swab negative 04/1704/11/2025 04/11/2025 documented as of this encounter Care Teams Wind Energy Project Manager Relationship Specialty Start Date End Date Mauricio De La Rosa MD [address] [place] [address] PCP - General Internal Medicine 11/14/20 Geraldine Martin LCSW Geriatric Nurse 03/04/25 Yelena Lacy, RN Nurse Navigator 03/05/25 Shlomo Villalba MD [address] [facility] [address] [place] [address] Medical Oncologist/Ichthyologist Medical Oncology 05/15/25 Kenneth Curran MD [address] [place] [address] Radiation Oncologist Radiation Oncology 05/15/25 Odalys Stiles MD [address] [facility] OTOLARY[facility]OLOGY, [address] [place] [address] Surgeon Otolaryngology 05/15/25 Austin Apple MD [address] [place] [address] Consulting Physician Neurosurgery 05/30/25 documented as of this encounter
--- OUTSIDE RECORDS SUMMARY | 2025-06-24 10:00 | XMS_ITS | Encounter Summary ---
Author Organization [facility] Healthcare Address [address] [place] [address] Care Team Providers Care Claim Specialist Name Role Phone Mauricio De La Rosa MD Primary Care Provider [phone]- [phone] Geraldine MartinW Unavailable Unavaila Yelena Tovar RN Unavailable Unav ailable OpShlomo jay MD Unavailable [phone] Kenneth Curran MD Unavailable [phone] Odalys Stiles MD Unavailable [phone] Austin Apple MD Unavailable [phone] Reason for Visit * Episode Based Medications (Routine) - Authorized Specialty Diagnoses / Procedures Referred By Contac t Referred To Contact Diagnoses 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) Oppelt, Shlomo Temple MD [address] [facility] [address] [place] [address] Phone: tel: fax: [facility] at [address] [place] [address] Phone: tel: fax: Referral ID Status Reason Start Date Expiration Date V isits Requested Visits Authorized [id number] Authorized 06/17/2025 06/03/2026 1 20 Encounter Details Date Type Department Care Team (Late st Contact Info) Description 06/24/2025 10:00 AM CDT Infusion [facility] at [address] [place] [address] 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 1 to 4 times per year [...] were you homeless or living in a longterm (including now)? No 03/05/2025 AUDIT-C Answer Date [...] Functional Status documented as of this encounter Nursing Notes * Oscar Machado, RN - 06/24/2025 10:00 AM CDT Oncology Nursing Note [facility] Cj Galaviz is a 80 y.o. male who presents for treatment cycle 2, day 1 of Cisplatin. Pre-treatment Nursing Assessment Nursing Assessment LOC: Alert, Awake Constitutional: Weakness Fatigue: None Any falls since your last visit?: No Orientation: Oriented x4 Behavior: Calm Speech: Clear Language: No aphasia Hearing: At Baseline Vision: At baseline Peripheral Neuropathy: No Oral Mucosa Grade: Normal (0) Pt states has potential to be ?: N/A Shortness of Breath?: Yes Lungs auscultated PRN: No Pt is on oxygen?: No Respiratory Effort Characteristics: Dyspnea exertion Appetite: Good What diet do you follow at home?: Regular Have You Recently Lost Weight Without Trying?: No Have you been eating poorly because of a decreased appetite?: No Malnutrition Screening Tool (MST) Score: 0 Nausea/Vomiting: No Diarrhea: No Constipation: Yes (Takes stool softeners at home as needed) Last BM Date: 06/24/25 Skin Condition/Temp: Warm, Dry Swelling: Yes Swelling location: LLE, RLE, LUE, RUE Encounter Vitals BP: 163/97 (06/24/2025 9:45 AM) Pulse: 89 (06/24/2025 9:45 AM) Resp: 20 (06/24/2025 9:45 AM) Temp: 36.4 ??C (97.5 ??F) (06/24/2025 9:45 AM) Temp src: Oral (06/24/2025 9:45 AM) SpO2: 98 % (06/24/2025 9:45 AM) Weight: 118.4 kg (261 lb 0.4 oz) (with shoes) (06/24/2025 9:45 AM) Pain Score: 0 - No pain Treatment Patient: met treatment parameters Pre blood return: Brclint Galaviz tolerated treatment well. Patient was frequently observed and monitored throughout the administration of their treatment. Post blood return: Brisk IV access post infusion: NS Patient Education Treatment Education: Information/teaching given to patient including fall prevention, pain, signs and symptoms of infection, bleeding, adverse reaction, symptom management, process and procedure related to today's visit, and when to notify MD Response: Verbalizes understanding Discharge Plan Discharge instructions given to patient. Future appointments given and reviewed with treatment plan. 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)- Primary documented in this encounter Administered Medications Inactive Administered Medications - up to 3 most recent administrations Medication Order MAR Action Action Date Dose Rate Site aprepitant (CINVANTI) injection 130 mg 130 mg, intravenous, at 540 mL/hr, Administer over 2 Minutes, Once, On 06/24/25 at 1115, For 1 dose, IV over 2 minutes; avoid shaking.Indications: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 Irritant at concentrations less than or equal to 0.4 mg/mL. 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9% 1,014 mL infusion 507 mL/hr, intravenous, Administer over 2 Hours, Once, On Tue06/24/25 at 1415, For 1 doseIndications: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) New Bag 06/24/2025 1:58 PM CDT 507 mL/hr 507 mL/hr sodium chloride 0.9% bolus 1,000 mL 1,000 mL, intravenous, at 500 mL/hr, Administer over 2 Hours, Once, On Tue06/24/25 at 1115, For 1 doseIndications: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) Restarted 06/24/2025 11:57 AM CDT 500 mL/hr New Bag 06/24/2025 10:41 AM CDT 1,000 mL 500 mL/hr sodium chloride 0.9% infusion 0-999 mL/hr, intravenous, As needed, For priming and flushing, Starting on Tue25 at 1249, Infuse 20 ml at the same rate the drug was infusing to ensure full drug delivery.Indications: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 room 64333 on 04/10. First swab 04/11, 2nd swab 04/17 04/11 swab negative 04/1704/11/2025 04/11/2025 documented as of this encounter Care Teams Claim Specialist Relationship Specialty Start Date End Date Mauricio De La Rosa MD [address] [place] [address] PCP - General Internal Medicine 11/14/20 Geraldine Martin LCSW Back Hoe Machine Operator 03/04/25 Yelena Lacy, RN Nurse Navigator 03/05/25 Shlomo Villalba MD [address] [facility] [address] [place] [address] Medical Oncologist/Oleo Hasher And Renderer Medical Oncology 05/15/25 Kenneth Curran MD [address] [place] [id number] Radiation Oncologist Radiation Oncology 05/15/25 Odalys Stiles MD [address] [facility] DEPT OTOLARYNGOLOGY, [address] [place] [address] Surgeon Otolaryngology 05/15/25 Austin Apple MD [address] [place] [address] Consulting Physician Neurosurgery 05/30/25 documented as of this encounter
--- OUTSIDE RECORDS SUMMARY | 2025-06-24 11:30 | XMS_ITS | Encounter Summary ---
Author Organization [facility] Healthcare Address [address] [place] [address] Care Team Providers Care Central Office Maintainer Name Role Phone Mauricio De La Rosa MD Primary Care Provider [phone] Geraldine MartinW Unavailable Unavaila Yelena Tovar RN Unavailable Unav ailable OpShlomo jay MD Unavailable [phone] Kenneth Curran MD Unavailable [phone] Odalys Stiles MD Unavailable Austin Apple MD Unavailable [phone] Reason for Visit * Reason Comments Nutritional Assessment Head And Neck Cancer Nutrition Counseling Encounter Details Date Type Department Care Team (Latest Contact Info) Description 06/24/2025 11:30 AM CDT Clinical Support [facility] Medical Office Building 2 Radiation Oncology [address] [place] [address] 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 1 to 4 times per year [...] any time in the past 12 m [facility], were you homeless or living in a chcf (including now)? No 03/05/2025 AUDIT-C Answer Date [...] as of this encounter Progress Notes * Tracy Urbina, DARREN - 06/24/2025 11:30 AM CDT Oncology Nutrition Follow up Assessment 80 y.o. 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 Abnormal [place] body weight: 70.5 kg (155 lb 5.6 oz) Adjusted ideal body weight: 89.6 kg (197 lb 9.9 oz) Estimated daily nutritional needs: Calories: 0767-0792 (25-30 kcal/kg ABW) Protein: 140-174g (1.2-1.5gm /kg ABW) Fluid: 98-118 Oz Current Outpatient Medications Medication Instructions acetaminophen (TYLENOL) 650 mg, oral, Every 4 hours apixaban (ELIQUIS) 5 mg, oral, 2 times daily cyanocobalamin (VITAMIN B-12) 1,000 mcg, Nightly dexAMETHasone (DECADRON) 4 mg tablet Take 8 mg (2 tabs) by mouth once on Day 2, then 8 mg (2 tabs) twice daily on Days 3 and 4. folic acid 800 mcg, Nightly levothyroxine (SYNTHROID) 125 mcg, Nightly metoprolol (LOPRESSOR) 150 mg, oral, 2 times daily ondansetron (ZOFRAN) 8 mg, oral, Every 8 hours PRN, Use if prochlorperazine does not stop nausea. prochlorperazine (COMPAZINE) 10 mg, oral, Every 6 hours PRN, Use first for nausea. simvastatin (ZOCOR) 40 mg, Nightly sodium chloride (OCEAN) 0.65 % nasal spray 2 sprays, each nostril, Every 2 hours Impression: Nutrition Status: The patient is at risk for malnutrition, but does not meet the ASPEN criteria formalnutrition. The patient is under the care of Dr. Lamar and will receive CISplatin Weekly with Concurrent Radiation for management of his Stage IV Head and Neck cancer. The patient was referred to me by Dr. Curran. The patient is also receiving concurrent radiation from Dr. Curran. The patient's current weight is 261#, which is up 34# over the past 3 months; up 23# in the past month. Protein is low today at 6.3. RDN met with the patient today for a follow up nutrition consultation. He reports a good appetite and no side effects of treatment. He is single and does his own cooking. He uses olive oil in cooking. He likes honey but has not been using it as suggested yet. He likes to eat, beef, pork, eggs, cheese, peas, veggies and ice cream. No milk or yogurt. Intervention: Patient with very good appetite: -Encouraged aim to keep weight stable during the course of treatment and gain no more than 2# per week. -Encouraged the patient to consume high protein foods and fluids in small, frequent meals daily Reviewed pt - protein goals -Suggested protein with each meal; reviewed sources Patient is taking radiation therapy to the head and neck: Encouraged the use of honey, 1 TBSP, at least three times a day, before all meals, and peach juice as needed to reduce oral side effects of radiation therapy. Patient will be taking Cisplatin ( but is on Eliquis): Suggested take 1 Tablespoon of olive oil in the diet daily, as studies show clinical benefit with use of these while taking a course of Cisplatin. Monitoring: Appetite / PO intake Side effects of Treatment Wt changes The patient was encouraged to contact me with any nutritional questions or concerns. Provided contact information. RDN will follow pt weekly during course of treatment. 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 room 11450 on 04/10. First swab 04/11, 2nd swab 04/17 04/11 swab negative 04/1704/11/2025 04/11/2025 documented as of this encounter Care Teams Central Office Maintainer Relationship Specialty Start Date End Date Mauricio De La Rosa MD [address] [place] [address] PCP - General Internal Medicine 11/14/20 Geraldine Martin LCSW Real Estate Professional 03/04/25 Yelena Lacy, ERAN Nurse Navigator 03/05/25 Shlomo Villalba MD [address] [facility] [address] [place] [address] Medical Oncologist/Nursing Associate Medical Oncology 05/15/25 Kenneth Curran MD [address] [place] [address] Radiation Oncologist Radiation Oncology 05/15/25 Odalys Stiles MD [address] [facility] OT[facility], [address] [place] [address] Surgeon Otolaryngology 05/15/25 Austin Apple MD [address] [place] [address] Consulting Physician Neurosurgery 05/30/25 documented as of this encounter
[2025-06-24 21:07] VITALS: BP 155/91; PULSE 104; RESP 20; TEMP 36.8; O2SAT 97
--- NOTE | 2025-06-24 22:46 | ED_ITS ---
HPI - Extremity Problem General Chief complaint: Extremity Problem,Nontraumatic Stated complaint: left leg wound Time Seen by Provider: 06/24/25 22:18 History of Present Illness HPI Narrative: 80-year-old male presenting for evaluation of a ?cold spot ?on his left lower extremity. He states that he was undergoing his chemotherapy today and had his legs crossed for prolonged period of time. Afterwards he noticed a area where his left lower extremity had some skin changes or he felt cold and clammy spot. This was in the area where his right foot was crossed over. No traumatic injuries. No skin breakdown. 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 Patient has no history of DVT or PE. No unilateral leg swelling. No calf asymmetry. Ambulatory without any difficulty. No pain. Symptoms resolving and no longer having any area of skin discoloration or temperature changes on my assessment. Related Data Home Medications ?Medication ?Instructions ?Recorded ?Confirmed ?Last Taken ?Type cyanocobalamin (vitamin B-12) 1,000 mcg PO DAILY 11/1403/25/21 11/13/20 History 1,000 mcg tablet folic acid 800 mcg tablet 0.8 mg PO DAILY 11/14/2011/13/20 History levothyroxine 150 mcg tablet 150 mcg PO DAILY 11/14/20 03/25/21 11/13/20 History (Synthroid) simvastatin 40 mg tablet 40 mg PO DAILY 11/14/2003/0611/13/20 History cholecalciferol (vitamin D3) 100 100 mcg PO DAILY 12/0503/25/21 Unknown History mcg (4,000 unit) capsule (Vitamin D3) metoprolol tartrate 25 mg tablet 150 mg PO Q12HR 01/0103/25/21 03/25/21 History 0530 Allergies Allergy/AdvReac Type Severity Reaction Status Date / Time No Known Allergies Allergy Verified 06/24/25 21:01 [facility] Past Medical History Medical History (Updated 06/25/25 @ 00:00 by Background Linda) Mitral valve regurgitation mod to severe BMI 36.0-36.9,adult Colon cancer screening Afib Gastric ulcer NSAID long-term use Acute blood loss anemia TBI (traumatic brain injury) Residual left-sided weakness. GI bleeding Hypothyroid Hypertension Surgical History Surgical History History of tonsillectomy and adenoidectomy H/O colonoscopy with polypectomy History of appendectomy Family History Family History Father Heart disease Mother Diabetes mellitus Social History Social History Social History: The patient lives home alone. He is and has no children. He desires to have his sister is a durable power attorney law clerk. He lives approximately 6 miles from her house. 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 the patient desires to be a full code. Years smoked: 30 Smoking status: Former smoker Tobacco type: cigarettes Smoking end date: 11/08/02 Alcohol intake: current Drinks per week: 10 Alcohol use details: BEER Substance use: never Living arrangements: alone Gender identity (if verbalized by the patient): Male Sexual Orientation (if Verbalized by the Patient): Straight or Heterosexual Spiritual care concerns: No Exam Narrative: GENERAL: [Well-appearing, well-nourished, and in no acute distress.] HEAD: [Normocephalic, atraumatic.] EYES: Right pupil reactive to light, left eye enucleated with postsurgical changes around the face and head. ENT: Nares clear, no rhinorrhea or epistaxis. Mucous membranes moist. NECK: Supple. CHEST: [Clear to auscultation. No respiratory distress.] HEART: [Regular rate and rhythm]. No murmur heard. [Normal peripheral pulses.] ABDOMEN: [Soft, nondistended], [nontender], [No rigidity or guarding] EXTREMITIES: Normal range of motion. 1+ peripheral edema, 2+ pulses, ambulatory. No temperature differences between the legs, no skin breakdown or lesions, cellulitis or redness. SKIN: Warm, dry, no rash. NEURO: [No focal deficits]. Alert and oriented [x3.] PSYCH: [Normal mood and affect.] Course Vital Signs Vital signs: Vital Signs Temperature 36.8 C 06/24/25 21:07 Pulse Rate 104 H 06/24/25 21:07 Respiratory Rate 20 06/24/25 21:07 Blood Pressure 155/91 H 06/24/25 21:07 Pulse Oximetry 97 06/24/25 21:07 Oxygen Delivery Room Air 06/24/25 21:07 Temperature 36.8 C 06/24/25 21:07 Pulse Rate 95 06/24/25 22:56 Respiratory Rate 15 06/24/25 22:56 Blood Pressure 163/102 H 06/24/25 22:56 Pulse Oximetry 97 06/24/25 22:56 Oxygen Delivery Room Air 06/24/25 21:07 MDM - Extremity (Nontraumatic) MDM Narrative Medical decision making narrative: 80-year-old male presenting for evaluation of a ?cold spot ?on his left lower extremity. He states that he was undergoing his chemotherapy today and had his legs crossed for prolonged period of time. Afterwards he noticed a area where his left lower extremity had some skin changes or he felt cold and clammy spot. This was in the area where his right foot was crossed over. No traumatic injuries. No skin breakdown. 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 Patient has no history of DVT or PE. No unilateral leg swelling. No calf asymmetry. Ambulatory without any difficulty. No pain. Symptoms resolving and no longer having any area of skin discoloration or temperature changes on my assessment. Patient expressing desire to go home and just want to make sure he was okay. No red flag signs or symptoms on his examination that make me concerned for needing urgent or emergent workup at this time and here he has a PCP appointment tomorrow morning over at his normal care center. Normal range of motion. 1+ peripheral edema, 2+ pulses, ambulatory. No temperature differences between the legs, no skin breakdown or lesions, cellulitis or redness. No evidence of DVT or superficial thrombosis. Hemodynamically stable without any other complaints. Benign exam and can be safely discharged home at this time. Family members comfortable with the plan. Discharge Plan Discharge Clinical Impression: Edema, peripheral, History of cancer Patient Disposition: Home Condition: Stable Instructions: Antibiotic Form Additional Instructions: Your exam is reassuring and does not show any evidence of DVT or thrombosis, there is some edema in the legs which can also contribute to her symptoms but no signs of any urgent or emergent concerns today. Follow-up with your doctor tomorrow morning and return with any emergencies. Patient Language: Iraqi Prescriptions: No Action metoprolol tartrate 25 mg tablet 150 mg PO Q12HR Vitamin D3 100 mcg (4,000 unit) capsule 100 mcg PO DAILY pantoprazole [Protonix] 40 mg tablet,delayed release (DR/EC) 40 mg PO BID Qty: 60 5RF cyanocobalamin (vitamin B-12) 1,000 mcg Tablet 1,000 mcg PO DAILY simvastatin 40 mg Tablet 40 mg PO DAILY levothyroxine [Synthroid] 150 mcg Tablet 150 mcg PO DAILY folic acid 800 mcg Tablet 0.8 mg PO DAILY Follow-up/Referrals: [facility] [Primary Care Provider, Medical] Time of Disposition: 22:44
--- OUTSIDE RECORDS SUMMARY | 2025-06-24 22:48 | XMS_ITS | Encounter Summary ---
Author Organization [facility] Healthcare Address [address] [place] [address] Care Team Providers Care Administrative Project Coordinator Name Role Phone Mauricio De La Rosa MD Primary Care Provider [phone] Geraldine Martin FUR VAULT ATTENDANT Unavailable Unavaila Yelena Tovar RN Unavailable Unav ailable Shlomo Villalba MD Unavailable [phone] Kenneth Curran MD Unavailable [phone] Odalys Stiles MD Unavailable [phone] Austin Apple MD Unavailable [phone] Reason for Visit * Reason Comments OTV Encounter Details Date Type Department Care Team (Late st Contact Info) Description 06/21/[address] [facility] Medical Office Building 2 Radiation Oncology [address] [place] [id number] Jayden Coffey MD PhD [address] [facility] [address] [place] [address] Social History Tobacco Use Types Packs/Day Years Used Date Smoking Tobacco: Former Cigarettes 0.1 35 1 968 - 2003 Passive Smoke Exposure: Past Smokeless Tobacco: Never Alcohol Use Standard Drinks/Week Comments Yes 2 (1 standard drink = 0.6 oz pur e alcohol) [facility] Utilities Answer Date Recorded In the past 12 months has [employer] electric, gas, oil, or water company threatened [...] often do you attend chur ch or amish services? 1 to 4 times per year [...] any time in the past 12 m [facility], were you homeless or living in [...] Sign Reading Time Taken Comments Blood Pressure 152/112 06/21/2025 9:15 AM CDT MD Coffey notified Pulse 82 06/21/2025 9:15 AM CDT Temperature - - Respiratory Rate - - Oxygen Saturation 99% 06/21/2025 9:1 5 AM CDT Inhaled Oxygen Concentration - - Weight 122.7 kg (270 lb 6.4 oz) 06/21/2025 9:15 AM CDT Height - - Body Mass Index 40.05 06/17/2025 9:30 AM CDT documented in this encounter Functional Status documented as of this encounter Plan of Treatment Not on file documented as of this encounter Visit Diagnoses Not on filedocumented in this encounter Additional Health Concerns Infection Onset Date Last Indicated Resolved Time Lynsey auris, Exposure Comment:Exposed in [facility] room 38123 on 04/10. First swab 04/11, 2nd swab 04/17 04/11 swab negative 04/1704/11/2025 04/11/2025 documented as of this encounter Care Teams Administrative Project Coordinator Relationship Specialty Start Date End Date Mauricio De La Rosa MD [address] [place] [address] PCP - General Internal Medicine 11/14/20 Geraldine Martin LCSW Director Furniture 03/04/25 Yelena Lacy, ERAN Nurse Navigator 03/05/25 Shlomo Villalba MD [address] [facility] [address] [place] [address] Medical Oncologist/Deicer Inspector Pneumatic Medical Oncology 05/15/25 Kenneth Curran MD [facility] [address] Radiation Oncologist Radiation Oncology 05/15/25 Odalys Stiles MD [address] [facility], [address] [place] [id number] Surgeon Otolaryngology 05/15/25 Austin Apple MD [address] [facility] [address] [place] [address] Consulting Physician Neurosurgery 05/30/25 documented as of this encounter
--- OUTSIDE RECORDS SUMMARY | 2025-06-24 22:49 | XMS_ITS | Encounter Summary ---
Author Organization [facility] Healthcare Address [address] [place] [address] Care Team Providers Care Handy Worker Name Role Phone Mauricio De La Rosa MD Primary Care Provider [phone] Geraldine Martin LCSW Unavailable Unavaila Yelena Tovar RN Unavailable Unav ailable Shlomo Villalba MD Unavailable [phone] Kenneth Curran MD Unavailable [phone] Odalys Stiles MD Unavailable [phone] Austin Apple MD Unavailable [phone] Encounter Details Date Type Department Care Team (Late st Contact Info) Description 06/24/2025 Orders Only RAD ONC TREATMENTS Miscellaneous, Not In File Social History Tobacco Use Types Packs/Day Years Used Date Smoking Tobacco: Former Cigarettes 0.1 35 1 968 - 2003 Passive Smoke Exposure: Past Smokeless Tobacco: Never Alcohol Use Standard Drinks/Week Comments Yes 2 (1 standard drink = 0.6 oz pur e alcohol) [facility] Utilities Answer Date Recorded In the past 12 months has [employer] electric, gas, oil, or water company threatened [...] week 03/05/2025 How often do you attend [facility] or methodist services? 1 to 4 times per year [...] any time in the past 12 m [facility], were you homeless or living in a detention (including now)? No 03/05/2025 AUDIT-C Answer Date [...] on file documented as of this encounter Plan of Treatment Not on file documented as of this encounter Procedures Procedure Name Priority Date/Time Associated Diagnosis Comments RAD ONC ARIA SESSION SUMMARY 06/24/2025 8:50 AM CDT documented in this encounter Results * RAD ONC ARIA SESSION SUMMARY (06/24/2025 8:50 AM CDT) Course Name [id number] ARIA Course Plan Date 05/30/2025 11:58 AM ARIA Elapsed Days 7 ARIA Treatment Start Date 06/17/2025 ARIA Treatment Site LT HEAD_NECK ARIA Dose Given To Date (cGy) 1,200 ARIA Session Dosage Given (cGy) 200 ARIA Plan ID LT HEAD_NECK ARIA Fractions Treated 6 ARIA Prescribed Dose Per Fraction (cGy) 200 ARIA Prescribed Total Dose (cGy) 6,600 ARIA 06/24/2025 8:50 AM CDT us Not In File Miscellaneous RADIATION ONCOLOGY ORD ERABLES Final Result ARIA documented in this encounter Visit Diagnoses Not on filedocumented in this encounter Additional Health Concerns Infection Onset Date Last Indicated Resolved Time Lynsey auris, Exposure Comment:Exposed in [facility] [address]143 on 04/10. First swab 04/11, 2nd swab 04/17 04/11 swab negative 04/1704/11/2025 04/11/2025 documented as of this encounter Care Teams Handy Worker Relationship Specialty Start Date End Date Mauricio De La Rosa MD [address] [place] [address] PCP - General Internal Medicine 11/14/20 Geraldine Martin LCSW Rice Farmworker 03/04/25 Yelena Lacy, ERAN Nurse Navigator 03/05/25 Shlomo Villalba MD [address] [facility] [address] [place] [address] Medical Oncologist/[employer] Medical Oncology 05/15/25 Kenneth Curran MD [address] [place] [id number] Radiation Oncologist Radiation Oncology 05/15/25 Odalys Stiles MD [address] [facility], [address] [place] [id number] Surgeon Otolaryngology 05/15/25 Austin Apple MD [address] [place] [address] Consulting Physician Neurosurgery 05/30/25 documented as of this encounter
--- OUTSIDE RECORDS SUMMARY | 2025-06-24 22:49 | XMS_ITS ---
Author Organization [facility] [address] Address [address] [place] [address] Care Team Providers Care Fountain Dispenser Name Role Phone Mauricio De La Rosa MD Primary Care Provider [phone] Geraldine Martin LCSW Unavailable Unavaila Yelena Tovar RN Unavailable Unav ailable Shlomo Villalba MD Unavailable Kenneth Curran MD Unavailable [phone] Odalys Stiles MD Unavailable [phone] Austin Apple MD Unavailable [phone] Active Problems Problem Noted Date Diagnosed Date Aftercare following surgery for neoplasm 025 Malignant neoplasm of accessory sinus, unspecifi ed 03/13/2025 Squamous cell carcinoma of ethmoid sinus 025 Cancer Staging:Pathologic stage from 05/30/2025:Stage IVB(pT4b, pN0, cM0) - Signed by Kenneth Curran MD on 05/30/2025 Persistent atrial fibrillation 12/24/2020 Mitral valve insufficiency 12/24/2020 Essential hypertension 12/24/2020 Dyslipidemia 12/24/2020 GI bleed due to NSAIDs 12/24/2020 Blood loss anemia 12/24/2020 Current Treatment and Therapy Plans CISplatin Weekly with Concurrent Radiation - Head and Neck* Plan Start Date: 06/03/2025 Plan Provider:Shlomo Villalba MD Linked Problems 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 Past Treatment and Therapy Plans No past plan information found. 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
--- OUTSIDE RECORDS SUMMARY | 2025-06-24 22:49 | XMS_ITS | Clinical Summary ---
Author Organization [facility] [place] [address] Address [address] [place] [address] Care Team Providers Care Telephone Services Sales Representative Name Role Phone Mauricio De La Rosa MD Primary Care Provider [phone] Geraldine Martin LCSW Unavailable Unavaila Yelena Tovar RN Unavailable Unav ailable OppeShlomo stevens MD Unavailable [phone] Kenneth Curran MD Unavailable [phone] Odalys Stiles MD Unavailable [phone] Austin Apple MD Unavailable Allergies Active Allergy Reactions Criticality Noted Date Comments Nsaids (Non-Steroidal Anti-Inflammatory Drug) Other (See comments) 12/26/2020 ulcer Medications cyanocobalamin (Vitamin B-12) 1,000 mcg tabletIndicatio ns:Prevention of Vitamin B12 Deficiency Take 1 tablet (1,000 mcg total) by mouth nightly Active folic acid 0.8 mg capsuleIndicati ons:Folate Deficiency Take 800 mcg by mouth nightly Active simvastatin (ZOCOR) 20 mg tabletIndicatio ns:hyperlipidem ia Take 2 tablets (40 mg total) by mouth nightly Active levothyroxine (SYNTHROID) 150 mcg tabletIndicatio ns:hypothyroidi sm Take 125 mcg by mouth nightly Active metoprolol (LOPRESSOR) 100 mg tabletIndicatio ns:Persistent atrial fibrillation (HCC) Take 1.5 tablets (150 mg total) by mouth 2 (two) times a day 90 tablet 05/21/20 21 Active apixaban (ELIQUIS) 5 mg tabletIndicatio ns:atrial fibrillation Take 1 tablet (5 mg total) by mouth 2 (two) times a day 60 tablet 11 05/21/20 21 Active acetaminophen (TYLENOL) 325 mg tablet Take 2 tablets (650 mg total) by mouth every 4 (four) hours 04/12/20 Active Additional Information Patient taking differently:650 mg oralAs needed, Reported on 06/24/2025 sodium chloride (OCEAN) 0.65 % nasal spray Administer 2 sprays into each nostril every 2 (two) hours 04/12/20 25 2025 Active Additional Information Patient taking differently:2 spray each nostrilAs needed, Reported on 06/24/2025 prochlorperazin e (Compazine) 10 mg tabletIndicatio ns: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 30 tablet 3 06/16/20 25 Active cholecalciferol (VITAMIN D-3) 2000 unit capsuleIndicati ons:Vitamin D Deficiency Take 1 capsule (2,000 Units total) by mouth nightly 2024 Discontin ued(Patie nt Reported) oxyCODONE (ROXICODONE) 5 mg immediate release tabletIndicatio ns:Pain Take 1 tablet (5 mg total) by mouth every 4 (four) hours as needed for pain 30 tablet 04/12/20 25 2024 Discontin ued(Patie nt Reported) amoxicillin-cla vulanate (AUGMENTIN) 875-125 mg per tablet Take 1 tablet (875 mg of amoxicillin total) by mouth 2 (two) times a day for 7 days 14 tablet 05/07/20 25 2024 Additional Information Patient not taking.Reported on 06/24/2025 dexAMETHasone (DECADRON) 4 mg tabletIndicatio ns: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) 06/24/2025 9:30 AM CDT Office Visit [facility] [address] [place] [phone] Shlomo Villalba MD 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) 06/24/2025 9:00 AM CDT Treatment [facility] Office Building 2 Radiation Oncology [address] [place] [address] 06/24/2025 8:30 AM CDT Lab [facility] [place] at [address] [address] 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) 06/24/2025 Orders Only RAD ONC TREATMENTS Miscellaneous, Not In File 06/21/2025 9:00 AM CDT Treatment [facility] Building 2 Radiation Oncology [address] [place] [address] 06/21/2025 OTV [facility] Office Building 2 Radiation Oncology [address] [place] [address] Jayden Coffey MD PhD 06/21/2025 Orders Only RAD ONC TREATMENTS Miscellaneous, Not In File 06/20/2025 9:00 AM CDT Treatment [facility] Building 2 Radiation Oncology [address] [place] [phone] 06/20/2025 Orders Only RAD ONC TREATMENTS Miscellaneous, Not In File 06/19/2025 9:00 AM CDT Treatment [facility] Building 2 Radiation Oncology [address] [place] [address] 06/19/2025 Telephone [facility] [address] [place] [address] [address] [place] [address] Xuan Powell, RN 06/19/2025 Orders Only RAD ONC TREATMENTS Miscellaneous, Not In File 06/18/2025 9:30 AM CDT Infusion [facility] at [address] [place] [address] 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) 06/18/2025 9:00 AM CDT Treatment [facility] Building 2 Radiation Oncology [address] [place] [address] 06/18/2025 Telephone [facility] [address] [place] [address] [address] [place] [address] Xuan Powell RN 06/18/2025 Orders Only RAD ONC TREATMENTS Miscellaneous, Not In File 06/17/2025 12:00 PM CDT Clinical Support [facility] Medical [facility] Building 2 Radiation Oncology [address] [place] [address] Malignant neoplasm of accessory sinus, unspecified (HCC) (Primary Dx); 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) 06/17/2025 9:30 AM CDT Infusion [facility] at [address] [place] [address] 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) 06/17/2025 9:05 AM CDT Treatment [facility] Building 2 Radiation Oncology [address] [place] [address] Kenneth Curran MD 06/17/2025 9:00 AM CDT Treatment [facility] Building 2 Radiation Oncology [address] [place] [address] Kenneth Curran MD 06/17/2025 8:30 AM CDT Lab [address] [address] 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) 06/17/2025 Orders Only [facility] [address] [place] [address] [address] [place] [phone] Xuan Powell, ERAN 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) 06/17/2025 Orders Only RAD ONC TREATMENTS Miscellaneous, Not In File 06/17/2025 Orders Only [facility] [address] [place] [phone] Xuan Powell, ERAN 06/15/2025 Orders Only [facility] [address] [place] [phone] Shlomo Villalba MD 06/14/2025 7:45 PM CDT Treatment [facility] Building 2 Radiation Oncology [address] [place] [address] 06/12/2025 Telephone [facility] [address] [place] [phone] Yelena Lacy, ERAN Navigation treatment start check-in 06/04/2025 Orders Only [facility] [address] [place] [phone] Xuan Powell, RN 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) 06/03/2025 3:00 PM CDT Office [facility] [address] [place] [phone] Shlomo Villalba MD 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) 05/30/2025 11:30 AM CDT Treatment [facility] Building 2 Radiation Oncology [address] [place] [address] Kenneth Curran MD 05/30/2025 10:00 AM CDT Consult [facility] Building 2 Radiation Oncology [address] [place] [address] Kenneth Curran MD 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) 05/15/2025 Documentation [facility] [address] [phone] Yelena Lacy RN 05/15/2025 Orders Only [facility] Building 2 Radiation Oncology [address] [place] [address] Kenneth Curran MD 05/13/2025 Telephone [facility] Building 2 Radiation Oncology [address] [place] [address] Dora Wolf MA 05/13/2025 Telephone [facility] [address] [place] [phone] Yelena Lacy RN Navigation adjuvant referral follow-up 05/07/2025 Orders Only [facility] Otolaryngology Head-Neck Division [address] [place] [phone] Odalys Stiles MD 05/02/2025 9:00 AM CDT Office Visit [facility] Medicine Otolaryngology Head-Neck Division [address] [place] [phone] Odalys Stiles MD 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); Malignant neoplasm of accessory sinus, unspecified (HCC) 05/02/2025 Telephone [facility] 2 Radiation Oncology [address] [place] [address] [facility] 04/29/2025 3:59 PM CDT - 04/29/2025 7:28 PM CDT Emergency [facility] Emergency Department [address] [place] [phone] Dehiscence of operative wound, initial encounter (Primary Dx); Skin wound from surgical incision Discharge Disposition: Discharge to home or self care 04/29/2025 Telephone [facility] Otolaryngology Head-Neck Division [address] [place] [address] 5 [place] [address] Varsha Leal RN 04/29/2025 Orders Only [facility] Otolaryngology Head-Neck Division [address] [place] [phone] Odalys Stiles MD 04/26/2025 Telephone [facility] Otolaryngology Head-Neck Division [address] [place] [phone] Varsha Leal RN 04/25/2025 Telephone Otolaryngology Robbie Olivera MD 04/23/2025 3:10 PM CDT Office Visit [facility] Neurosurgery [address] [place] [address] 1, [address] [place] [phone] Austin Apple MD 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); Meningioma (HCC) 04/23/2025 Orders Only [facility] Otolaryngology Head-Neck Division [address] [place] [phone] Arcadio Roberts MD 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) 04/23/2025 Telephone [facility] [address] [place] [phone] Yelena Lacy, ERAN Navigation follow up 04/18/2025 9:20 AM CDT Office Visit [facility] Otolaryngology Head-Neck Division [address] [place] [phone] Odalys Stiles MD 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); Malignant neoplasm of accessory sinus, unspecified (HCC) 04/15/2025 Telephone [facility] [address] [place] [phone] Yelena Lacy, ERAN Navigation post-op discharge call 04/05/2025 7:30 AM CDT - 04/05/2025 8:15 PM CDT Surgery [facility] Operating Room 1 [place] [address] Odalys Stiles MD Combo Pipkorn/Ambika-FREE FLAP LEFT THIGH 04/05/2025 7:30 AM CDT Anesthesia Event [facility] Operating Room [address] [place] [address] Landon Craft MD Powers, Julia Jeanette, NP 04/05/2025 5:13 AM CDT - 04/12/2025 1:21 PM CDT Hospital Encounter [address] [phone] Odalys Stiles MD Aftercare following surgery for neoplasm (Primary Dx); 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); Cancer of head and neck (HCC); Malignant neoplasm of accessory sinus, unspecified (HCC) Discharge Disposition: Discharge to home or self care 04/04/2025 Telephone [facility] [address] [facility] 4th [place] [address] Yelena Lacy RN Navigation pre-surgical check in 04/02/2025 12:15 PM CDT - 04/02/2025 11:59 PM CDT Hospital Encounter [facility] [address] [place] [address] Austin Apple MD Malignant neoplasm of accessory sinus, unspecified (HCC) Discharge Disposition: Discharge to home or self care 04/02/2025 12:14 PM CDT - 04/02/2025 11:59 PM CDT Hospital Encounter [facility] [address] [place] [address] Malignant neoplasm of accessory sinus, unspecified (HCC) Discharge Disposition: Discharge to home or self care 03/27/2025 2:20 PM CDT Office Visit [facility] Medicine Neurosurgery [address] [facility] Floor 1, [address] [place] [phone] Austin Apple MD 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); Malignant neoplasm of accessory sinus, unspecified (HCC) 03/27/2025 Telephone [facility] Neurosurgery [address] [facility] Floor 1, [address] [place] [phone] Austin Apple MD 03/27/2025 Orders Only [facility] Neurosurgery [address] [facility] Floor 1, [address] [place] [phone] Austin Apple MD Malignant neoplasm of accessory sinus, unspecified (HCC) (Primary Dx) 03/25/2025 3:00 PM CDT Pre-Admission Testing [facility] Center for Preoperative Assessment and Planning [facility] ([facility]) [address] [place] [address] Preoperative testing (Primary Dx); 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) from Last 3 Months Surgical History Surgery Date Site/Laterality Comments APPENDECTOMY 09/05/1968 - 09/04/1969 TONSILLECTOMY 09/05/1952 - 09/04/1953 ADENOIDECTOMY 09/05/1952 - 09/04/1953 LYMPHADENECTOMY 09/05/2022 - 09/04/2023 MOHS SURGERY 09/05/2022 - 09/04/2023 on face MOHS SURGERY 09/05/2023 - 09/04/2024 on the nose CATARACT EXTRACTION W/ INTRAOCULAR LENS IMPLANT Bilateral MAXILLECTOMY WITH ORBITAL EXENTERATION 04/05/2025 Mouth/Left Procedure: MAXILLECTOMY WITH ORBITAL EXENTERATION - CRANIOFACIAL RESECTION; Surgeon: Odalys Stiles MD; Location: [facility] OR POD 5; Service: Otolaryngology; Laterality: Left; Medical devices from this surgery are in the Medical Devices section. NECK DISSECTION 04/05/2025 Neck/Left Procedure: DISSECTION NECK.; Surgeon: Odalys Stiles MD; Location: [facility] OR POD 5; Service: Otolaryngology; Laterality: Left; Medical devices from this surgery are in the Medical Devices section. PAROTIDECTOMY 04/05/2025 Neck/Left Procedure: PAROTIDECTOMY.; Surgeon: Odalys Stiles MD; Location: [facility] OR POD 5; Service: Otolaryngology; Laterality: Left; Medical devices from this surgery are in the Medical Devices section. Medical History Medical History Date Comments A-fib (HCC) Hypertension Stomach ulcer Hyperlipidemia Thyroid disease Cancer (HCC) HL (hearing loss) High blood pressure Family History Medical History Relation Name Comments Cancer Father Heart disease Father Stroke Father Esophageal cancer Maternal Grandfather Hernia Mother Relation Name Status Comments Father (Age 81) Maternal Grandfather Mother (Age 97) Social History Tobacco Use Types Packs/Day Years Used Date Smoking Tobacco: Former Cigarettes 0.1 35 1 968 - 2002 Passive Smoke Exposure: Past Smokeless Tobacco: Never Tobacco Cessation:Counseling Given: Not Answered Alcohol Use Standard Drinks/Week Comments Yes 2 (1 standard drink = 0.6 oz pur e alcohol) [facility] Utilities Answer Date Recorded In the [...] often do you attend chur ch or evangelical services? 1 to 4 times per year [...] any time in the past 12 m [facility], were you homeless or living in a care home (including now)? No 03/05/2025 AUDIT-C Answer Date [...] on file Sexual Orientation Not on file Obstetrics History Last Filed Vital Signs Vital Sign Reading [...] 025 9:45 AM CDT with shoes Height 175 cm (5' 8.9) 06/17/2025 9:30 AM CDT Body Mass Index 38.66 06/17/2025 9:30 AM CDT Plan of Treatment Health Maintenance Due Date Last Done Comments Hepatitis C Screening 1945 Hepatitis B Screening 1965 Zoster Vaccine (1 of 2) 1966 Abdominal Aortic Aneurysm (A AA) Screen 2012 Well Visit 65+ 2012 Covid-19 Vaccine (4 - 2024-2 6 season) 2025 06/06/2021, 11/06/2020, 10/16/2020 Influenza Vaccine (#1) 2025 , 06/29/2023, 06/14/2022, Additional history exists Depression Screening 03/05/2026 03/05/2025 Fall Risk Assessment 05/30/2026 05/30/2025, 04/12/20 DTaP/Tdap/Td Vaccine (3 - Td or Tdap) 09/27/2029 09/27/2019, 11/13/2007 Pneumococcal vaccine 65+ Completed 016, 07/18/2014, 10/10/2003 Medical Devices Implanted Type Area Engraving Patternmaker Device Identifier Shelf Expiration Date Model / Serial / Lot Betterments Telepath Allian Cleaners Anastomotic Microvascular [place] [employer] 4.0mm [id number] - [id number] Implanted:Qty: 1 on 04/05/2025 by Austin Apple MD at [facility] Other - see comments Left: Neck [employer] Telepath Allian [id number] 05/02/2029 [id number] / / [id number]- [id number] [employer] Probe Doppler 17.4cm Standard Cuff Implantable 20mhz Latex Free Sterile Microvascular Anastomoses Maite [id number] - [id number] Implanted:Qty: 1 on 04/05/2025 by Austin Apple MD at [facility] Other - see comments Left: Neck [employer] [id number] 12/04/2027 [id number] / / [id number] Description:04/12/2025 Doppler wire cut and secured with Tegaderm prior to discharge. To be removed at follow-up by the attending. 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) RAD ONC ARIA SESSION SUMMARY 06/21/2025 9:04 AM CDT RAD ONC ARIA SESSION SUMMARY 06/20/2025 9:15 AM CDT RAD ONC ARIA SESSION SUMMARY 06/19/2025 9:02 AM CDT RAD ONC ARIA SESSION SUMMARY 06/18/2025 9:12 AM CDT RAD ONC ARIA SESSION SUMMARY 06/17/2025 9:17 AM CDT EGFR STAT 06/17/2025 8:32 AM CDT 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) DIFFERENTIAL AUTO Routine 06/17/2025 8:3 2 AM CDT 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) CBC WITH AUTO DIFFERENTIAL Routine 06/17/2025 8:32 AM CDT 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) COMPREHENSIVE METABOLIC PANEL STAT 06/17/2025 8:32 AM CDT 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) XR CHEST PA LATERAL 2 VIEWS ED 04/29/2025 1:34 PM CDT POCT LACTATE - DEVICE Routine 04/29/2025 12:44 PM CDT EGFR STAT 04/29/2025 12:38 PM CDT DIFFERENTIAL AUTO STAT 04/29/2025 12:38 PM CDT COMPREHENSIVE METABOLIC PANEL STAT 04/29/2025 12:38 PM CDT CBC WITH AUTO DIFFERENTIAL STAT 04/29/2025 12:38 PM CDT DIFFERENTIAL AUTO Routine 04/11/2025 8:3 8 PM CDT CBC WITH AUTO DIFFERENTIAL Routine 04/11/2025 8:38 PM CDT INFECTION PREVENTION GALLITO AURIS PCR, SURVEILLANCE Routine 04/11/2025 12:29 PM CDT EGFR Timed 04/10/2025 10:58 PM CDT DIFFERENTIAL AUTO Routine 04/10/2025 10:58 PM CDT CBC WITH AUTO DIFFERENTIAL Routine 04/10/2025 10:58 PM CDT BASIC METABOLIC PANEL Timed 04/10/2025 10:58 PM CDT DIFFERENTIAL AUTO Routine 04/09/2025 10:24 PM CDT CBC WITH AUTO DIFFERENTIAL Routine 04/09/2025 10:24 PM CDT POCT GLUCOSE DEVICE Routine 04/09/2025 9 :09 AM CDT CRITICAL RESULT CALLBACK CHEMISTRY STAT 04/09/2025 9:07 AM CDT CSF PROTEIN STAT 04/09/2025 9:07 AM CDT GLUCOSE, CSF STAT 04/09/2025 9:07 AM CDT CELL COUNT W REFLEX DIFFERENTIAL, CSF STAT 04/09/2025 9:07 AM CDT BACTERIAL CULTURE AND GRAM STAIN, CSF STAT 04/09/2025 9:07 AM CDT PHOSPHORUS Timed 04/08/2025 8:46 PM CDT EGFR Timed 04/08/2025 8:46 PM CDT DIFFERENTIAL AUTO Routine 04/08/2025 8:4 6 PM CDT CBC WITH AUTO DIFFERENTIAL Routine 04/08/2025 8:46 PM CDT BASIC METABOLIC PANEL Timed 04/08/2025 8:46 PM CDT DIFFERENTIAL AUTO Routine 04/08/2025 3:4 4 AM CDT CBC WITH AUTO DIFFERENTIAL Routine 04/08/2025 3:44 AM CDT MAGNESIUM Routine 04/07/2025 8:01 PM CDT EGFR Routine 04/07/2025 5:56 AM CDT DIFFERENTIAL AUTO Routine 04/07/2025 5:5 6 AM CDT BASIC METABOLIC PANEL Routine 04/07/2025 5:56 AM CDT CBC WITH AUTO DIFFERENTIAL Routine 04/07/2025 5:56 AM CDT EGFR Timed 04/06/2025 7:26 PM CDT MAGNESIUM Timed 04/06/2025 7:26 PM CDT COMPREHENSIVE METABOLIC PANEL Timed 04/06/2025 7:26 PM CDT PHOSPHORUS Timed 04/06/2025 7:[address] HEAD STEALTH WO CONTRAST Timed 04/06/2025 6:07 AM CDT EGFR Routine 04/06/2025 5:24 AM CDT DIFFERENTIAL AUTO Routine 04/06/2025 5:2 4 AM CDT BASIC METABOLIC PANEL Routine 04/06/2025 5:24 AM CDT CBC WITH AUTO DIFFERENTIAL Routine 04/06/2025 5:24 AM CDT ECG 12-LEAD Routine 04/05/2025 6:[address] HEAD STEALTH WO CONTRAST ED Urgent/IP Urgent 04/05/2025 6:24 PM CDT EGFR STAT 04/05/2025 5:48 PM CDT DIFFERENTIAL AUTO STAT 04/05/2025 5:4 8 PM CDT PROTIME-INR STAT 04/05/2025 5:48 PM CDT APTT STAT 04/05/2025 5:48 PM CDT PHOSPHORUS STAT 04/05/2025 5:48 PM CDT MAGNESIUM STAT 04/05/2025 5:48 PM CDT COMPREHENSIVE METABOLIC PANEL STAT 04/05/2025 5:48 PM CDT CBC WITH AUTO DIFFERENTIAL STAT 04/05/2025 5:48 PM CDT POCT GLUCOSE DEVICE Routine 04/05/2025 5 :43 PM CDT POC BLOOD GAS AND CHEMISTRIES, ARTERIAL Routine 04/05/2025 3:46 PM CDT POC BLOOD GAS AND CHEMISTRIES, ARTERIAL Routine 04/05/2025 12:29 PM CDT AEROBIC AND ANAEROBIC CULTURE AND GRAM STAIN Routine 04/05/2025 11:03 AM CDT SURGICAL PATHOLOGY Routine 04/05/2025 9: 31 AM CDT 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 Apple and whatever they put in original case- DMF 03/28@1039- Case msg sent to schedulers for individual ctc- DMF 03/27@1514- Per [place] via case msg - Can you please take this case down so I can add Dr. Apple's part in- DMF 03/14@8828- Sent email to OR resource nurse and office staff about missing dpc. 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 Apple and whatever they put in original case- DMF 03/28@1039- Case msg sent to schedulers for individual ctc- DMF 03/27@1514- Per [place] via case msg - Can you please take this case down so I can add Dr. Apple's part in- DMF 03/14@1152- Sent email to [place] resource nurse and office staff about missing dpc. DMF PAROTIDECTOMY. 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 Apple and whatever they put in original case- DMF 03/28@1039- Case msg sent to schedulers for individual ctc- DMF 03/27@1514- Per [place] via case msg - Can you please take this case down so I can add Dr. Apple's part in- DMF 03/14@1152- Sent email to [place] resource nurse and office staff about missing dpc. DMF DISSECTION NECK. 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 Apple and whatever they put in original case- DMF 03/28@1039- Case msg sent to schedulers for individual ctc- DMF 03/27@1514- Per [place] via case msg - Can you please take this case down so I can add Dr. Apple's part in- DMF 03/14@1152- Sent email to [place] resource nurse and office staff about missing dpc. 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 Apple and whatever they put in original case- DMF 03/28@1039- Case msg sent to schedulers for individual ctc- DMF 03/27@1514- Per [place] via case msg - Can you please take this case down so I can add Dr. Apple's part in- DMF 03/14@1152- Sent email to [place] resource nurse and office staff about missing dpc. 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 Apple and whatever they put in original case- DMF 03/28@1039- Case msg sent to schedulers for individual ctc- DMF 03/27@1514- Per [place] via case msg - Can you please take this case down so I can add Dr. Apple's part in- DMF 03/14@1152- Sent email to [place] resource nurse and office staff about missing dpc. DMF EGFR STAT 04/05/2025 6:25 AM CDT APTT STAT 04/05/2025 6:25 AM CDT PROTIME-INR STAT 04/05/2025 6:25 AM CDT BASIC METABOLIC PANEL STAT 04/05/2025 6:25 AM CDT CBC WITHOUT DIFFERENTIAL STAT 04/05/2025 6:25 AM CDT B CHECK SAMPLE STAT 04/05/2025 6:25 AM CDT URINALYSIS AND REFLEX TO MICROSCOPIC Routine 04/05/2025 6:[address] HEAD STEALTH WO CONTRAST Schedule Routine, Read Routine (OP Routine) 04/02/2025 2:36 PM CDT Malignant neoplasm of accessory sinus, unspecified (HCC) MRI BRAIN STEALTH W WO CONTRAST Schedule Routine, Read Routine (OP Routine) 04/02/2025 1:30 PM CDT Malignant neoplasm of accessory sinus, unspecified (HCC) EGFR Routine 03/25/2025 4:44 PM CDT 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) DIFFERENTIAL AUTO Routine 03/25/2025 4:4 4 PM CDT 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) TYPE AND SCREEN 14 DAY Routine 03/25/2025 4:44 PM CDT Preoperative testing THYROID FUNCTION CASCADE Routine 03/25/2025 4:44 PM CDT 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 73 m2 Comment: [...] was last reviewed 2021. Testing performed by: [address] [address] Blood 06/24/2025 7:54 AM CDT 06/24/2025 8:01 AM CDT Shlomo Villalba MD LAB BLOOD ORDERABLES Final Result [facility] [address] [facility] Department [place] [address] * (ABNORMAL) Differential, auto (06/24/2025 7:54 AM CDT) Neutrophil abs 6.73(H) 1.50 - 6.50 K/cumm Comment:Testing performed by : [address] [address] Imm gran abs 0.05 0.00 - 0.10 K/cumm [facility] Comment:Testing performed by : [address] [address] Lymphocyte abs 1.74 0.80 - 3.30 K/cumm GR[facility]ELA Comment:Testing performed by : [address] [address] Monocyte abs 0.83(H) 0.20 - 0.80 K/cumm GR[facility]A Comment:Testing performed by : [address] [address] Eosinophil abs 0.03 0.00 - 0.50 K/cumm [facility] Comment:Testing performed by : [address] [address] Basophil abs 0.01 0.00 - 0.10 K/cumm [facility] Comment:Testing performed by : [address] [address] Neutrophil pct 71.8 % [facility] Comment: Interpretive Data Percent cell count reference ranges are not reported, since discordance with absolute values may lead to misinterpretation of CBC data. Current Interpretive Data was last revised on 2017. Testing performed by: [address] [address] Imm gran pct 0.5 % [facility] Comment: Interpretive Data Percent cell count reference ranges are not reported, since discordance with absolute values may lead to misinterpretation of CBC data. Current Interpretive Data was last revised on 2017. Testing performed by: [address] [address] Lymphocyte pct 18.5 % [facility] Comment: Interpretive Data Percent cell count reference ranges are not reported, since discordance with absolute values may lead to misinterpretation of CBC data. Current Interpretive Data was last revised on 2017. Testing performed by: [address] [address] Monocyte pct 8.8 % [facility] Comment: Interpretive Data Percent cell count reference ranges are not reported, since discordance with absolute values may lead to misinterpretation of CBC data. Current Interpretive Data was last revised on 2017. Testing performed by: [address] [address] Eosinophil pct 0.3 % [facility] Comment: Interpretive Data Percent cell count reference ranges are not reported, since discordance with absolute values may lead to misinterpretation of CBC data. Current Interpretive Data was last revised on 2017. Testing performed by: [address] [address] Basophil pct 0.1 % [facility] Comment: Interpretive Data Percent cell count reference ranges are not reported, since discordance with absolute values may lead to misinterpretation of CBC data. Current Interpretive Data was last revised on 2017. Testing performed by: [address] [address] Blood 06/24/2025 7:54 AM CDT 06/24/2025 8:01 AM CDT Shlomo Villalba MD LAB BLOOD ORDERABLES Final Result [facility] [address] [facility] Department [place] [address] * (ABNORMAL) CBC with auto differential (06/24/2025 7:54 AM CDT) WBC 9.39 3.80 - 9.90 K/cumm Comment:Testing performed by : [address] [address] Hgb 11.0(L) 13.0 - 17.5 g/dL [facility] Comment:Testing performed by : [address] [address] Hct 35.6(L) 38.9 - 50.3 % [facility]A Comment:Testing performed by : [address] [address] Plt 219 150 - 400 K/cumm GR[facility]A Comment:Testing performed by : [address] [address] MPV 8.9(L) 9.1 - 12.3 fL [facility]A Comment:Testing performed by : [address] [address] RBC 4.16(L) 4.30 - 5.80 M/cumm GRACIELA Comment:Testing performed by : [address] [address] MCV 85.6 81.3 - 96.4 fL [facility]A Comment:Testing performed by : [address] [address] MCH 26.4(L) 27.1 - 33.3 pg [facility]A Comment:Testing performed by : [address] [place] [address] MCHC 30.9(L) 32.3 - 35.7 g/dL GR[facility]ELA BRAUN Comment:Testing performed by : [address] [address] RDW CV 15.5(H) 11.1 - 14.9 % [facility] BRAUN Comment:Testing performed by : [address] [address] RDW SD 47.8 35.7 - 48.1 fL [facility] Comment:Testing performed by : [address] [address] NRBC abs 0.00 0.00 - 0.01 K/cumm [facility] Comment:Testing performed by : [address] [address] ANC Prelim 6.73(H) 1.50 - 6.50 K/cumm [facility] Comment: Interpretive Data The rapid ANC is a preliminary automated count and may vary from the final ANC (Neut Abs) reported in the WBC differential that follows. Current interpretive data was last revised 2024. Testing performed by: [address] [address] Blood 06/24/2025 7:54 AM CDT 06/24/2025 8:01 AM CDT Shlomo Villalba MD LAB BLOOD ORDERABLES Final Result [facility] [address] [facility] Department of Laboratories [place], [place] [id number] * PSA diagnostic (06/24/2025 7:54 AM CDT) [...] data last revised 22. Testing performed by: [address] [address] Blood 06/24/2025 7:54 AM CDT 06/24/2025 9:41 AM CDT Shlomo Villalba MD LAB BLOOD ORDERABLES Final Result [facility] [address] [facility] Department [place] [address] * (ABNORMAL) Comprehensive metabolic panel (06/24/2025 7:54 AM CDT) Sodium 132(L) 135 - 145 mmol/L Comment:Testing performed by : [address] [address] Potassium, pl 4.5 3.3 - 4.9 mmol/L [facility]A Comment:Testing performed by : [address] [address] Chloride 95(L) 97 - 110 mmol/L [facility] Comment:Testing performed by : [address] [address] CO2 28 22 - 32 mmol/L [facility] Comment:Testing performed by : [address] [address] Anion gap 9 2 - 15 mmol/L [facility] Comment:Testing performed by : [address] [address] BUN 25 6 - 25 mg/dL [facility]A Comment:Testing performed by : [address] [address] Creatinine 1.00 0.80 - 1.30 mg/dL [facility]A Comment:Testing performed by : [address] [address] Glucose 98 70 - 199 mg/dL GRACIELA [...] was last revised 2022. Testing performed by: [address] [address] Calcium 8.8 8.5 - 10.3 mg/dL [facility]A Comment:Testing performed by : [address] [address] Bilirubin, total 1.6(H) 0.1 - 1.2 mg/dL [facility]A Comment:Testing performed by : [address] [address] Protein, pl 6.3(L) 6.5 - 8.5 g/dL [facility] Comment:Testing performed by : [address] [address] Albumin 3.8 3.5 - 5.0 g/dL [facility] Comment:Testing performed by : [address] [address] Alk phos 78 40 - 130 Units/L [facility] Comment:Testing performed by : [address] [address] ALT 50 7 - 55 Units/L [facility] Comment:Testing performed by : [address] [address] AST 38 10 - 50 Units/L [facility] Comment:Testing performed by : [address] [address] Blood 06/24/2025 7:54 AM CDT 06/24/2025 8:01 AM CDT us Shlomo Villalba MD LAB BLOOD ORDERABLES Final Result [facility] [address] [facility] Department [place] [address] * RAD ONC ARIA SESSION SUMMARY (06/21/2025 9:04 AM CDT) Course Name ARIA Course Plan Date 05/30/2025 11:58 AM ARIA Elapsed Days 4 ARIA Treatment Start Date 06/17/2025 ARIA Treatment Site LT HEAD_NECK ARIA Dose Given To Date (cGy) 1,000 ARIA Session Dosage Given (cGy) 200 ARIA Plan ID LT HEAD_NECK ARIA Fractions Treated 5 ARIA Prescribed Dose Per Fraction (cGy) 200 ARIA Prescribed Total Dose (cGy) 6,600 ARIA 06/21/2025 9:04 AM CDT us Not In File Miscellaneous RADIATION ONCOLOGY ORD ERABLES Final Result Performing Organization Address [facility] Co de Phone Number ARIA * RAD ONC ARIA SESSION SUMMARY (06/20/2025 9:15 AM CDT) Course Name ARIA Course Plan Date 05/30/2025 11:58 AM ARIA Elapsed Days 3 ARIA Treatment Start Date 06/17/2025 ARIA Treatment Site LT HEAD_NECK ARIA Dose Given To Date (cGy) 800 ARIA Session Dosage Given (cGy) 200 ARIA Plan ID LT HEAD_NECK ARIA Fractions Treated 4 ARIA Prescribed Dose Per Fraction (cGy) 200 ARIA Prescribed Total Dose (cGy) 6,600 ARIA 06/20/2025 9:15 AM CDT us Not In File Miscellaneous RADIATION ONCOLOGY ORD ERABLES Final Result ARIA * RAD ONC ARIA SESSION SUMMARY (06/19/2025 9:02 AM CDT) Course Name ARIA Course Plan Date 05/30/2025 11:58 AM ARIA Elapsed Days 2 ARIA Treatment Start Date 06/17/2025 ARIA Treatment Site LT HEAD_NECK ARIA Dose Given To Date (cGy) 600 ARIA Session Dosage Given (cGy) 200 ARIA Plan ID LT HEAD_NECK ARIA Fractions Treated 3 ARIA Prescribed Dose Per Fraction (cGy) 200 ARIA Prescribed Total Dose (cGy) 6,600 ARIA 06/19/2025 9:02 AM CDT us Not In File Miscellaneous RADIATION ONCOLOGY ORD ERABLES Final Result Performing Organization Address City/[facility] Co de Phone Number JUDI * RAD ONC ARIA SESSION SUMMARY (06/18/2025 9:12 AM CDT) Course Name C1_HN ARIA Course Plan Date 05/30/2025 11:58 AM ARIA Elapsed Days 1 ARIA Treatment Start Date 06/17/2025 ARIA Treatment Site LT HEAD_NECK ARIA Dose Given To Date (cGy) 400 ARIA Session Dosage Given (cGy) 200 ARIA Plan ID LT HEAD_NECK ARIA Fractions Treated 2 ARIA Prescribed Dose Per Fraction (cGy) 200 ARIA Prescribed Total Dose (cGy) 6,600 ARIA 06/18/2025 9:12 AM CDT us Not In File Miscellaneous RADIATION ONCOLOGY ORD ERABLES Final Result Performing Organization Address [facility] de Phone Number JUDI * RAD ONC ARIA SESSION SUMMARY (06/17/2025 9:17 AM CDT) Course Name C1HN ARIA Course Plan Date 05/30/2025 11:58 AM ARIA Elapsed Days 0 ARIA Treatment Start Date 06/17/2025 ARIA Treatment Site LT HEAD_NECK ARIA Dose Given To Date (cGy) 200 ARIA Session Dosage Given (cGy) 200 ARIA Plan ID LT HEAD_NECK ARIA Fractions Treated 1 ARIA Prescribed Dose Per Fraction (cGy) 200 ARIA Prescribed Total Dose (cGy) 6,600 ARIA 06/17/2025 9:17 AM CDT us Not In File Miscellaneous RADIATION ONCOLOGY ORD ERABLES Final Result ARIA * eGFR (06/17/2025 8:32 AM CDT) eGFR 77 >=60 mL/min/1. 73 m2 Comment: [...] was last reviewed 2021. Testing performed by: [address] [address] Blood 06/17/2025 8:32 AM CDT 06/17/2025 8:34 AM CDT Shlomo Villalba MD LAB BLOOD ORDERABLES Final Result Performing Organization Address City/[facility]/ZIP Co de Phone Number [facility] [address] [facility] Department [place] [address] * (ABNORMAL) Differential, auto (06/17/2025 8:32 AM CDT) Neutrophil abs 1.28(L) 1.50 - 6.50 K/cumm Comment:Testing performed by : [address] [address] Imm gran abs 0.01 0.00 - 0.10 K/cumm GRACIELA BRAUN Comment:Testing performed by : [address] [address] Lymphocyte abs 1.98 0.80 - 3.30 K/cumm [facility] Comment:Testing performed by : [address], [place]., [address] Monocyte abs 0.48 0.20 - 0.80 K/cumm [facility] Comment:Testing performed by : [address], [place]., [address] Eosinophil abs 0.16 0.00 - 0.50 K/cumm [facility] Comment:Testing performed by : [address], [place]., [address] Basophil abs 0.04 0.00 - 0.10 K/cumm [facility] Comment:Testing performed by : [address] [address] Neutrophil pct 32.3 % [facility] Comment: Interpretive Data Percent cell count reference ranges are not reported, since discordance with absolute values may lead to misinterpretation of CBC data. Current Interpretive Data was last revised on 2017. Testing performed by: [address] [address] Imm gran pct 0.3 % [facility] Comment: Interpretive Data Percent cell count reference ranges are not reported, since discordance with absolute values may lead to misinterpretation of CBC data. Current Interpretive Data was last revised on 2017. Testing performed by: [address] [address] Lymphocyte pct 50.1 % [facility] Comment: Interpretive Data Percent cell count reference ranges are not reported, since discordance with absolute values may lead to misinterpretation of CBC data. Current Interpretive Data was last revised on 2017. Testing performed by: [address] [address] Monocyte pct 12.2 % [facility] Comment: Interpretive Data Percent cell count reference ranges are not reported, since discordance with absolute values may lead to misinterpretation of CBC data. Current Interpretive Data was last revised on 2017. Testing performed by: [address] [address] Eosinophil pct 4.1 % [facility] Comment: Interpretive Data Percent cell count reference ranges are not reported, since discordance with absolute values may lead to misinterpretation of CBC data. Current Interpretive Data was last revised on 2017. Testing performed by: [address] [address] Basophil pct 1.0 % [facility] BRAUN Comment: Interpretive Data Percent cell count reference ranges are not reported, since discordance with absolute values may lead to misinterpretation of CBC data. Current Interpretive Data was last revised on 2017. Testing performed by: [address] [address] Blood 06/17/2025 8:32 AM CDT 06/17/2025 8:34 AM CDT us Shlomo Villalba MD LAB BLOOD ORDERABLES Final Result [facility] [address] [facility] Department [place] [address] * (ABNORMAL) CBC with auto differential (06/17/2025 8:32 AM CDT) WBC 3.95 3.80 - 9.90 K/cumm Comment:Testing performed by : [address] [address] Hgb 9.7(L) 13.0 - 17.5 g/dL GR[facility] BRAUN Comment:Testing performed by : [address] [address] Hct 31.5(L) 38.9 - 50.3 % [facility] BRAUN Comment:Testing performed by : [address] [address] Plt 203 150 - 400 K/cumm [facility] BRAUN Comment:Testing performed by : [address] [address] MPV 8.5(L) 9.1 - 12.3 fL [facility] BRAUN Comment:Testing performed by : [address] [address] RBC 3.57(L) 4.30 - 5.80 M/cumm [facility] BRAUN Comment:Testing performed by : [address] [address] MCV 88.2 81.3 - 96.4 fL [facility] Comment:Testing performed by : [address] [address] MCH 27.2 27.1 - 33.3 pg [facility] BRAUN Comment:Testing performed by : [address] [address] MCHC 30.8(L) 32.3 - 35.7 g/dL [facility] Comment:Testing performed by : [address] [address] RDW CV 15.0(H) 11.1 - 14.9 % [facility] Comment:Testing performed by : [address] [address] RDW SD 48.4(H) 35.7 - 48.1 fL [facility] Comment:Testing performed by : [address] [address] NRBC abs 0.00 0.00 - 0.01 K/cumm [facility] Comment:Testing performed by : [address] [address] ANC Prelim 1.28(L) 1.50 - 6.50 K/cumm [facility] Comment: Interpretive Data The rapid ANC is a preliminary automated count and may vary from the final ANC (Neut Abs) reported in the WBC differential that follows. Current interpretive data was last revised 2024. Testing performed by: [address] [address] Blood 06/17/2025 8:32 AM CDT 06/17/2025 8:34 AM CDT us Shlomo Villalba MD LAB BLOOD ORDERABLES Final Result [facility] BRAUN [address] [facility] Department of Laboratories [place], [place] [id number] * (ABNORMAL) Comprehensive metabolic panel (06/17/2025 8:32 AM CDT) Sodium 138 135 - 145 mmol/L Comment:Testing performed by : [facility], [address] [place] [address], [place]., [address] Potassium, pl 4.4 3.3 - 4.9 mmol/L [facility] Comment:Testing performed by : [address], [place]., [address] Chloride 103 97 - 110 mmol/L [facility] Comment:Testing performed by : [address], [place]., [address] CO2 24 22 - 32 mmol/L [facility] Comment:Testing performed by : [address], [place]., [address] Anion gap 11 2 - 15 mmol/L [facility] Comment:Testing performed by : [address], [place]., [address] BUN 16 6 - 25 mg/dL [facility] Comment:Testing performed by : [address], [place]., [address] Creatinine 1.00 0.80 - 1.30 mg/dL [facility] Comment:Testing performed by : [address], [place]., [address] Glucose 98 70 - 199 mg/dL [facility] Comment: Interpretive Data Fasting glucose >/= 126 [...] classification and Diagnosis of Diabetes Diabetes Care 202; 46: S19-S40. Current interpretive data was last revised 2022. Testing performed by: [address], [place]., [address] Calcium 8.9 8.5 - 10.3 mg/dL [facility] Comment:Testing performed by : [address], [place]., [address] Bilirubin, total 1.3(H) 0.1 - 1.2 mg/dL [facility] Comment:Testing performed by : [address], [place]., [address] Protein, pl 6.5 6.5 - 8.5 g/dL [facility] Comment:Testing performed by : [address] [address] Albumin 3.7 3.5 - 5.0 g/dL [facility] Comment:Testing performed by : [address] [address] Alk phos 97 40 - 130 Units/L [facility] Comment:Testing performed by : [address] [address] ALT 12 7 - 55 Units/L [facility] Comment:Testing performed by : [address] [address] AST 19 10 - 50 Units/L [facility] Comment:Testing performed by : [address] [address] Blood 06/17/2025 8:32 AM CDT 06/17/2025 8:34 AM CDT Shlomo Villalba MD LAB BLOOD ORDERABLES Final Result [facility] [address] [facility] Department [place] [address] * XR Chest PA Lateral 2 Views (If patient hemodynamically stable and ambulatory) (04/29/2025 1:34 PM CDT) Anatomical Region Laterality Modality Body, Chest N/A Computed Radiogr aphy 04/29/2025 1:38 PM CDT Impressions 04/29/2025 2:43 PM CDT No prior images available for comparison. No pulmonary consolidation, pleural effusion, pneumothorax. Mildly enlarged right atrium. Dictated by: Johnny Vega M.D. The radiology attending physician has personally reviewed this study, and had reviewed and/or edited this written report and agrees with it. Electronically signed by: Jayden Fuller M.D. Narrative 04/29/2025 2:43 PM CDT EXAMINATION: 2 view chest radiograph Procedure Note Jayden Fuller MD - 04/29/2025 EXAMINATION: 2 view chest radiograph IMPRESSION: No prior images available for comparison. No pulmonary consolidation, pleural effusion, pneumothorax. Mildly enlarged right atrium. Dictated by: Johnny Vega M.D. The radiology attending physician has personally reviewed this study, and had reviewed and/or edited this written report and agrees with it. Electronically signed by: Jayden Fuller M.D. us Tres Lamar Jr., MD IMG XR PROCEDURES Veronika l Result * POCT lactate (04/29/2025 12:44 PM CDT) Lactate POC i-STAT 1.0 0.7 - 2.0 mmol/L Blood 04/29/2025 12:4 4 PM CDT 04/29/2025 12:44 PM CDT us Notinfile Unknown LAB POCT ORDERABLES - DEVICE F inal Result [facility] [address] [facility] Department [place] [address] * eGFR (04/29/2025 12:38 PM CDT) Pathologist [facility] eGFR 87 >=60 mL/min/1. 73 m2 Comment: Interpretive Data [...] of Race in Diagnosing Kidney Disease, JASN 202). The CKD-EPI equation should not be used for patients with unstable renal function and has not been validated in children and those over 70. Current interpretive data was last reviewed 2021. Blood 04/29/2025 12:3 8 PM CDT 04/29/2025 12:59 PM CDT us Tres Lamar Jr., MD LAB BLOOD ORDERABLES F inal Result [facility] [address] [facility] Department [place] [address] * Differential, auto (04/29/2025 12:38 PM CDT) Neutrophil abs 2.44 1.50 - 6.50 K/cumm Imm gran abs 0.02 0.00 - 0.10 K/cumm [facility] Lymphocyte abs 1.50 0.80 - 3.30 K/cumm [facility] Monocyte abs 0.48 0.20 - 0.80 K/cumm [facility] Eosinophil abs 0.16 0.00 - 0.50 K/cumm [facility] Basophil abs 0.03 0.00 - 0.10 K/cumm [facility] Neutrophil pct 52.7 % [facility] Comment: Interpretive Data Percent cell count reference ranges are not reported, since discordance with absolute values may lead to misinterpretation of CBC data. Current Interpretive Data was last revised on 2017. Imm gran pct 0.4 % [facility] Comment: Interpretive Data Percent cell count reference ranges are not reported, since discordance with absolute values may lead to misinterpretation of CBC data. Current Interpretive Data was last revised on 2017. Lymphocyte pct 32.4 % [facility] Comment: Interpretive Data Percent cell count reference ranges are not reported, since discordance with absolute values may lead to misinterpretation of CBC data. Current Interpretive Data was last revised on 2017. Monocyte pct 10.4 % [facility] Comment: Interpretive Data Percent cell count reference ranges are not reported, since discordance with absolute values may lead to misinterpretation of CBC data. Current Interpretive Data was last revised on 2017. Eosinophil pct 3.5 % [facility] Comment: Interpretive Data Percent cell count reference ranges are not reported, since discordance with absolute values may lead to misinterpretation of CBC data. Current Interpretive Data was last revised on 2017. Basophil pct 0.6 % [facility] Comment: Interpretive Data Percent cell count reference ranges are not reported, since discordance with absolute values may lead to misinterpretation of CBC data. Current Interpretive Data was last revised on 2017. Blood 04/29/2025 12:3 8 PM CDT 04/29/2025 12:59 PM CDT us Tres Lamar Jr., MD LAB BLOOD ORDERABLES F inal Result [facility] Department [place] [address] * (ABNORMAL) CBC with auto differential (04/29/2025 12:38 PM CDT) WBC 4.63 3.80 - 9.90 K/cumm Hgb 10.2(L) 13.0 - 17.5 g/dL [facility] Hct 32.8(L) 38.9 - 50.3 % [facility] Plt 265 150 - 400 K/cumm [facility] MPV 9.3 9.1 - 12.3 fL [facility] RBC 3.30(L) 4.30 - 5.80 M/cumm [facility] MCV 99.4(H) 81.3 - 96.4 fL [facility] MCH 30.9 27.1 - 33.3 pg [facility] MCHC 31.1(L) 32.3 - 35.7 g/dL [facility] RDW CV 13.6 11.1 - 14.9 % [facility] RDW SD 49.5(H) 35.7 - 48.1 fL [facility] NRBC abs 0.00 0.00 - 0.01 K/cumm [facility] Blood 04/29/2025 12:3 8 PM CDT 04/29/2025 12:59 PM CDT Tres Lamar Jr., MD LAB BLOOD ORDERABLES F inal Result [facility] Department [place] [address] * (ABNORMAL) Comprehensive metabolic panel (04/29/2025 12:38 PM CDT) Sodium 137 135 - 145 mmol/L Potassium, pl 4.4 3.3 - 4.9 mmol/L [facility] Chloride 101 97 - 110 mmol/L [facility] CO2 26 22 - 32 mmol/L [facility] Anion gap 10 2 - 15 mmol/L [facility] BUN 11 6 - 25 mg/dL [facility] Creatinine 0.91 0.80 - 1.30 mg/dL [facility] Glucose 104 70 - 199 mg/dL [facility] Comment: Interpretive Data Fasting glucose >/= 126 [...] classification and Diagnosis of Diabetes Diabetes Care 202; 46: S19-S40. Current interpretive data was last revised 2022. Calcium 8.9 8.5 - 10.3 mg/dL [facility] Bilirubin, total 0.8 0.1 - 1.2 mg/dL [facility] Protein, pl 6.7 6.5 - 8.5 g/dL [facility] Albumin 3.4(L) 3.5 - 5.0 g/dL [facility] Alk phos 73 40 - 130 Units/L [facility] ALT 11 7 - 55 Units/L [facility] AST 16 10 - 50 Units/L [facility] Blood 04/29/2025 12:3 8 PM CDT 04/29/2025 12:59 PM CDT Tres Lamar Jr., MD LAB BLOOD ORDERABLES F inal Result [facility] Department [place] [address] * (ABNORMAL) Differential, auto (04/11/2025 8:38 PM CDT) Neutrophil abs 4.23 1.50 - 6.50 K/cumm Imm gran abs 0.12(H) 0.00 - 0.10 K/cumm [facility] Lymphocyte abs 2.83 0.80 - 3.30 K/cumm [facility] Monocyte abs 0.77 0.20 - 0.80 K/cumm [facility] Eosinophil abs 0.17 0.00 - 0.50 K/cumm [facility] Basophil abs 0.02 0.00 - 0.10 K/cumm [facility] Neutrophil pct 51.9 % [facility] Comment: Interpretive Data Percent cell count reference ranges are not reported, since discordance with absolute values may lead to misinterpretation of CBC data. Current Interpretive Data was last revised on 2017. Imm gran pct 1.5 % [facility] Comment: Interpretive Data Percent cell count reference ranges are not reported, since discordance with absolute values may lead to misinterpretation of CBC data. Current Interpretive Data was last revised on 2017. Lymphocyte pct 34.8 % [facility] Comment: Interpretive Data Percent cell count reference ranges are not reported, since discordance with absolute values may lead to misinterpretation of CBC data. Current Interpretive Data was last revised on 2017. Monocyte pct 9.5 % [facility] Comment: Interpretive Data Percent cell count reference ranges are not reported, since discordance with absolute values may lead to misinterpretation of CBC data. Current Interpretive Data was last revised on 2017. Eosinophil pct 2.1 % [facility] Comment: Interpretive Data Percent cell count reference ranges are not reported, since discordance with absolute values may lead to misinterpretation of CBC data. Current Interpretive Data was last revised on 2017. Basophil pct 0.2 % [facility] Comment: Interpretive Data Percent cell count reference ranges are not reported, since discordance with absolute values may lead to misinterpretation of CBC data. Current Interpretive Data was last revised on 2017. Blood 04/11/2025 8:38 PM CDT 04/11/2025 9:08 PM CDT Mitul You ROLL PANNER LAB BLOOD ORDERABLES Final Result Performing Organization Address [facility] Co de Phone Number [facility] [place] [address] * (ABNORMAL) CBC with auto differential (04/11/2025 8:38 PM CDT) WBC 8.14 3.80 - 9.90 K/cumm Hgb 9.4(L) 13.0 - 17.5 g/dL [facility] Hct 29.2(L) 38.9 - 50.3 % [facility] Plt 182 150 - 400 K/cumm [facility] MPV 9.4 9.1 - 12.3 fL [facility] RBC 2.95(L) 4.30 - 5.80 M/cumm [facility] MCV 99.0(H) 81.3 - 96.4 fL [facility] MCH 31.9 27.1 - 33.3 pg [facility] MCHC 32.2(L) 32.3 - 35.7 g/dL [facility] RDW CV 14.1 11.1 - 14.9 % [facility] RDW SD 50.4(H) 35.7 - 48.1 fL [facility] NRBC abs 0.00 0.00 - 0.01 K/cumm [facility] Blood 04/11/2025 8:38 PM CDT 04/11/2025 9:08 PM CDT Mitul You NP LAB BLOOD ORDERABLES Final Result Performing Organization Address City/[facility]/ZIP Co de Phone Number [facility] [place] [address] * Infection Prevention Gallito auris PCR, surveillance Axilla/Groin (04/11/2025 12:29 PM CDT) Gallito auris DNA Not Detected Not Detected [facility] Comment: Interpretive Data Testing performed by [facility] Molecular Infectious Disease Laboratory using the Andrea maritza [id number] Gallito auris assay. This assay detects DNA from Gallito auris using Real-Time PCR. This assay is laboratory developed and is not cleared by the [facility] Food and Drug Administration. The performance characteristics have been verified by the [facility] Molecular Infectious Disease Laboratory. Axilla/Groin 04/11/2025 12:2 9 PM CDT 04/11/2025 12:59 PM CDT us Vasquez Rivas MD LAB MICROBIOLOGY - GENERAL ORDER RANI Final Result [facility] Department [place] [address] [facility] * eGFR (04/10/2025 10:58 PM CDT) eGFR >90 >=60 mL/min/1. 73 m2 Comment: Interpretive Data [...] Current interpretive data was last reviewed 2021. Blood 04/10/2025 10:5 8 PM CDT 04/10/2025 11:41 PM CDT us Anne Marie Salcido NP LAB BLOOD ORDERABLES F inal Result [facility] Department [place] [address] * Differential, auto (04/10/2025 10:58 PM CDT) Neutrophil abs 4.41 1.50 - 6.50 K/cumm Imm gran abs 0.06 0.00 - 0.10 K/cumm [facility] Lymphocyte abs 2.49 0.80 - 3.30 K/cumm [facility] Monocyte abs 0.54 0.20 - 0.80 K/cumm [facility] Eosinophil abs 0.16 0.00 - 0.50 K/cumm [facility] Basophil abs 0.01 0.00 - 0.10 K/cumm [facility] Neutrophil pct 57.5 % [facility] Comment: Interpretive Data Percent cell count reference ranges are not reported, since discordance with absolute values may lead to misinterpretation of CBC data. Current Interpretive Data was last revised on 2017. Imm gran pct 0.8 % [facility] Comment: Interpretive Data Percent cell count reference ranges are not reported, since discordance with absolute values may lead to misinterpretation of CBC data. Current Interpretive Data was last revised on 2017. Lymphocyte pct 32.5 % [facility] Comment: Interpretive Data Percent cell count reference ranges are not reported, since discordance with absolute values may lead to misinterpretation of CBC data. Current Interpretive Data was last revised on 2017. Monocyte pct 7.0 % [facility] Comment: Interpretive Data Percent cell count reference ranges are not reported, since discordance with absolute values may lead to misinterpretation of CBC data. Current Interpretive Data was last revised on 2017. Eosinophil pct 2.1 % [facility] Comment: Interpretive Data Percent cell count reference ranges are not reported, since discordance with absolute values may lead to misinterpretation of CBC data. Current Interpretive Data was last revised on 2017. Basophil pct 0.1 % [facility] Comment: Interpretive Data Percent cell count reference ranges are not reported, since discordance with absolute values may lead to misinterpretation of CBC data. Current Interpretive Data was last revised on 2017. Blood 04/10/2025 10:5 8 PM CDT 04/10/2025 11:41 PM CDT Mitul oYu ROLL PANNER LAB BLOOD ORDERABLES Final Result [facility] Department [place] [address] * (ABNORMAL) CBC with auto differential (04/10/2025 10:58 PM CDT) WBC 7.67 3.80 - 9.90 K/cumm Hgb 9.2(L) 13.0 - 17.5 g/dL [facility] Hct 27.3(L) 38.9 - 50.3 % [facility] Plt 178 150 - 400 K/cumm [facility] MPV 9.2 9.1 - 12.3 fL [facility] RBC 2.80(L) 4.30 - 5.80 M/cumm [facility] MCV 97.5(H) 81.3 - 96.4 fL [facility] MCH 32.9 27.1 - 33.3 pg [facility] MCHC 33.7 32.3 - 35.7 g/dL [facility] RDW CV 14.0 11.1 - 14.9 % [facility] RDW SD 49.1(H) 35.7 - 48.1 fL [facility] NRBC abs 0.00 0.00 - 0.01 K/cumm [facility] Blood 04/10/2025 10:5 8 PM CDT 04/10/2025 11:41 PM CDT Mitul You NP LAB BLOOD ORDERABLES Final Result [facility] Department [place] [address] * (ABNORMAL) Basic metabolic panel (04/10/2025 10:58 PM CDT) Pathologist [facility] Sodium 139 135 - 145 mmol/L Potassium, pl 4.1 3.3 - 4.9 mmol/L [facility] Chloride 102 97 - 110 mmol/L [facility] CO2 29 22 - 32 mmol/L [facility] Anion gap 8 2 - 15 mmol/L [facility] BUN 11 6 - 25 mg/dL [facility] Creatinine 0.76(L) 0.80 - 1.30 mg/dL [facility] Glucose 116 70 - 199 mg/dL [facility] Comment: Interpretive Data Fasting glucose >/= 126 [...] Current interpretive data was last revised 2022. Calcium 8.7 8.5 - 10.3 mg/dL [facility] Blood 04/10/2025 10:5 8 PM CDT 04/10/2025 11:41 PM CDT Anne Marie Salcido NP LAB BLOOD ORDERABLES F inal Result [facility] [place] [address] * Differential, auto (04/09/2025 10:24 PM CDT) [facility] Neutrophil abs 4.34 1.50 - 6.50 K/cumm Imm gran abs 0.06 0.00 - 0.10 K/cumm [facility] Lymphocyte abs 2.51 0.80 - 3.30 K/cumm [facility] Monocyte abs 0.59 0.20 - 0.80 K/cumm [facility] Eosinophil abs 0.15 0.00 - 0.50 K/cumm [facility] Basophil abs 0.01 0.00 - 0.10 K/cumm [facility] Neutrophil pct 56.6 % [facility] Comment: Interpretive Data Percent cell count reference ranges are not reported, since discordance with absolute values may lead to misinterpretation of CBC data. Current Interpretive Data was last revised on 2017. Imm gran pct 0.8 % [facility] Comment: Interpretive Data Percent cell count reference ranges are not reported, since discordance with absolute values may lead to misinterpretation of CBC data. Current Interpretive Data was last revised on 2017. Lymphocyte pct 32.8 % [facility] Comment: Interpretive Data Percent cell count reference ranges are not reported, since discordance with absolute values may lead to misinterpretation of CBC data. Current Interpretive Data was last revised on 2017. Monocyte pct 7.7 % [facility] Comment: Interpretive Data Percent cell count reference ranges are not reported, since discordance with absolute values may lead to misinterpretation of CBC data. Current Interpretive Data was last revised on 2017. Eosinophil pct 2.0 % [facility] Comment: Interpretive Data Percent cell count reference ranges are not reported, since discordance with absolute values may lead to misinterpretation of CBC data. Current Interpretive Data was last revised on 2017. Basophil pct 0.1 % [facility] Comment: Interpretive Data Percent cell count reference ranges are not reported, since discordance with absolute values may lead to misinterpretation of CBC data. Current Interpretive Data was last revised on 2017. Blood 04/09/2025 10:2 4 PM CDT 04/09/2025 10:42 PM CDT us Mitul You NP LAB BLOOD ORDERABLES Final Result [facility] Department [place] [address] * (ABNORMAL) CBC with auto differential (04/09/2025 10:24 PM CDT) Pathologist [facility] WBC 7.66 3.80 - 9.90 K/cumm Hgb 8.9(L) 13.0 - 17.5 g/dL [facility] Hct 26.7(L) 38.9 - 50.3 % [facility] Plt 174 150 - 400 K/cumm [facility] MPV 8.9(L) 9.1 - 12.3 fL [facility] RBC 2.72(L) 4.30 - 5.80 M/cumm [facility] MCV 98.2(H) 81.3 - 96.4 fL [facility] MCH 32.7 27.1 - 33.3 pg [facility] MCHC 33.3 32.3 - 35.7 g/dL [facility] RDW CV 13.8 11.1 - 14.9 % [facility] RDW SD 48.2(H) 35.7 - 48.1 fL [facility] NRBC abs 0.02(H) 0.00 - 0.01 K/cumm [facility] Blood 04/09/2025 10:2 4 PM CDT 04/09/2025 10:42 PM CDT us Mitul You NP LAB BLOOD ORDERABLES Final Result Performing Organization Address [facility]/ZIP Co de Phone Number [facility] Department [place] [address] * POCT glucose (04/09/2025 9:09 AM CDT) [facility] Glucose, POC 97 70 - 199 mg/dL Blood 04/09/2025 9:09 AM CDT 04/09/2025 9:09 AM CDT Odalys Stiles MD LAB POCT ORDERABLES - DEVICE F inal Result Performing Organization Address City/[facility] Co de Phone Number [facility] Department [place] [address] * (ABNORMAL) Cell count w/reflex diff, CSF (04/09/2025 9:07 AM CDT) Tube Number, CSF Black Screw Cap Color, CSF Vansant(A) Colorless [facility] Clarity, CSF Clear Clear [facility] Xanthochromia , CSF Absent Absent [facility] Nucleated cells, CSF 0 0 - 5 /cumm [facility] RBC, CSF 3,983(H) 0 - 0 /cumm [facility] CSF 04/09/2025 9:07 AM CDT 04/09/2025 10:11 AM CDT Odalys Stiles MD LAB BODY FLUIDS AND STOOLS ORD ERABLES Final Result [facility] One [facility] [place] [address] * Critical Result Callback Chemistry (04/09/2025 9:07 AM CDT) Date Notified [id number] Time Notified 17:18 [facility] TestName Glucose, CSF [facility] MEDEROS Called/Read Back Bertha [facility] Credentials RN [facility] SOTO Called By [facility] CSF 04/09/2025 9:07 AM CDT 04/09/2025 10:11 AM CDT Odalys Stiles MD LAB BLOOD ORDERABLES Final Res ult [facility] [place] [address] * Bacterial culture and gram stain, CSF CSF (04/09/2025 9:07 AM CDT) Direct Specimen Exam Stain: No polymorphonuclear leukocytes seen. Red blood cells present. No organisms seen. Report Final Report: No growth [facility] CSF 04/09/2025 9:07 AM CDT 04/09/2025 10:00 AM CDT Narrative [facility] - 04/14/2025 11:29 AM CDT Testing performed by [facility] Microbiology Laboratory ([phone]). us Odalys Stiles MD LAB MICROBIOLOGY - GENERAL ORD ERABLES Final Result Performing Organization Address [facility] de Phone Number [facility] Department [place] [address] * (ABNORMAL) Protein, total, CSF (04/09/2025 9:07 AM CDT) Protein, CSF 51(H) 5 - 45 mg/dL Comment:Cells present. Resul ts may be falsely elevated. CSF 04/09/2025 9:07 AM CDT 04/09/2025 10:11 AM CDT Odalys Stiles MD LAB BODY FLUIDS AND STOOLS ORD ERABLES Final Result Performing Organization Address [facility] de Phone Number [facility] Department [place] [address] * (ABNORMAL) Glucose, CSF (04/09/2025 9:07 AM CDT) Glucose, CSF 33(C) mg/dL Comment: Reviewed Reference Interval Information: CSF Glucose should be 60-66% of the most current plasma glucose concentration (milligrams/deciliter) CLIN. CHEM. 41/3, 343-360 (1994), Clinical Utility of Biochemical Analysis of Cerebrospinal Fluid, Ariel Barbosa and Dickson Allen. Current interpretive data was last revised on 2019. CSF 04/09/2025 9:07 AM CDT 04/09/2025 10:11 AM CDT us Odalys Stiles MD LAB BODY FLUIDS AND STOOLS ORD ERABLES Final Result Performing Organization Address [facility] Co de Phone Number [facility] Department [place] [address] * eGFR (04/08/2025 8:46 PM CDT) Pathologist [facility] eGFR 90 >=60 mL/min/1. 73 m2 Comment: Interpretive Data [...] Current interpretive data was last reviewed 2021. Blood 04/08/2025 8:46 PM CDT 04/08/2025 9:08 PM CDT Anne Marie Salcido NP LAB BLOOD ORDERABLES F inal Result Performing Organization Address [facility] Co de Phone Number [facility] [place] [address] * Differential, auto (04/08/2025 8:46 PM CDT) Pathologist [facility] Neutrophil abs 6.19 1.50 - 6.50 K/cumm Imm gran abs 0.07 0.00 - 0.10 K/cumm [facility] Lymphocyte abs 2.39 0.80 - 3.30 K/cumm [facility] Monocyte abs 0.61 0.20 - 0.80 K/cumm [facility] Eosinophil abs 0.02 0.00 - 0.50 K/cumm [facility] Basophil abs 0.01 0.00 - 0.10 K/cumm [facility] Neutrophil pct 66.6 % [facility] Comment: Interpretive Data Percent cell count reference ranges are not reported, since discordance with absolute values may lead to misinterpretation of CBC data. Current Interpretive Data was last revised on 2017. Imm gran pct 0.8 % [facility] Comment: Interpretive Data Percent cell count reference ranges are not reported, since discordance with absolute values may lead to misinterpretation of CBC data. Current Interpretive Data was last revised on 2017. Lymphocyte pct 25.7 % [facility] Comment: Interpretive Data Percent cell count reference ranges are not reported, since discordance with absolute values may lead to misinterpretation of CBC data. Current Interpretive Data was last revised on 2017. Monocyte pct 6.6 % [facility] Comment: Interpretive Data Percent cell count reference ranges are not reported, since discordance with absolute values may lead to misinterpretation of CBC data. Current Interpretive Data was last revised on 2017. Eosinophil pct 0.2 % [facility] Comment: Interpretive Data Percent cell count reference ranges are not reported, since discordance with absolute values may lead to misinterpretation of CBC data. Current Interpretive Data was last revised on 2017. Basophil pct 0.1 % [facility] Comment: Interpretive Data Percent cell count reference ranges are not reported, since discordance with absolute values may lead to misinterpretation of CBC data. Current Interpretive Data was last revised on 2017. Blood 04/08/2025 8:46 PM CDT 04/08/2025 9:08 PM CDT us Mitul You NP LAB BLOOD ORDERABLES Final Result [facility] [place] [address] * (ABNORMAL) CBC with auto differential (04/08/2025 8:46 PM CDT) WBC 9.29 3.80 - 9.90 K/cumm Hgb 9.9(L) 13.0 - 17.5 g/dL [facility] Hct 30.1(L) 38.9 - 50.3 % [facility] Plt 173 150 - 400 K/cumm [facility] MPV 9.1 9.1 - 12.3 fL [facility] RBC 3.06(L) 4.30 - 5.80 M/cumm [facility] MCV 98.4(H) 81.3 - 96.4 fL [facility] MCH 32.4 27.1 - 33.3 pg [facility] MCHC 32.9 32.3 - 35.7 g/dL [facility] RDW CV 13.6 11.1 - 14.9 % [facility] RDW SD 48.3(H) 35.7 - 48.1 fL [facility] NRBC abs 0.02(H) 0.00 - 0.01 K/cumm [facility] Blood 04/08/2025 8:46 PM CDT 04/08/2025 9:08 PM CDT us Mitul You NP LAB BLOOD ORDERABLES Final Result [facility] Department [place] [address] * (ABNORMAL) Phosphorus (04/08/2025 8:46 PM CDT) Pathologist [facility] Phosphorus, pl 2.1(L) 2.3 - 4.5 mg/dL Blood 04/08/2025 8:46 PM CDT 04/08/2025 9:08 PM CDT us Odalys Stiles MD LAB BLOOD ORDERABLES Final Res ult [facility] [place] [address] * Basic metabolic panel (04/08/2025 8:46 PM CDT) Pathologist [facility] Sodium 137 135 - 145 mmol/L Potassium, pl 4.3 3.3 - 4.9 mmol/L [facility] Chloride 102 97 - 110 mmol/L [facility] CO2 29 22 - 32 mmol/L [facility] Anion gap 6 2 - 15 mmol/L [facility] BUN 14 6 - 25 mg/dL [facility] Creatinine 0.82 0.80 - 1.30 mg/dL [facility] Glucose 120 70 - 199 mg/dL [facility] Comment: Interpretive Data Fasting glucose >/= 126 [...] Current interpretive data was last revised 2022. Calcium 8.6 8.5 - 10.3 mg/dL [facility] Blood 04/08/2025 8:46 PM CDT 04/08/2025 9:08 PM CDT Anne Marie Salcido NP LAB BLOOD ORDERABLES F inal Result [facility] Department [place] [address] * Differential, auto (04/08/2025 3:44 AM CDT) [facility] Neutrophil abs 5.80 1.50 - 6.50 K/cumm Imm gran abs 0.09 0.00 - 0.10 K/cumm [facility] Lymphocyte abs 1.15 0.80 - 3.30 K/cumm [facility] Monocyte abs 0.62 0.20 - 0.80 K/cumm [facility] Eosinophil abs 0.00 0.00 - 0.50 K/cumm [facility] Basophil abs 0.00 0.00 - 0.10 K/cumm [facility] Neutrophil pct 75.7 % [facility] Comment: Interpretive Data Percent cell count reference ranges are not reported, since discordance with absolute values may lead to misinterpretation of CBC data. Current Interpretive Data was last revised on 2017. Imm gran pct 1.2 % [facility] Comment: Interpretive Data Percent cell count reference ranges are not reported, since discordance with absolute values may lead to misinterpretation of CBC data. Current Interpretive Data was last revised on 2017. Lymphocyte pct 15.0 % [facility] Comment: Interpretive Data Percent cell count reference ranges are not reported, since discordance with absolute values may lead to misinterpretation of CBC data. Current Interpretive Data was last revised on 2017. Monocyte pct 8.1 % [facility] Comment: Interpretive Data Percent cell count reference ranges are not reported, since discordance with absolute values may lead to misinterpretation of CBC data. Current Interpretive Data was last revised on 2017. Eosinophil pct 0.0 % [facility] Comment: Interpretive Data Percent cell count reference ranges are not reported, since discordance with absolute values may lead to misinterpretation of CBC data. Current Interpretive Data was last revised on 2017. Basophil pct 0.0 % [facility] Comment: Interpretive Data Percent cell count reference ranges are not reported, since discordance with absolute values may lead to misinterpretation of CBC data. Current Interpretive Data was last revised on 2017. Blood 04/08/2025 3:44 AM CDT 04/08/2025 3:57 AM CDT us Odalys Stiles MD LAB BLOOD ORDERABLES Final Res ult [facility] [place] [address] * (ABNORMAL) CBC with auto differential (04/08/2025 3:44 AM CDT) WBC 7.66 3.80 - 9.90 K/cumm Hgb 8.0(L) 13.0 - 17.5 g/dL [facility] Hct 24.8(L) 38.9 - 50.3 % [facility] Plt 130(L) 150 - 400 K/cumm [facility] MPV 9.3 9.1 - 12.3 fL [facility] RBC 2.49(L) 4.30 - 5.80 M/cumm [facility] MCV 99.6(H) 81.3 - 96.4 fL [facility] MCH 32.1 27.1 - 33.3 pg [facility] MCHC 32.3 32.3 - 35.7 g/dL [facility] RDW CV 13.4 11.1 - 14.9 % [facility] RDW SD 48.3(H) 35.7 - 48.1 fL [facility] NRBC abs 0.00 0.00 - 0.01 K/cumm [facility] Blood 04/08/2025 3:44 AM CDT 04/08/2025 3:57 AM CDT Odalys Stiles MD LAB BLOOD ORDERABLES Final Res ult Performing Organization Address City/[facility]/ZIP Co de Phone Number [facility] [place] [address] * Magnesium (04/07/2025 8:01 PM CDT) Pathologist [facility] Magnesium 2.1 1.4 - 2.5 mg/dL Blood 04/07/2025 8:01 PM CDT 04/07/2025 8:09 PM CDT Odalys Stiles MD LAB BLOOD ORDERABLES Final Res ult [facility] [place] [address] * eGFR (04/07/2025 5:56 AM CDT) Pathologist [facility] eGFR >90 >=60 mL/min/1. 73 m2 Comment: Interpretive Data [...] Current interpretive data was last reviewed 2021. Blood 04/07/2025 5:56 AM CDT 04/07/2025 6:19 AM CDT us Odalys Stiles MD LAB BLOOD ORDERABLES Final Res ult [facility] Department of Laboratories [place], [place] [id number] * Differential, auto (04/07/2025 5:56 AM CDT) Neutrophil abs 6.48 1.50 - 6.50 K/cumm Imm gran abs 0.06 0.00 - 0.10 K/cumm [facility] Lymphocyte abs 0.84 0.80 - 3.30 K/cumm [facility] Monocyte abs 0.32 0.20 - 0.80 K/cumm [facility] Eosinophil abs 0.01 0.00 - 0.50 K/cumm [facility] Basophil abs 0.00 0.00 - 0.10 K/cumm [facility] Neutrophil pct 84.0 % [facility] Comment: Interpretive Data Percent cell count reference ranges are not reported, since discordance with absolute values may lead to misinterpretation of CBC data. Current Interpretive Data was last revised on 2017. Imm gran pct 0.8 % [facility] Comment: Interpretive Data Percent cell count reference ranges are not reported, since discordance with absolute values may lead to misinterpretation of CBC data. Current Interpretive Data was last revised on 2017. Lymphocyte pct 10.9 % [facility] Comment: Interpretive Data Percent cell count reference ranges are not reported, since discordance with absolute values may lead to misinterpretation of CBC data. Current Interpretive Data was last revised on 2017. Monocyte pct 4.2 % [facility] Comment: Interpretive Data Percent cell count reference ranges are not reported, since discordance with absolute values may lead to misinterpretation of CBC data. Current Interpretive Data was last revised on 2017. Eosinophil pct 0.1 % [facility] Comment: Interpretive Data Percent cell count reference ranges are not reported, since discordance with absolute values may lead to misinterpretation of CBC data. Current Interpretive Data was last revised on 2017. Basophil pct 0.0 % [facility] Comment: Interpretive Data Percent cell count reference ranges are not reported, since discordance with absolute values may lead to misinterpretation of CBC data. Current Interpretive Data was last revised on 2017. Blood 04/07/2025 5:56 AM CDT 04/07/2025 6:18 AM CDT us Odalys Stiles MD LAB BLOOD ORDERABLES Final Res ult [facility] Department [place] [address] * (ABNORMAL) CBC with auto differential (04/07/2025 5:56 AM CDT) WBC 7.71 3.80 - 9.90 K/cumm Hgb 8.1(L) 13.0 - 17.5 g/dL [facility] Hct 24.8(L) 38.9 - 50.3 % [facility] Plt 127(L) 150 - 400 K/cumm [facility] MPV 9.3 9.1 - 12.3 fL [facility] RBC 2.50(L) 4.30 - 5.80 M/cumm [facility] MCV 99.2(H) 81.3 - 96.4 fL [facility] MCH 32.4 27.1 - 33.3 pg [facility] MCHC 32.7 32.3 - 35.7 g/dL [facility] RDW CV 13.5 11.1 - 14.9 % [facility] RDW SD 48.7(H) 35.7 - 48.1 fL [facility] NRBC abs 0.02(H) 0.00 - 0.01 K/cumm [facility] Blood 04/07/2025 5:56 AM CDT 04/07/2025 6:18 AM CDT us Odalys Stiles MD LAB BLOOD ORDERABLES Final Res ult [facility] Department [place] [address] * (ABNORMAL) Basic metabolic panel (04/07/2025 5:56 AM CDT) Sodium 135 135 - 145 mmol/L Potassium, pl 4.6 3.3 - 4.9 mmol/L [facility] Chloride 103 97 - 110 mmol/L [facility] CO2 26 22 - 32 mmol/L [facility] Anion gap 6 2 - 15 mmol/L [facility] BUN 12 6 - 25 mg/dL [facility] Creatinine 0.68(L) 0.80 - 1.30 mg/dL [facility] Glucose 142 70 - 199 mg/dL [facility] Comment: Interpretive Data Fasting glucose >/= 126 [...] classification and Diagnosis of Diabetes Diabetes Care 202; 46: S19-S40. Current interpretive data was last revised 2022. Calcium 8.2(L) 8.5 - 10.3 mg/dL [facility] Blood 04/07/2025 5:56 AM CDT 04/07/2025 6:19 AM CDT Odalys Stiles MD LAB BLOOD ORDERABLES Final Res ult Performing Organization Address City/[facility]/ZIP Co de Phone Number [facility] [place] [address] * eGFR (04/06/2025 7:26 PM CDT) eGFR 89 >=60 mL/min/1. 73 m2 Comment: Interpretive Data [...] Current interpretive data was last reviewed 2021. Blood 04/06/2025 7:26 PM CDT 04/06/2025 7:38 PM CDT us Mitul You NP LAB BLOOD ORDERABLES Final Result Performing Organization Address [facility]/ZIP Co de Phone Number [facility] Department [place] [address] * (ABNORMAL) Phosphorus (04/06/2025 7:26 PM CDT) [facility] Phosphorus, pl 2.1(L) 2.3 - 4.5 mg/dL Blood 04/06/2025 7:26 PM CDT 04/06/2025 7:35 PM CDT Mitul You NP LAB BLOOD ORDERABLES Final Result Performing Organization Address City/[facility]/ZIP Co de Phone Number [facility] Department [place] [address] * Magnesium (04/06/2025 7:26 PM CDT) [facility] Magnesium 2.0 1.4 - 2.5 mg/dL Blood 04/06/2025 7:26 PM CDT 04/06/2025 7:35 PM CDT Odalys Stiles MD LAB BLOOD ORDERABLES Final Res ult Performing Organization Address [facility] Co de Phone Number [facility] [place] [address] * (ABNORMAL) Comprehensive metabolic panel (04/06/2025 7:26 PM CDT) [facility] Sodium 133(L) 135 - 145 mmol/L Potassium, pl 4.5 3.3 - 4.9 mmol/L [facility] Chloride 103 97 - 110 mmol/L [facility] CO2 23 22 - 32 mmol/L [facility] Anion gap 7 2 - 15 mmol/L [facility] BUN 14 6 - 25 mg/dL [facility] Creatinine 0.88 0.80 - 1.30 mg/dL [facility] Glucose 144 70 - 199 mg/dL [facility] Comment: Interpretive Data Fasting glucose >/= 126 [...] Current interpretive data was last revised 2022. Calcium 8.3(L) 8.5 - 10.3 mg/dL [facility] Bilirubin, total 0.4 0.1 - 1.2 mg/dL [facility] Protein, pl 5.8(L) 6.5 - 8.5 g/dL [facility] Albumin 3.1(L) 3.5 - 5.0 g/dL [facility] Alk phos 52 40 - 130 Units/L [facility] ALT 10 7 - 55 Units/L [facility] AST 12 10 - 50 Units/L [facility] Blood 04/06/2025 7:26 PM CDT 04/06/2025 7:35 PM CDT Mitul You ROLL PANNER LAB BLOOD ORDERABLES Final Result [facility] [place] [address] * CT Head Stealth WO Contrast (04/06/2025 6:07 AM CDT) Anatomical Region Laterality Modality Head and Neck N/A Computed Tomogra phy 04/06/2025 11:4 4 AM CDT Impressions 04/06/2025 3:19 PM CDT Stable postsurgical changes as detailed above with interval decrease in conspicuity of a thin right frontal cerebral convexity subdural hematoma. Dictated by: Robbie Rubin MD The radiology attending physician has personally reviewed this study, and had reviewed and/or edited this written report and agrees with it. Electronically signed by: Emanuel Martin M.D. Narrative 04/06/2025 3:19 PM CDT EXAMINATION: CT head without contrast HISTORY: Subdural hematoma follow-up TECHNIQUE: CT of the head was performed with images acquired from skull base to vertex without intravenous contrast. COMPARISON: CT 04/05/2025 FINDINGS: Postsurgical changes of left orbital exenteration, left partial maxillectomy, left parotidectomy, left orbital frontal craniectomy and duraplasty, and flap placement. Surgical drain seen in the partially imaged left neck and left face. There is a persistent thin right frontal cerebral convexity subdural hematoma measuring up to 2 mm decreased in conspicuity compared to prior. Persistent small volume pneumocephalus. Opacification of the residual left maxillary sinus and left sphenoid sinus. Ventricles are of normal size and morphology. No midline shift is present. The pinedo-white matter differentiation is normal. Right lens replacement. The visualized portions of the mastoids are normal. Scattered ill-defined hypodensities in the periventricular and subcortical white matter are nonspecific, however likely represent sequela chronic microvascular ischemic change. There is parenchymal volume loss. Intracranial atherosclerotic calcifications. Left basal ganglia chronic lacunar infarct. Procedure Note Emanuel Martin MD PhD - 04/06/2025 EXAMINATION: CT head without contrast HISTORY: Subdural hematoma follow-up TECHNIQUE: CT of the head was performed with images acquired from skull base to vertex without intravenous contrast. COMPARISON: CT 04/05/2025 FINDINGS: Postsurgical changes of left orbital exenteration, left partial maxillectomy, left parotidectomy, left orbital frontal craniectomy and duraplasty, and flap placement. Surgical drain seen in the partially imaged left neck and left face. There is a persistent thin right frontal cerebral convexity subdural hematoma measuring up to 2 mm decreased in conspicuity compared to prior. Persistent small volume pneumocephalus. Opacification of the residual left maxillary sinus and left sphenoid sinus. Ventricles are of normal size and morphology. No midline shift is present. The pinedo-white matter differentiation is normal. Right lens replacement. The visualized portions of the mastoids are normal. Scattered ill-defined hypodensities in the periventricular and subcortical white matter are nonspecific, however likely represent sequela chronic microvascular ischemic change. There is parenchymal volume loss. Intracranial atherosclerotic calcifications. Left basal ganglia chronic lacunar infarct. IMPRESSION: Stable postsurgical changes as detailed above with interval decrease in conspicuity of a thin right frontal cerebral convexity subdural hematoma. Dictated by: Robbie Rubin MD The radiology attending physician has personally reviewed this study, and had reviewed and/or edited this written report and agrees with it. Electronically signed by: Emanuel Martin M.D. Odalys Stiles MD IMG CT PROCEDURES Final Result * eGFR (04/06/2025 5:24 AM CDT) eGFR >90 >=60 mL/min/1. 73 m2 Comment: Interpretive Data [...] Current interpretive data was last reviewed 2021. Blood 04/06/2025 5:24 AM CDT 04/06/2025 5:41 AM CDT Odalys Stiles MD LAB BLOOD ORDERABLES Final Res ult [facility] Department [place] [address] * (ABNORMAL) Differential, auto (04/06/2025 5:24 AM CDT) Neutrophil abs 10.31(H) 1.50 - 6.50 K/cumm Imm gran abs 0.07 0.00 - 0.10 K/cumm [facility] Lymphocyte abs 1.13 0.80 - 3.30 K/cumm [facility] Monocyte abs 1.03(H) 0.20 - 0.80 K/cumm [facility] Eosinophil abs 0.00 0.00 - 0.50 K/cumm [facility] Basophil abs 0.01 0.00 - 0.10 K/cumm [facility] Neutrophil pct 82.1 % [facility] Comment: Interpretive Data Percent cell count reference ranges are not reported, since discordance with absolute values may lead to misinterpretation of CBC data. Current Interpretive Data was last revised on 2017. Imm gran pct 0.6 % [facility] Comment: Interpretive Data Percent cell count reference ranges are not reported, since discordance with absolute values may lead to misinterpretation of CBC data. Current Interpretive Data was last revised on 2017. Lymphocyte pct 9.0 % [facility] Comment: Interpretive Data Percent cell count reference ranges are not reported, since discordance with absolute values may lead to misinterpretation of CBC data. Current Interpretive Data was last revised on 2017. Monocyte pct 8.2 % [facility] Comment: Interpretive Data Percent cell count reference ranges are not reported, since discordance with absolute values may lead to misinterpretation of CBC data. Current Interpretive Data was last revised on 2017. Eosinophil pct 0.0 % [facility] Comment: Interpretive Data Percent cell count reference ranges are not reported, since discordance with absolute values may lead to misinterpretation of CBC data. Current Interpretive Data was last revised on 2017. Basophil pct 0.1 % [facility] Comment: Interpretive Data Percent cell count reference ranges are not reported, since discordance with absolute values may lead to misinterpretation of CBC data. Current Interpretive Data was last revised on 2017. Blood 04/06/2025 5:24 AM CDT 04/06/2025 5:41 AM CDT us Odalys Stiles MD LAB BLOOD ORDERABLES Final Res ult [facility] [place] [address] * (ABNORMAL) CBC with auto differential (04/06/2025 5:24 AM CDT) WBC 12.55(H) 3.80 - 9.90 K/cumm Hgb 9.5(L) 13.0 - 17.5 g/dL [facility] Hct 28.4(L) 38.9 - 50.3 % [facility] Plt 192 150 - 400 K/cumm [facility] MPV 9.1 9.1 - 12.3 fL [facility] RBC 2.91(L) 4.30 - 5.80 M/cumm [facility] MCV 97.6(H) 81.3 - 96.4 fL [facility] MCH 32.6 27.1 - 33.3 pg [facility] MCHC 33.5 32.3 - 35.7 g/dL [facility] RDW CV 13.7 11.1 - 14.9 % [facility] RDW SD 48.4(H) 35.7 - 48.1 fL [facility] NRBC abs 0.00 0.00 - 0.01 K/cumm [facility] Blood 04/06/2025 5:24 AM CDT 04/06/2025 5:41 AM CDT us Odalys Stiles MD LAB BLOOD ORDERABLES Final Res ult [facility] Department [place] [address] * (ABNORMAL) Basic metabolic panel (04/06/2025 5:24 AM CDT) [facility] Sodium 133(L) 135 - 145 mmol/L Potassium, pl 4.8 3.3 - 4.9 mmol/L [facility] Chloride 101 97 - 110 mmol/L [facility] CO2 21(L) 22 - 32 mmol/L [facility] Anion gap 11 2 - 15 mmol/L [facility] BUN 11 6 - 25 mg/dL [facility] Creatinine 0.79(L) 0.80 - 1.30 mg/dL [facility] Glucose 138 70 - 199 mg/dL [facility] Comment: Interpretive Data Fasting glucose >/= 126 [...] Current interpretive data was last revised 2022. Calcium 8.5 8.5 - 10.3 mg/dL [facility] Blood 04/06/2025 5:24 AM CDT 04/06/2025 5:41 AM CDT Odalys Stiles MD LAB BLOOD ORDERABLES Final Res ult [facility] Department [place] [address] * ECG 12 lead (04/05/2025 6:35 PM CDT) Pathologist [facility] Ventricular Rate EKG/Min 132 BPM [facility] Atrial Rate 132 BPM [facility] KS-Interval (MSEC) 52 ms [facility] QRS-Interval (MSEC) 78 ms [facility] QT-Interval (MSEC) 328 ms [facility] QTc 485 ms [facility] R [place] 88 degrees [facility] T [place] 0 degrees [facility] Diagnosis Atrial fibrillation with a rapid ventricular response Nonspecific ST and T wave abnormality Abnormal ECG When compared with ECG of 25-MAR-2025 15:59, Sinus rhythm has replaced Atrial fibrillation Vent. rate has increased BY 44 BPM rightward change in QRS axis Nonspecific T wave abnormality now evident in Inferior leads Confirmed by ENRIQUE LOZANO M.D ([id number]) on 04/08/2025 11:39:48 AM [facility] 04/05/2025 6:35 PM CDT 04/08/2025 11:39 AM CDT Odalys Stiles MD ECG ORDERABLES Final Result [facility] * CT Head Stealth WO Contrast (04/05/2025 6:24 PM CDT) Anatomical Region Laterality Modality Head and Neck N/A Computed Tomogra phy 04/05/2025 6:37 PM CDT Addenda Addendum by Mackenzie Jackson MD on 04/05/2025 6:54 PM CDT The results were discussed with Mj Deluna R.N. by Aliza Dennison, [employer] on 04/05/2025 6:46 PM. Edited by: Aliza Dennison Electronically signed by: Mackenzie Gutierrez M.D. Impressions 04/05/2025 6:37 PM CDT Postoperative changes as detailed above. There is mild intracranial pneumocephalus and interval development of 2 mm right frontal cerebral convexity subdural hematoma. Electronically signed by: Mackenzie Gutierrez M.D. Narrative 04/05/2025 6:37 PM CDT EXAMINATION: CT head without contrast HISTORY: Left orbital exenteration, partial maxillectomy, parotidectomy, orbitofrontal craniectomy and duraplasty, left vastus flap, for squamous cell carcinoma. TECHNIQUE: CT of the head was performed with images acquired from skull base to vertex without intravenous contrast. COMPARISON: Head CT dated 04/02/2025. FINDINGS: Postoperative changes as detailed above. There is mild intracranial pneumocephalus and interval development of 2 mm right frontal cerebral convexity subdural hematoma. Ventricles are of normal size and morphology. No mass effect or midline shift is present. Generalized parenchymal volume loss and mild microvascular ischemic disease with lacunar infarct at the left basal ganglia. The visualized portions of the mastoids are normal. Intracranial atherosclerotic disease. Procedure Note Mackenzie Jackson MD - 04/05/2025 EXAMINATION: CT head without contrast HISTORY: Left orbital exenteration, partial maxillectomy, parotidectomy, orbitofrontal craniectomy and duraplasty, left vastus flap, for squamous cell carcinoma. TECHNIQUE: CT of the head was performed with images acquired from skull base to vertex without intravenous contrast. COMPARISON: Head CT dated 04/02/2025. FINDINGS: Postoperative changes as detailed above. There is mild intracranial pneumocephalus and interval development of 2 mm right frontal cerebral convexity subdural hematoma. Ventricles are of normal size and morphology. No mass effect or midline shift is present. Generalized parenchymal volume loss and mild microvascular ischemic disease with lacunar infarct at the left basal ganglia. The visualized portions of the mastoids are normal. Intracranial atherosclerotic disease. IMPRESSION: Postoperative changes as detailed above. There is mild intracranial pneumocephalus and interval development of 2 mm right frontal cerebral convexity subdural hematoma. Electronically signed by: Mackenzie Gutierrez M.D. us Odalys Stiles MD IMG CT PROCEDURES Edited Resul t - Final * eGFR (04/05/2025 5:48 PM CDT) eGFR >90 >=60 mL/min/1. 73 m2 Comment: Interpretive Data [...] Current interpretive data was last reviewed 2021. Blood 04/05/2025 5:48 PM CDT 04/05/2025 6:08 PM CDT us Simón Gaytan MD LAB BLOOD ORDERABLES Final Result [facility] Department [place] [address] * (ABNORMAL) Differential, auto (04/05/2025 5:48 PM CDT) Neutrophil abs 9.60(H) 1.50 - 6.50 K/cumm Imm gran abs 0.05 0.00 - 0.10 K/cumm [facility] Lymphocyte abs 0.69(L) 0.80 - 3.30 K/cumm [facility] Monocyte abs 0.54 0.20 - 0.80 K/cumm [facility] Eosinophil abs 0.00 0.00 - 0.50 K/cumm [facility] Basophil abs 0.01 0.00 - 0.10 K/cumm [facility] Neutrophil pct 88.1 % [facility] Comment: Interpretive Data Percent cell count reference ranges are not reported, since discordance with absolute values may lead to misinterpretation of CBC data. Current Interpretive Data was last revised on 2017. Imm gran pct 0.5 % [facility] Comment: Interpretive Data Percent cell count reference ranges are not reported, since discordance with absolute values may lead to misinterpretation of CBC data. Current Interpretive Data was last revised on 2017. Lymphocyte pct 6.3 % [facility] Comment: Interpretive Data Percent cell count reference ranges are not reported, since discordance with absolute values may lead to misinterpretation of CBC data. Current Interpretive Data was last revised on 2017. Monocyte pct 5.0 % [facility] Comment: Interpretive Data Percent cell count reference ranges are not reported, since discordance with absolute values may lead to misinterpretation of CBC data. Current Interpretive Data was last revised on 2017. Eosinophil pct 0.0 % [facility] Comment: Interpretive Data Percent cell count reference ranges are not reported, since discordance with absolute values may lead to misinterpretation of CBC data. Current Interpretive Data was last revised on 2017. Basophil pct 0.1 % [facility] Comment: Interpretive Data Percent cell count reference ranges are not reported, since discordance with absolute values may lead to misinterpretation of CBC data. Current Interpretive Data was last revised on 2017. Blood 04/05/2025 5:48 PM CDT 04/05/2025 6:08 PM CDT us Simón Gaytan MD LAB BLOOD ORDERABLES Final Result Performing Organization Address [facility] Co de Phone Number [facility] Department [place] [address] * (ABNORMAL) CBC with auto differential (04/05/2025 5:48 PM CDT) Pathologist [facility] WBC 10.89(H) 3.80 - 9.90 K/cumm Hgb 10.4(L) 13.0 - 17.5 g/dL [facility] Hct 31.5(L) 38.9 - 50.3 % [facility] Plt 208 150 - 400 K/cumm [facility] MPV 8.9(L) 9.1 - 12.3 fL [facility] RBC 3.18(L) 4.30 - 5.80 M/cumm [facility] MCV 99.1(H) 81.3 - 96.4 fL [facility] MCH 32.7 27.1 - 33.3 pg [facility] MCHC 33.0 32.3 - 35.7 g/dL [facility] RDW CV 13.5 11.1 - 14.9 % [facility] RDW SD 49.2(H) 35.7 - 48.1 fL [facility] NRBC abs 0.00 0.00 - 0.01 K/cumm [facility] Blood 04/05/2025 5:48 PM CDT 04/05/2025 6:08 PM CDT us Simón Gaytan MD LAB BLOOD ORDERABLES Final Result Performing Organization Address City/[facility]/ZIP Co de Phone Number [facility] [place] [address] * aPTT (04/05/2025 5:48 PM CDT) Pathologist [facility] aPTT 30 28 - 38 sec Comment: Interpretive Data Heparin therapeutic range: 66.0 - 100.0 seconds. Range based on correlation with therapeutic heparin activity range of 0.3 - 0.7 Units/mL. Current interpretive data was last revised on 2023. Blood 04/05/2025 5:48 PM CDT 04/05/2025 5:54 PM CDT Simón Gaytan MD LAB BLOOD ORDERABLES Final Result Performing Organization Address [facility] de Phone Number [facility] [place] [address] * Protime-INR (04/05/2025 5:48 PM CDT) PT 12.9 9.7 - 13.0 sec INR 1.19 0.90 - 1.20 [facility] Comment: Interpretive data Oral anticoagulant therapeutic ranges: Venous thromboembolism prophylaxis or treatment: 2.0-3.0 CARDIOLOGY Standard range: 2.0-3.0 High-intensity range: 2.5-3.5 Refer to indication-specific guidelines for appropriate target ranges for prosthetic heart valve replacement. Current interpretive data was last revised on 2019. Blood 04/05/2025 5:48 PM CDT 04/05/2025 5:54 PM CDT Simón Gaytan MD LAB BLOOD ORDERABLES Final Result Performing Organization Address [facility] de Phone Number [facility] [place] [address] * Phosphorus (04/05/2025 5:48 PM CDT) Phosphorus, pl 4.1 2.3 - 4.5 mg/dL Blood 04/05/2025 5:48 PM CDT 04/05/2025 6:08 PM CDT Simón Gaytan MD LAB BLOOD ORDERABLES Final Result [facility] Department [place] [address] * Magnesium (04/05/2025 5:48 PM CDT) Pathologist [facility] Magnesium 1.5 1.4 - 2.5 mg/dL Blood 04/05/2025 5:48 PM CDT 04/05/2025 6:08 PM CDT Simón Gaytan MD LAB BLOOD ORDERABLES Final Result Performing Organization Address [facility] Co de Phone Number [facility] [place] [address] * (ABNORMAL) Comprehensive metabolic panel (04/05/2025 5:48 PM CDT) Pathologist [facility] Sodium 140 135 - 145 mmol/L Potassium, pl 5.1(H) 3.3 - 4.9 mmol/L [facility] Chloride 107 97 - 110 mmol/L [facility] Comment:Repeated and Verifie d CO2 22 22 - 32 mmol/L [facility] Anion gap 11 2 - 15 mmol/L [facility] BUN 9 6 - 25 mg/dL [facility] Creatinine 0.73(L) 0.80 - 1.30 mg/dL [facility] Glucose 133 70 - 199 mg/dL [facility] Comment: Interpretive Data Fasting glucose >/= 126 [...] Current interpretive data was last revised 2022. Calcium 8.5 8.5 - 10.3 mg/dL [facility] Bilirubin, total 0.9 0.1 - 1.2 mg/dL [facility] Protein, pl 5.8(L) 6.5 - 8.5 g/dL [facility] Albumin 3.1(L) 3.5 - 5.0 g/dL [facility] Alk phos 60 40 - 130 Units/L [facility] ALT 9 7 - 55 Units/L [facility] AST 15 10 - 50 Units/L [facility] Blood 04/05/2025 5:48 PM CDT 04/05/2025 6:08 PM CDT Simón Gaytan MD LAB BLOOD ORDERABLES Final Result [facility] Department [place] [address] * POCT glucose (04/05/2025 5:43 PM CDT) Glucose, POC 133 70 - 199 mg/dL Blood 04/05/2025 5:43 PM CDT 04/05/2025 5:43 PM CDT Odalys Stiles MD LAB POCT ORDERABLES - DEVICE F inal Result Performing Organization Address City/[facility]/ZIP Co de Phone Number [facility] Department [place] [address] * (ABNORMAL) POC Blood Gas and Chemistries, Arterial - (04/05/2025 3:46 PM CDT) pH, Art POC 7.28(L) 7.35 - 7.45 pCO2, Art POC 45 35 - 45 mmHg [facility] pO2, Art POC 149(H) 83 - 108 mmHg [facility] Na, POC 132(L) 135 - 145 mmol/L [facility] K POC 4.5 3.3 - 4.9 mmol/L [facility] Comment: Interpretive Data Not all point of care methods assess for hemolysis. Confirm with instrument and retest K+ if not consistent with clinical signs and symptoms. Current Interpretive Data was last revised on 2023. Cl, POC 104 97 - 110 mmol/L [facility] Ionized Ca, POC 4.76 4.50 - 5.10 mg/dL [facility] Glucose, POC 121 70 - 199 mg/dL [facility] Lactate POC 1.2 0.7 - 2.0 mmol/L [facility] SO2 (heather) arterial 100(H) 90 - 95 % [facility] Base excess, POC -5.5 mmol/L [facility] Hct, POC 34.0(L) 41.4 - 51.6 % [facility] Total Hb, POC 11.4(L) 13.8 - 17.2 g/dL [facility] Blood 04/05/2025 3:46 PM CDT 04/05/2025 3:46 PM CDT us Odalys Stiles MD LAB POCT ORDERABLES - DEVICE F inal Result [facility] [place] [address] * (ABNORMAL) POC Blood Gas and Chemistries, Arterial - (04/05/2025 12:29 PM CDT) pH, Art POC 7.41 7.35 - 7.45 pCO2, Art POC 33(L) 35 - 45 mmHg [facility] pO2, Art POC 152(H) 83 - 108 mmHg [facility] Na, POC 130(L) 135 - 145 mmol/L [facility] K POC 4.0 3.3 - 4.9 mmol/L [facility] Comment: Interpretive Data Not all point of care methods assess for hemolysis. Confirm with instrument and retest K+ if not consistent with clinical signs and symptoms. Current Interpretive Data was last revised on 2023. Cl, POC 100 97 - 110 mmol/L [facility] Ionized Ca, POC 4.38(L) 4.50 - 5.10 mg/dL [facility] Glucose, POC 106 70 - 199 mg/dL [facility] Lactate POC 1.2 0.7 - 2.0 mmol/L [facility] SO2 (heather) arterial 100(H) 90 - 95 % [facility] Base excess, POC -3.2 mmol/L [facility] Hct, POC 29.0(L) 41.4 - 51.6 % [facility] Total Hb, POC 9.6(L) 13.8 - 17.2 g/dL [facility] Blood 04/05/2025 12:2 9 PM CDT 04/05/2025 12:29 PM CDT us Odalys Stiles MD LAB POCT ORDERABLES - DEVICE F inal Result [facility] [place] [address] * (ABNORMAL) Aerobic and anaerobic culture and gram stain Abscess Sinus (04/05/2025 11:03 AM CDT) Direct Specimen Exam Stain: Moderate polymorphonuclear leukocytes seen. No organisms seen. Report Final Report: Rare Staphylococcus aureus Methicillin susceptible (MSSA) by penicillin binding protein 2a (PBP2a) testing. (.) [facility] Organism STAPHYLOCOCCUS AUREUS [facility] Abscess (Sinus) 04/05/2025 1 1:03 AM CDT 04/05/2025 12:53 PM CDT Narrative [facility] - 04/08/2025 12:02 PM CDT Left frontal Testing performed by [facility] Laboratory ([phone]) Specimens submitted from normally sterile body sites will have all bacterial morphotypes identified. Specimens that contain grossly mixed sheree and/or are from body sites that are not normally sterile will be examined for Staphylococcus aureus, Pseudomonas aeruginosa, beta-hemolytic strep, vancomycin-resistant Enterococcus, Bacteroides, Parabacteroides, Clostridium perfringens and fungus. If any of these are isolated, the organism will be reported. Current interpretive data was last revised on 2019. Organism Antibiotic Method Susceptibility Staphylococcus aureus Vancomycin INTERPRETATION Susceptible Staphylococcus aureus Trimethoprim with Sulfamethoxazole INTERPRETATION Susceptible Staphylococcus aureus Linezolid INTERPRETATION Susceptible Staphylococcus aureus Doxycycline INTERPRETATION Susceptible Staphylococcus aureus Clindamycin INTERPRETATION Susceptible Staphylococcus aureus Erythromycin INTERPRETATION Susceptible Staphylococcus aureus Oxacillin INTERPRETATION Susceptible Staphylococcus aureus Cefazolin INTERPRETATION Susceptible Staphylococcus aureus Ceftriaxone INTERPRETATION Susceptible us Odalys Stiles MD LAB MICROBIOLOGY - GENERAL ORD ERABLES Final Result [facility] [place] [address] * Surgical pathology (04/05/2025 9:31 AM CDT) Tissue (Neck) 04/05/2025 9:3 1 AM CDT Tissue specimen (specimen) (Neck) 04/05/2025 10:06 AM CDT Tissue specimen (specimen) (Neck) 04/05/2025 10:11 AM CDT Tissue specimen (specimen) (Neck) 04/05/2025 10:12 AM CDT Tissue specimen (specimen) (Neck) 04/05/2025 10:24 AM CDT Tissue specimen (specimen) (Neck) 04/05/2025 10:29 AM CDT Tissue specimen (specimen) (Brain, Resection) 04/05/2025 11:40 AM CDT Tissue specimen (specimen) (Brain, Resection) 04/05/2025 11:44 AM CDT Tissue specimen (specimen) (Brain, Resection) 04/05/2025 11:55 AM CDT Tissue specimen (specimen) (Neck) 04/05/2025 1:17 PM CDT Comment:Left Orbital Exenter ation And Partial Maxillectomy Tissue specimen (specimen) (Neck) 04/05/2025 1:55 PM CDT Tissue specimen (specimen) (Neck) 04/05/2025 2:04 PM CDT Tissue specimen (specimen) (Neck) 04/05/2025 2:20 PM CDT Tissue specimen (specimen) (Neck) 04/05/2025 2:29 PM CDT Narrative PATHOLOGY [facility] - 04/20/2025 9:41 AM CDT EPIC results best viewed via link to PDF [facility] [place] [address] Note to Patients: This report may contain a detailed description of human tissue sent by a health care provider to the laboratory for pathologic evaluation. The content of this report is essential for diagnosis and may provide important critical findings. This information may be unfamiliar to patients to review without a medical professional present. It is advised that the patient review this report in the presence of a health care provider who can answer questions and explain the details. SURGICAL PATHOLOGY REPORT FINAL WITH ADDENDUM Patient Name: CJ GALAVIZ Gender: Sherif : 1945 (Age: 79) Address: [address] [place] [id number] Hospital #: [id number] Taken:04/05/2025 Received:04/05/2025 Reported: 04/20/2025 Patient Type: [facility] Inpatient Service: Ear Nose Throat Location: [place] [address] Physician(s): Fidencio Gunter MD Diagnosis: J. 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 Left premaxillary soft tissue margin, excision (AFR1): - Fibroadipose tissue, negative for carcinoma B. Left maxillary sinus mucosal margin, excision (BFR1): - Squamous mucosa with focal surface atypia - Submucosa with chronic inflammation C. Sphenoid sinus mucosa margin, excision (CFR1): - Respiratory epithelium, negative for high-grade dysplasia or carcinoma D. Nasal septal margin, excision (DFR1): - Fibroconnective tissue and submucosal glands, negative for carcinoma E. Left temporalis margin, excision (EFR1): - Skeletal muscle and fibroadipose tissue, negative for carcinoma F. Right anterior medial orbit margin, excision (FFR1): - Skeletal muscle and fibroconnective tissue, negative for carcinoma G. Dura/ tumor, resection: - Squamous cell carcinoma involving dura H. Subdural tumor, excision (HFR1): - Meningioma I. Subdural tumor, excision: - Meningioma K. Parotid gland, left, parotidectomy: - Salivary gland tissue with no histopathologic abnormality - Six lymph nodes, negative for carcinoma (0/6) L. Lymph nodes, level 1B, dissection: - Three lymph nodes, negative for carcinoma (0/3) - Salivary gland tissue with no histopathologic abnormality M. Lymph nodes, left level 4, dissection: - Ten lymph nodes, negative for carcinoma (0/10) N. Lymph nodes, left level 2 and 3, dissection: - Twenty lymph nodes, negative for carcinoma (0/20) - Salivary gland tissue with no histopathologic abnormality [facility]/04/17/2025 10:16 By this signature, I attest that the above diagnosis is based upon my personal examination of the slides(and/or other material indicated in the diagnosis). Marina Mckeon MD, PhD Report Electronically Reviewed and Signed Out By Marina Mckeon MD, PhD 04/20/2025 09:41:22 Intraoperative Consultation: Frozen Section Diagnosis AFR1: Left premaxillary soft tissue margin - No evidence of malignancy By Yordan Bowers M.D., Smooth RuizOPaulo, Edin Massey, DO BFR1: Left maxillary sinus mucosal margin - Focal surface atypia, cannot exclude high grade dysplasia - No evidence of invasive carcinoma By Yordan Bowers M.D., Smooth RuizOPaulo, Edin Massey, DO CFR1: Sphenoid sinus mucosa margin - No evidence of high grade dysplasia or invasive carcinoma By Yordan Bowers M.D., Randa Ruiz.OPaulo, Edin Massey, DO DFR1: Nasal septal margin - No evidence of high grade dysplasia or invasive carcinoma By Yordan Bowers M.D., Randa Ruiz.OPaulo, Edin Massey, DO EFR1: Left temporalis margin - No evidence of invasive carcinoma By Yordan Bowers M.D., Smooth RuizOPaulo, Edin Massey, DO FFR1: Right anterior medial orbit margin - No evidence of invasive carcinoma By Yordan Bowers M.D., Deanna Griffith D.O., Edin Massey, HFR1. Subdural tumor (including AFR-TP1): - Spindle/meningothelial cell proliferation - Case was discussed with the surgical team and shown to Dr. Robbie Rowe, who concurs By David Wallace M.D., Duane Cr M.D., Ph.D. Gross Consultation A: Left premaxillary soft tissue margin Received fresh, labeled with patient identifiers and left premaxillary soft tissue margin is a 0.9 x 0.5 x 0.4 cm red-zelaya cauterized tissue. Entirely frozen and submitted within AFR1. Rest for permanents. By Yordan Bowers M.D., Deanna Griffith D.O., Edin Massey, B: Left maxillary sinus mucosal margin Received fresh are two pieces of tissue measuring 0.9 x 0.3 x 0.3 cm in aggregate. Entirely frozen as BFR1. By Yordan Bowers M.D., Deanna Griffith D.O., Edin Massey, C: Sphenoid sinus mucosa margin Received fresh are three pieces of tissue measuring 2.1 x 1.5 x 0.5cm in aggregate. Entirely frozen as CFR1. By Yoradn Bowers M.D., Deanna Griffith D.O., Edin Massey, D: Nasal septal margin Received fresh is a piece of tissue measuring 2.1 x 0.5 x 0.4 cm. Entirely frozen as DFR1. By Yordan Bowers M.D., Deanna Griffith D.O., Edin Massey, E: Left temporalis margin Received fresh, labeled with patient identifiers and left temporalis margin is a 1.0 x 1.0 x 0.3 cm red tissue. Entirely frozen and submitted within EFR1. Rest for permanents. By Yordan Bowers M.D., Deanna Griffith D.O., Edin Massey DO F: Right anterior medial orbit margin Received fresh, labeled with patient identifiers and right anterior medial orbit margin is a 0.7 x 0.4 x 0.3 cm red-zelaya tissue. Entirely frozen and submitted in FFR1. Rest for permanents. By Yordan Bowers M.D., Deanna Griffith D.O., Edin Massey DO H: Subdural tumor By David Wallace M.D., Duane Cr M.D., Ph.D. I personally examined the relevant preparation(s) or a microscopic image of the relevant preparation(s) for the specimen(s) while the surgical procedure was still underway and rendered or confirmed the diagnosis(es) Report Electronically reviewed and Signed out by Edin Massey DO (A - B - C - D - E - F) Duane Cr M.D., Ph.D. (H) Microscopic Description and Comment: Microscopic examination substantiates the above cited diagnosis. Permanent sections substantiate the frozen section diagnosis. For further characterization of the lesion in part HFR1, immunohistochemical stains (single antibody procedures with appropriate controls) are obtained. The lesional cells are positive for KS and Ki67 shows a proliferative index of 13.3%. The immunophenotype is consistent with meningioma. A KS immunostain is obtained for part I, and is also positive in the lesional cells. Microscopic description of the eye globe in J1+1 will be added in an addendum. Yao MercedesB.B.S. 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 Operative Procedure: free flap forearm, maxillectomy with orbital exenteration craniofacial resection, maxillectomy, dissection neck, parotidectomy, graft skin split-thickness, insertion lumbar drain, fat grafting abdomen Specimen(s) Received: A: Left premaxillary soft tissue margin B: Left maxillary sinus mucosal margin C: Sphenoid sinus mucosa margin D: Nasal septal margin E: Left temporalis margin F: Right anterior medial orbit margin G: Dura/ tumor H: Subdural tumor I: Subdural tumor J: Left orbital exenteration and partial maillectomy K: Left parotidectomy L: Level 1b M: Left level 4 N: Left level 2 and 3 Gross Description: Received in 14 formalin jars labeled with the patient's identifiers. A. Labeled left premaxillary soft tissue margin is a single cassette with frozen section remnant labeled with patient identifiers and AFR1. The cassette is submitted for processing. Jar 0 B. Labeled left maxillary sinus mucosal margin is a single cassette with frozen section remnant labeled with the patient identifiers and BFR1. The cassette is submitted for processing. Jar 0 C. Labeled sphenoid sinus mucosa margin is a single cassette with frozen section remnant labeled with patient identifiers and CFR1. The cassette is submitted for processing. Jar 0 D. Labeled nasal septal margin is a single cassette with frozen section remnant labeled with the patient identifiers and DFR1. The cassette is submitted for processing. Jar 0 E. Labeled left temporalis margin is a single cassette with frozen section remnant labeled with patient identifiers and EFR1. The cassette is submitted for processing. Jar 0 F. Labeled right anterior medial orbit margin is a single cassette with frozen section remnant labeled with patient identifiers and FFR1. The cassette is submitted for processing. Jar 0 G. Labeled Dura/tumor is a portion of dura 4.1 x 3.6 x 0.6 cm. A gross photograph is taken. Also in the containers is additional similar appearing fragment (1.6 x 0.5 x 0.4 cm). The dura is zelaya-pinedo with dark brown areas and 0.2 x 0.2 cm white firm nodule on the surface. The dura is a thickness of 0.2-0.5 cm. The opposite side of the specimen shows a dark pinedo papillary lesion completely covering the surface, with a thickness of up to 0.8 cm. The specimen is serially sectioned showing ill-defined area was yellow-white soft necrotic material, with areas of calcification. Entirely submitted in G1 through G6 (nodule in G1). Jar 0. H. Labeled subdural tumor is a single cassette with frozen section remnant labeled with the patient identifiers and HFR1. The cassette is submitted for processing. Jar 0 I. Labeled subdural tumor are multiple unoriented fragments of zelaya-brown to red- brown tissue (1.9 x 1.5 x 0.3 cm in aggregate). Entirely submitted in I1. Jar 0. J. Labeled left orbital exenteration and partial maxillectomy is an orbital exenteration specimen measuring 0 7.8 x 6.3 x 2.6 cm. The specimen consists of the orbit and orbital soft tissue, medial canthus, muscle grossly consistent with frontalis, and maxillary bone. Also in the container are multiple fragments of putative tumor, bone, soft tissue and fat (6.5 x 5.1 x 1.4 cm in aggregate). The eye globe is removed, examined and described separately: The eye was enucleated out of the remainder of the exenteration specimen by the ophthalmic pathology service (Dr. Skaggs) on 04/08/2025, using standard enucleation techniques, and was placed in a separate formalin jar for additional fixation. It was removed from fixative on 04/09/2025. It is a left eye measuring 25 x 25 x 24 mm, with 9 mm of optic nerve. The cornea appears clear. No definite episcleral lesions are identified. The globe is opened horizontally, with the inferior cut made first. A 1-piece posterior chamber-style lens implant is identified and is now removed, along with some attached transparent putative lens capsule. The intraocular contents otherwise appear unremarkable. The pupil-optic nerve section is 5 mm thick and is placed inferior side down into a cassette labeled J1+1. A long stitch is in place in the superior eyelid. The eyelids (4.0 x 0.5 cm) show thin light brown hairs. The area of the medial canthus is firm (approximately 4.2 x 1.6 x 2.0 cm). The anterior and posterior surfaces show pinedo-zelaya firm tumor involvement along the superior, lateral and medial margins. The eyelids /eyelids skin margin, the inferior maxillary bone margin are grossly uninvolved. There is a 2.5 x 1.8 cm portion of firm pinedo white skin overlying the medial canthus. The posterior aspect of the orbit shows a firm pinedo yellow mass, continuous with the area of the medial canthus (5.1 x 3.2 cm x 2.2 cm combined). The specimen is inked as follows: Green-anterior, black-posterior, blue-medial, orange-lateral. A photograph of the inked specimen is taken. The soft tissue, bone and skin margins are taken (see section map). The specimen is sectioned from medial to lateral. The area from the medial canthus to the most medial aspect of the specimen is decalcified (decal two) en block. The remainder of the specimen shows an infiltrative firm pinedo white mass involving the posterior orbit and abutting the posterior soft tissue margin as noted previously. The tumor measures 0.8 cm from the orbital conjunctiva. Post acid decalcification, the medial aspect of the specimen is sectioned from medial to lateral into four slices. Additional photographs are taken. The cross- sections show firm white-pinedo fibrotic tissue with brown areas consistent with hemorrhage, abutting the green-inked anterior soft tissue and black-inked posterior soft tissue margin. [employer] sections submitted. J1 Orbital soft tissue J1+1 Eye globe J2-J3 Tumor fragments J4 Superior soft tissue margin, perpendicular J5 Inferior soft tissue margin, shaved J6 Superior lateral soft tissue margin, perpendicular J7 Inferior lateral soft tissue margin, perpendicular J8 Superior palpebral skin margin, shaved J9 Inferior palpebral skin margin, shaved J10 Superior medial soft tissue margin, perpendicular J11 Inferior medial soft tissue margin, perpendicular J12 Inferior maxillary margin, shaved (decal two) J13-J14 Tumor in relation to posterior orbit J15 Tumor in relation to posterior soft tissue margin J16-J28 Decalcified medial aspect of specimen, see section map (decal two) Jar 1. K. Labeled left parotidectomy is a zelaya-brown portion of lobulated tissue (32.64 g, 7.0 x 3.7 x 4.0 cm). The specimen is unoriented. The external surface is inked black. Serial sectioning shows a yellow orange lobulated parenchyma. A 1.5 cm lymph node is seen near the surface, with a 0.3 cm focus concerning for metastatic disease. A 1.2 cm lymph node is grossly unremarkable. There are four additional matted lymph nodes 0.4-0.6 cm in greatest dimension. One lymph node is grossly positive for metastatic disease, up to 0.6 cm in greatest dimension. Co Founder And Director sections submitted. K1-K2 One lymph node, serially sectioned K3-K4 Cross-sections of four matted lymph nodes K5 One lymph node, serially sectioned K6-K7 Co Founder And Director sections of parotid gland Jar 1. L. Labeled level 1B are two fragments of yellow lobular fibroadipose tissue (4.5 x 2.6 x 0.7 cm, 2.0 x 1.5 x 0.7 cm). Dissection and close inspection reveals two lymph nodes, 2.0 x 1.4 x 1.0 cm and 1.2 x 0.8 x 0.5 cm. The larger lymph node shows firm white-pinedo cut surface, possibly consistent with metastatic disease (1.1 cm in greatest dimension) . No extranodal extension is grossly identified. Entirely submitted. L1 One lymph node, bisected L2-L3 One lymph node, serially sectioned (suspicious for metastasis) L4-L6 Remaining fibroadipose tissue M. Labeled left level 4 are multiple fragments of yellow lobulated fibroadipose tissue (4.2 x 4.2 x 1.9 cm in aggregate). Dissection and close inspection reveals 11 lymph nodes ranging from 0.5-1.4 cm in greatest dimension. Entirely submitted. M1 One lymph node, bisected M2 Two lymph nodes, intact M3 Two lymph nodes, intact M4 Three lymph nodes, intact M5 Three lymph nodes, intact M6-M8 Remaining fibroadipose tissue Jar 0. N. Labeled left level 2 and 3 are multiple fragments of pinedo yellow lobulated fibroadipose tissue (7.0 x 6.2 x 0.9 cm in aggregate). Dissection and close inspection reveals 16 nodes ranging from 0.1 cm to 1.5 cm in greatest dimension. Entirely submitted. N1 One lymph node, bisected N2 Two lymph nodes, intact N3 Four lymph nodes, intact N4 Four lymph nodes, intact N5 Three lymph nodes, intact N6 One lymph node, bisected N7-N12 Remaining fibroadipose tissue Jar 0. ba04/08/2025 10:18 Gross Resident:Beau Mercedes PA(s): YOUSUF Conway ([facility]) Beau Mercedes CANCER CASE SUMMARY FOR TUMORS OF NASAL CAVITY AND PARANASAL SINUSES: Procedure: Maxillectomy with orbital exenteration Tumor site: Nasal septum Paranasal sinus(es), ethmoid Paranasal sinus(es), frontal orbit Tumor laterality: Left Tumor focality: Unifocal Tumor size: Cannot be determined at least 5.1 cm (tumor was removed in fragments) Histologic type: Squamous cell carcinoma, keratinizing Histologic grade: G2: Moderately differentiated Margins (select all that apply): Margins uninvolved by invasive carcinoma Distance from closest margin Lymphovascular Invasion: Present Perineural invasion: Not identified Regional Lymph Nodes: Number of Lymph Nodes Involved: 0 Number of Lymph Nodes Examined: 39 Primary tumor (pT): pT4b: Very advanced local disease. Tumor invades any of the following: orbital apex, dura, brain, middle cranial fossa, cranial nerves other than maxillary division of trigeminal nerve (V2), nasopharynx, or clivus pN0: No regional lymph node metastasis Additional pathological studies: The pathologic stage assigned here should be regarded as provisional, and may change after integration of clincal data not provided with this specimen. clinical data not provided with this specimen. NasalCavityParanasalSinus 4.0.0.1 By this signature, I attest that the above diagnosis is based upon my personal examination of the slides(and/or other material). Addenda/Procedures Addendum Ordered:04/26/2025Status:Signed OutAddendum Complete:04/26/2025y:Jordon Skaggs M.D.Addendum Signed Out:04/30/2025 Addendum Comment EYE: Clinical History: The clinical records were reviewed specifically to locate any ocular history. The patient was referred from the [facility], but it is unclear whether he was seen by Ophthalmology there, and no ophthalmic evaluation was performed here at our institution. 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 The patient quit smoking in 2002. He presented here complaining of a mass adjacent to the left medial canthus, which he began noticing about six months prior, with gradual onset of left-sided proptosis, decreased ocular motility, and two months of left-sided upper eyelid ptosis and some diminishment in vision OS. Imaging studies revealed a mass centered in the left nasal cavity extending to the left orbit, left frontal sinus, and bifrontal pachymeninges, with the orbital invasion located in the superonasal portion of the orbit, with associated mass effect on the left medial and superior rectus muscles, deviation of the optic nerve, and proptosis. Microscopic Description: H&E-stained sections from the eye specimen (block J1+1) reveal focal bullous keratopathy with some areas of erosion that may be artifactual. An oblique peripheral corneal stromal scar is noted on one side, consistent with a prior incision from cataract surgery. A focus of inner scleral calcification is observed in the vicinity of the insertion site of an extraocular muscle, consistent with an aging/degenerative change. 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 Several lymphoid aggregates are identified in the posterior episclera, within the soft tissue posterior to the equator and adjacent to the optic nerve and in the interstitium of extraocular muscle, but no tumor is identified in this specimen. 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 By this signature, I attest that the above diagnosis is based upon my personal examination of the slides(and/or other material indicated in the diagnosis). Jordon Skaggs M.D.Report Electronically Reviewed and Signed Out By Jordon Skaggs M.D. 04/30/2025 11:15:56Arcelia Moses M.D. The performance characteristics of some immunohistochemical stains, fluorescence in-situ hybridization tests and immunophenotyping by flow cytometry cited in this report (if any) were determined by the Surgical Pathology and Flow Cytometry Departments at [facility] as part of an ongoing quality assurance assistant program and in compliance with federally mandated regulations drawn from the Clinical Laboratory Improvement Act of 1988 (CLIA '88). Some of these tests rely on the use of analyte specific reagents and are subject to specific labeling requirements by the US Food and Drug Administration. Such diagnostic tests may only be performed in a facility that is certified by the Department of Health and Human Services as a high complexity laboratory under CLIA '88. The FDA has determined that such clearance or approval is not necessary. This test is used for clinical purposes. It should not be regarded as investigational or for research. Nevertheless, federal rules concerning the medical use of analyte specific reagents require that the following disclaimer be attached to the report: This test was developed and its performance characteristics determined by the Surgical Pathology and Flow Cytometry Departments of [facility]. It has not been cleared or approved by the U. S. Food and Drug Administration. IMAGES AND SCANNED DOCUMENTS, IF INCLUDED, ONLY VIEWABLE IN PDF VERSION OF REPORT Odalys Stiles MD LAB PATHOLOGY ORDERABLES Final Result PATHOLOGY [facility] [address] [facility], [place] [phone] * (ABNORMAL) POC Blood Gas and Chemistries, Arterial - (04/05/2025 9:17 AM CDT) pH, Art POC 7.37 7.35 - 7.45 pCO2, Art POC 40 35 - 45 mmHg [facility] pO2, Art POC 193(H) 83 - 108 mmHg [facility] Na, POC 131(L) 135 - 145 mmol/L [facility] K POC 3.6 3.3 - 4.9 mmol/L [facility] Comment: Interpretive Data Not all point of care methods assess for hemolysis. Confirm with instrument and retest K+ if not consistent with clinical signs and symptoms. Current Interpretive Data was last revised on 2023. Ionized Ca, POC 4.47(L) 4.50 - 5.10 mg/dL [facility] Glucose, POC 102 70 - 199 mg/dL [facility] Lactate POC 1.4 0.7 - 2.0 mmol/L [facility] SO2 (heather) arterial 100(H) 90 - 95 % [facility] Base excess, POC -2.0 mmol/L [facility] Hct, POC 36.0(L) 41.4 - 51.6 % [facility] Total Hb, POC 12.1(L) 13.8 - 17.2 g/dL [facility] Blood 04/05/2025 9:17 AM CDT 04/05/2025 9:17 AM CDT us Odalys Stiles MD LAB POCT ORDERABLES - DEVICE F inal Result [facility] [address] [facility] Department [place] [address] * Peripheral IV Catheter (04/05/2025 9:09 AM CDT) Narrative Michael Richard MD - 04/05/2025 9:09 AM CDT Michael Richard MD 04/05/2025 1:16 PM Peripheral IV Catheter Patient location: OR End time: 04/05/2025 8:08 AM Staff: Supervising provider: Landon Craft MD Placed by: Resident: Michael Richard MD Preprocedure prep: Prep solution: alcohol PPE: gloves and provider hat/mask PIV line: Laterality: right Site: forearm Catheter size: 16 g Technique: anatomical landmarks, direct visualization and palpatation Procedure details: good blood return and occlusive dressing applied Number of attempts: 1 Assessment: Events: patient tolerated procedure well with no complications us Landon Craft MD ANESTHESIA ORDERABLES Edit ed Result - Final * Arterial Line (04/05/2025 9:08 AM CDT) Narrative Michael Richard MD - 04/05/2025 9:08 AM CDT Michael Richard MD 04/05/2025 9:09 AM Arterial Line Patient location: OR End time: 04/05/2025 8:04 AM Indication: continuous blood pressure monitoring and blood sampling needed Ultrasound assisted: yes Staff: Supervising provider: Landon Craft MD Placed by: Resident: Michael Richard MD Procedure prep: Prep solution: chlorhexadine/alcohol Prep: provider hat/mask, sterile gloves, sterile drape and sterile probe cover Arterial line: Catheter size: 20 gauge Catheter length: 1 and 3/4 inch Catheter type: angiocath Seldinger technique: no Laterality: right Site: radial artery Line secured: tape and Tegaderm Results: good blood return and good waveform Number of attempts: 1 Assessment: Events: patient tolerated procedure well with no complications us Landon Craft MD ANESTHESIA ORDERABLES Veronika l Result * Airway (04/05/2025 9:08 AM CDT) Narrative Michael Richard MD - 04/05/2025 9:08 AM CDT Michael Richard MD 04/05/2025 9:08 AM Airway Patient location: OR Urgency: elective Date/time: 04/05/2025 7:47 AM Indications for airway management: airway protection and anesthesia Difficult airway: no Staff: Supervising provider: Landon Craft MD Placed by: Resident: Michael Richard MD Emergent airway documentation: Risks and benefits discussed: yes Consent obtained: yes Consent given by: patient Airway prep: Preoxygenated: yes Patient position: sniffing Mask difficulty assessment: 0 - not attempted Spontaneous ventilation during airway: absent Sedation level during airway: GA Final airway details: Final airway type: endotracheal airway Tube type: ETT ETT size: 8.0 mm Cuffed: yes Technique used for successful ETT placement: video laryngoscopy Devices/Methods used in placement: stylet Insertion site: oral Blade type: Travon Video blade type: Melvin Blade size: 4 Cormack-Lehane (direct): grade I - full view of glottis Cormack-Lehane (video): grade I - full view of glottis Initial cuff pressure: 30 cm H2O Cuff volume: 5 mL Cuff inflated with: air ETT to lips: 22 cm Placement verified by: auscultation and CO2 detection Airway secured with: silk tape Number of attempts: 1 Planned trial extubation: yes us Landon Bjorn Craft MD ANESTHESIA ORDERABLES Veronika anjel Result * eGFR (04/05/2025 6:25 AM CDT) eGFR 90 >=60 mL/min/1. 73 m2 Comment: Interpretive Data [...] Current interpretive data was last reviewed 2021. Blood 04/05/2025 6:25 AM CDT 04/05/2025 6:39 AM CDT Odalys Stiles MD LAB BLOOD ORDERABLES Final Res ult Performing Organization Address [facility] de Phone Number [facility] [place] [address] * Check Sample (04/05/2025 6:25 AM CDT) ABO Rh A Positive [facility] OTHER 04/05/2025 6:25 AM CDT 04/05/2025 6:42 AM CDT Odalys Stiles MD LAB BLOOD ORDERABLES Final Res ult Performing Organization Address [facility] de Phone Number [facility] [place] [address] [facility] * aPTT (04/05/2025 6:25 AM CDT) aPTT 33 28 - 38 sec Comment: Interpretive Data Heparin therapeutic range: 66.0 - 100.0 seconds. Range based on correlation with therapeutic heparin activity range of 0.3 - 0.7 Units/mL. Current interpretive data was last revised on 2023. Blood 04/05/2025 6:25 AM CDT 04/05/2025 6:43 AM CDT Odalys Stiles MD LAB BLOOD ORDERABLES Final Res ult Performing Organization Address [facility] de Phone Number [facility] [place] [address] * Protime-INR (04/05/2025 6:25 AM CDT) PT 12.5 9.7 - 13.0 sec INR 1.15 0.90 - 1.20 [facility] Comment: Interpretive data Oral anticoagulant therapeutic ranges: Venous thromboembolism prophylaxis or treatment: 2.0-3.0 CARDIOLOGY Standard range: 2.0-3.0 High-intensity range: 2.5-3.5 Refer to indication-specific guidelines for appropriate target ranges for prosthetic heart valve replacement. Current interpretive data was last revised on 2019. Blood 04/05/2025 6:25 AM CDT 04/05/2025 6:43 AM CDT Odalys Stiles MD LAB BLOOD ORDERABLES Final Res ult Performing Organization Address City/[facility]/ZIP Co de Phone Number [facility] Department [place] [address] * (ABNORMAL) CBC without differential (04/05/2025 6:25 AM CDT) WBC 4.93 3.80 - 9.90 K/cumm Hgb 12.3(L) 13.0 - 17.5 g/dL [facility] Hct 35.9(L) 38.9 - 50.3 % [facility] Plt 197 150 - 400 K/cumm [facility] MPV 9.0(L) 9.1 - 12.3 fL [facility] RBC 3.77(L) 4.30 - 5.80 M/cumm [facility] MCV 95.2 81.3 - 96.4 fL [facility] MCH 32.6 27.1 - 33.3 pg [facility] MCHC 34.3 32.3 - 35.7 g/dL [facility] RDW CV 13.2 11.1 - 14.9 % [facility] RDW SD 46.4 35.7 - 48.1 fL [facility] NRBC abs 0.00 0.00 - 0.01 K/cumm [facility] Blood 04/05/2025 6:25 AM CDT 04/05/2025 6:39 AM CDT Odalys Stiles MD LAB BLOOD ORDERABLES Final Res ult Performing Organization Address City/[facility]/ZIP Co de Phone Number [facility] Department [place] [address] * (ABNORMAL) Basic metabolic panel (04/05/2025 6:25 AM CDT) Sodium 133(L) 135 - 145 mmol/L Potassium, pl 4.1 3.3 - 4.9 mmol/L [facility] Chloride 95(L) 97 - 110 mmol/L [facility] CO2 26 22 - 32 mmol/L [facility] Anion gap 12 2 - 15 mmol/L [facility] BUN 12 6 - 25 mg/dL [facility] Creatinine 0.84 0.80 - 1.30 mg/dL [facility] Glucose 107 70 - 199 mg/dL [facility] Comment: Interpretive Data Fasting glucose >/= 126 [...] Current interpretive data was last revised 2022. Calcium 9.5 8.5 - 10.3 mg/dL [facility] Blood 04/05/2025 6:25 AM CDT 04/05/2025 6:39 AM CDT us Odalys Stiles MD LAB BLOOD ORDERABLES Final Res ult [facility] [address] [facility] Department [place] [address] * (ABNORMAL) Urinalysis reflex to microscopic (04/05/2025 6:10 AM CDT) Pathologist [facility] Color, ur Yellow Yellow Clarity, ur Clear Clear [facility] Specific gravity, ur 1.031(H) 1.003 - 1.030 [facility] pH, urine 6.0 [facility] Comment: Interpretive Data U rine pH is affected by diet, medications, systemic acid-base disturbances, and renal tubular function. pH may affect urinary stone formation. For example, urine pH below 6.0 may help reduce the tendency for calcium phosphate stones and pH greater than 6.0 may reduce the tendency for uric acid stone formation. Source: [facility] [employer] Current Interpretive Data was last revised on 2017 Protein, ur ql Trace Negative [facility] Glucose, ur ql Negative Negative [facility] Ketones, ur Negative Negative [facility] Bilirubin, ur Negative Negative [facility] Blood, ur Negative Negative [facility] Urobilinogen, ur 2.0(A) <2.0 mg/dL [facility] Nitrite, ur Negative Negative [facility] Leukocyte esterase, ur Negative Negative [facility] UA reflex comment Reflex conditions for microscopic UA not met. [facility] Urine 04/05/2025 6:10 AM CDT 04/05/2025 6:32 AM CDT us Odalys Stiles MD LAB URINE ORDERABLES Final Res ult [facility] [address] [facility] Department [place] [address] * CT Head Stealth WO Contrast (04/02/2025 2:36 PM CDT) Anatomical Region Laterality Modality Head and Neck N/A Computed Tomogra phy 04/02/2025 4:22 PM CDT Impressions 04/02/2025 5:17 PM CDT There is increased size of the mass centered at the left ethmoid sinus with aggressive features, with most focal area of increased size within the left supraorbital region with mass effect on the left globe. Overall unchanged erosion of the left frontal bone and left sinuses with intracranial extension. No CT evidence of intraparenchymal involvement. Left parotid lymphadenopathy. Dictated by: Chris Stewart M.D. The radiology attending physician has personally reviewed this study, and had reviewed and/or edited this written report and agrees with it. Electronically signed by: Mery Hunter M.D. 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 TECHNIQUE: CT of the head was performed with images acquired from skull base to vertex without intravenous contrast. COMPARISON: MRI brain from earlier the same day. Outside CT dated 02/14/2025 and outside MRI dated 02/26/2025. FINDINGS: Heterogeneous mass centered within the left ethmoid sinus with extension anterolaterally to the left orbit with encasement of the left medial rectus, superior rectus and oblique rectus muscles as well as the left optic nerve. There is increased size of the supraorbital component in comparison to 02/14/2025 CT with mass effect on the globe. There is further destruction of the left frontal sinus medial to the nasal cavity, lateral frontal bone, left nasal bone, nasal septum and left lamina papyracea. There is involvement of the left lacrimal fossa. There is unchanged appearance of the left anterior cranial fossa with suggestion of intracranial extension, however there is still a perceptible CSF cleft suggesting the brain parenchyma spared. There is mild left-sided proptosis. Bilateral lens replacements are noted. Enlarged left parotid lymph nodes. There is no acute intracranial hemorrhage. Ventricles are of normal size and morphology. No mass effect or midline shift is present. The pinedo-white matter differentiation is normal. The visualized portions of the mastoids are normal. 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 TECHNIQUE: CT of the head was performed with images acquired from skull base to vertex without intravenous contrast. COMPARISON: MRI brain from earlier the same day. Outside CT dated 02/14/2025 and outside MRI dated 02/26/2025. FINDINGS: Heterogeneous mass centered within the left ethmoid sinus with extension anterolaterally to the left orbit with encasement of the left medial rectus, superior rectus and oblique rectus muscles as well as the left optic nerve. There is increased size of the supraorbital component in comparison to 02/14/2025 CT with mass effect on the globe. There is further destruction of the left frontal sinus medial to the nasal cavity, lateral frontal bone, left nasal bone, nasal septum and left lamina papyracea. There is involvement of the left lacrimal fossa. There is unchanged appearance of the left anterior cranial fossa with suggestion of intracranial extension, however there is still a perceptible CSF cleft suggesting the brain parenchyma spared. There is mild left-sided proptosis. Bilateral lens replacements are noted. Enlarged left parotid lymph nodes. There is no acute intracranial hemorrhage. Ventricles are of normal size and morphology. No mass effect or midline shift is present. The pinedo-white matter differentiation is normal. The visualized portions of the mastoids are normal. IMPRESSION: There is increased size of the mass centered at the left ethmoid sinus with aggressive features, with most focal area of increased size within the left supraorbital region with mass effect on the left globe. Overall unchanged erosion of the left frontal bone and left sinuses with intracranial extension. No CT evidence of intraparenchymal involvement. Left parotid lymphadenopathy. Dictated by: Chris Stewart M.D. The radiology attending physician has personally reviewed this study, and had reviewed and/or edited this written report and agrees with it. Electronically signed by: Mery Hunter M.D. us Austin Apple MD IMG CT PROCEDURES Final R esult * MRI Brain Stealth W WO Contrast (04/02/2025 1:30 PM CDT) Anatomical Region Laterality Modality Head and Neck N/A Magnetic Resonan ce 04/02/2025 4:17 PM CDT Impressions 04/03/2025 1:25 PM CDT 1. Grossly unchanged mass centered in the left nasal cavity as described above. No MR evidence of intraparenchymal extension. Dictated by: Lisa Blanco M.D. The radiology attending physician has personally reviewed this study, and had reviewed and/or edited this written report and agrees with it. Electronically signed by: Jesus Rivera M.D. 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 MRI was performed for pretreatment planning. TECHNIQUE: Multiplanar multi-weighted MRI of the brain and brainstem was performed without and with intravenous contrast using the stereotactic localization protocol. Contrast information: 20 mL Gadoterate Meglumine IV COMPARISON: 02/26/2025 FINDINGS: Grossly unchanged T2 heterogeneous, diffusion restricting, heterogeneously enhancing mass centered in the left nasal cavity with extension into the left orbit, frontal sinus, and adjacent bifrontal pachymeninges. No intraparenchymal extension identified. The lesion is causing mass effect on the left medial rectus, deviation of the optic nerve to the left and proptosis of the left globe. The osseous destruction is better appreciated on CT. These findings are not substantially changed compared to the prior study. Scattered small foci of T2 prolongation in the periventricular and subcortical white matter are nonspecific, likely on the basis of chronic small vessel ischemic change. There are chronic lacunar infarcts in the left lentiform nucleus and jones radiata. The scalp and calvarium are normal. The superior sagittal sinus demonstrates normal venous flow. The corpus callosum is normal in shape and signal intensity. The posterior fossa is unremarkable. The pituitary and sella are normal. The brainstem and craniocervical junction are unremarkable. The susceptibility weighted sequences reveal no evidence of acute or chronic hemorrhage. The ventricles are normal in size and position without evidence of hydrocephalus. The visualized portions of the mastoids are unremarkable. Bilateral lens replacements. Normal flow voids are demonstrated in the carotid arteries and basilar artery. 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 MRI was performed for pretreatment planning. TECHNIQUE: Multiplanar multi-weighted MRI of the brain and brainstem was performed without and with intravenous contrast using the stereotactic localization protocol. Contrast information: 20 mL Gadoterate Meglumine IV COMPARISON: 02/26/2025 FINDINGS: Grossly unchanged T2 heterogeneous, diffusion restricting, heterogeneously enhancing mass centered in the left nasal cavity with extension into the left orbit, frontal sinus, and adjacent bifrontal pachymeninges. No intraparenchymal extension identified. The lesion is causing mass effect on the left medial rectus, deviation of the optic nerve to the left and proptosis of the left globe. The osseous destruction is better appreciated on CT. These findings are not substantially changed compared to the prior study. Scattered small foci of T2 prolongation in the periventricular and subcortical white matter are nonspecific, likely on the basis of chronic small vessel ischemic change. There are chronic lacunar infarcts in the left lentiform nucleus and jones radiata. The scalp and calvarium are normal. The superior sagittal sinus demonstrates normal venous flow. The corpus callosum is normal in shape and signal intensity. The posterior fossa is unremarkable. The pituitary and sella are normal. The brainstem and craniocervical junction are unremarkable. The susceptibility weighted sequences reveal no evidence of acute or chronic hemorrhage. The ventricles are normal in size and position without evidence of hydrocephalus. The visualized portions of the mastoids are unremarkable. Bilateral lens replacements. Normal flow voids are demonstrated in the carotid arteries and basilar artery. IMPRESSION: 1. Grossly unchanged mass centered in the left nasal cavity as described above. No MR evidence of intraparenchymal extension. Dictated by: Lisa Blanco M.D. The radiology attending physician has personally reviewed this study, and had reviewed and/or edited this written report and agrees with it. Electronically signed by: Jesus Rivera M.D. Austin Apple MD IMG MRI PROCEDURES Final Result * TYPE AND SCREEN 14 DAY (03/25/2025 4:44 PM CDT) ABO Rh A Positive Lidia, indirect Negative [facility] Blood 03/25/2025 4:44 PM CDT 03/25/2025 5:19 PM CDT [facility]ative [facility] - 03/25/2025 6:05 PM CDT Is this test being ordered in advance for a procedure?->Yes Expected date of procedure:->04/05/25 Has the patient been transfused in the past 3 months?->No Deanna Mathews NP LAB BLOOD BANK TEST ORD ERABLES Final Result [facility] Department [place] [address] * eGFR (03/25/2025 4:44 PM CDT) Pathologist [facility] eGFR 90 >=60 mL/min/1. 73 m2 Comment: Interpretive Data [...] Current interpretive data was last reviewed 2021. Blood 03/25/2025 4:44 PM CDT 03/25/2025 5:20 PM CDT us Odalys Stiles MD LAB BLOOD ORDERABLES Final Res ult [facility] Department [place] [address] * Differential, auto (03/25/2025 4:44 PM CDT) [facility] Neutrophil abs 2.14 1.50 - 6.50 K/cumm Imm gran abs 0.00 0.00 - 0.10 K/cumm [facility] Lymphocyte abs 1.80 0.80 - 3.30 K/cumm [facility] Monocyte abs 0.53 0.20 - 0.80 K/cumm [facility] Eosinophil abs 0.18 0.00 - 0.50 K/cumm [facility] Basophil abs 0.03 0.00 - 0.10 K/cumm [facility] Neutrophil pct 45.8 % [facility] Comment: Interpretive Data Percent cell count reference ranges are not reported, since discordance with absolute values may lead to misinterpretation of CBC data. Current Interpretive Data was last revised on 2017. Imm gran pct 0.0 % [facility] Comment: Interpretive Data Percent cell count reference ranges are not reported, since discordance with absolute values may lead to misinterpretation of CBC data. Current Interpretive Data was last revised on 2017. Lymphocyte pct 38.5 % [facility] Comment: Interpretive Data Percent cell count reference ranges are not reported, since discordance with absolute values may lead to misinterpretation of CBC data. Current Interpretive Data was last revised on 2017. Monocyte pct 11.3 % [facility] Comment: Interpretive Data Percent cell count reference ranges are not reported, since discordance with absolute values may lead to misinterpretation of CBC data. Current Interpretive Data was last revised on 2017. Eosinophil pct 3.8 % [facility] Comment: Interpretive Data Percent cell count reference ranges are not reported, since discordance with absolute values may lead to misinterpretation of CBC data. Current Interpretive Data was last revised on 2017. Basophil pct 0.6 % [facility] Comment: Interpretive Data Percent cell count reference ranges are not reported, since discordance with absolute values may lead to misinterpretation of CBC data. Current Interpretive Data was last revised on 2017. Blood 03/25/2025 4:44 PM CDT 03/25/2025 5:20 PM CDT us Odalys Stiles MD LAB BLOOD ORDERABLES Final Res ult [facility] Department [place] [address] * Thyroid Function [place] (03/25/2025 4:44 PM CDT) TSH 1.97 0.30 - 4.20 mcIUnit/mL Blood 03/25/2025 4:44 PM CDT 03/25/2025 5:20 PM CDT Odalys Stiles MD LAB BLOOD ORDERABLES Final Res ult [facility] Department [place] [address] * (ABNORMAL) CBC with auto differential (03/25/2025 4:44 PM CDT) [facility] WBC 4.68 3.80 - 9.90 K/cumm Hgb 13.3 13.0 - 17.5 g/dL [facility] Hct 40.0 38.9 - 50.3 % [facility] Plt 207 150 - 400 K/cumm [facility] MPV 8.8(L) 9.1 - 12.3 fL [facility] RBC 4.16(L) 4.30 - 5.80 M/cumm [facility] MCV 96.2 81.3 - 96.4 fL [facility] MCH 32.0 27.1 - 33.3 pg [facility] MCHC 33.3 32.3 - 35.7 g/dL [facility] RDW CV 13.4 11.1 - 14.9 % [facility] RDW SD 47.7 35.7 - 48.1 fL [facility] NRBC abs 0.00 0.00 - 0.01 K/cumm [facility] Blood 03/25/2025 4:44 PM CDT 03/25/2025 5:20 PM CDT Odalys Stiles MD LAB BLOOD ORDERABLES Final Res ult [facility] Department [place] [address] * (ABNORMAL) Comprehensive metabolic panel (03/25/2025 4:44 PM CDT) [facility] Sodium 132(L) 135 - 145 mmol/L Potassium, pl 4.8 3.3 - 4.9 mmol/L [facility] Chloride 93(L) 97 - 110 mmol/L [facility] CO2 31 22 - 32 mmol/L [facility] Anion gap 8 2 - 15 mmol/L [facility] BUN 11 6 - 25 mg/dL [facility] Creatinine 0.84 0.80 - 1.30 mg/dL [facility] Glucose 100 70 - 199 mg/dL [facility] Comment: Interpretive Data Fasting glucose >/= 126 [...] Current interpretive data was last revised 2022. Calcium 10.1 8.5 - 10.3 mg/dL [facility] Bilirubin, total 1.0 0.1 - 1.2 mg/dL [facility] Protein, pl 7.9 6.5 - 8.5 g/dL [facility] Albumin 4.3 3.5 - 5.0 g/dL [facility] Alk phos 84 40 - 130 Units/L [facility] ALT 13 7 - 55 Units/L [facility] AST 16 10 - 50 Units/L [facility] Blood 03/25/2025 4:44 PM CDT 03/25/2025 5:20 PM CDT us Odalys Stiles MD LAB BLOOD ORDERABLES Final Res ult [facility] [place] [address] * ECG 12 lead (03/25/2025 3:59 PM CDT) Ventricular Rate EKG/Min 88 BPM [facility] QRS-Interval (MSEC) 84 ms [facility] QT-Interval (MSEC) 360 ms [facility] QTc 435 ms [facility] R [place] -4 degrees [facility] T [place] 41 degrees [facility] Diagnosis Atrial fibrillation Abnormal ECG No previous ECGs available Confirmed by ENRIQUE LOZANO M.D ([id number]) on 03/26/2025 9:32:43 AM [facility] 03/25/2025 3:59 PM CDT 03/26/2025 9:32 AM CDT us Deanna Mathews ROLL PANNER ECG ORDERABLES Final R esult [facility] [place] from Last 3 Months Additional Health Concerns Infection Onset Date Last Indicated Gallito auris, Exposure Comment:Exposed in [facility] [place] [address]698 on 04/10. First swab 04/11, 2nd swab 04/17 04/11 swab negative 04/1704/11/2025 04/11/2025 Insurance MEDICARE MEDICARE MD COMMUNITY CARE MEDICARE MD COMM[facility]ITY CARE Advance Directives For more information, please contact: [phone] Documents on File Type Date Recorded Patient Co Founder And Director Expl anation ADVANCE DIRECTIVE 04/05/2025 6:03 AM Power of Manager Travel-Medical * Full Code (Latest Code Status on File) Date Activated Date Inactivated Comments 04/05/2025 6:31 PM 04/12/2025 5:27 PM Care Teams Telephone Services Sales Representative Relationship Specialty Start Date End Date Mauricio De La Rosa MD [address] [place] [address] PCP - General Internal Medicine 11/14/20 Geraldine Martin LCSW Cafe Server 03/04/25 Yelena Lacy, RN Nurse Navigator 03/05/25 Shlomo Villalba MD [address] [facility] [address] [place] [address] Medical Oncologist/Physical Integration Practitioner Medical Oncology 05/15/25 Kenneth Curran MD [address] [place] [address] Radiation Oncologist Radiation Oncology 05/15/25 Odalys Stiles MD [address] [facility], [address] [place] [address] Surgeon Otolaryngology 05/15/25 Austin Apple MD [facility] [address] [place] [address] Consulting Physician Neurosurgery 05/30/25
--- OUTSIDE RECORDS SUMMARY | 2025-06-24 22:49 | XMS_ITS | Encounter Summary ---
Author Organization [facility] Healthcare Address [address] [place] [address] Care Team Providers Care Inside Upholsterer Name Role Phone Mauricio De La Rosa MD Primary Care Provider [phone] Geraldine MartinW Unavailable Unavaila Yelena Tovar RN Unavailable Unav ailable OpShlomo jay MD Unavailable [phone] Kenneth Curran MD Unavailable [phone] Odalys Stiles MD Unavailable [phone] Austin Apple MD Unavailable [phone] Encounter Details Date Type Department Care Team (Latest Contact Info) Description 04/25/2025 Telephone Otolaryngology Robbie Olivera MD [address] [id number] Social History Tobacco Use Types Packs/Day Years Used Date Smoking Tobacco: Former Cigarettes 0.1 35 1 968 - 2003 Passive Smoke Exposure: Past Smokeless Tobacco: Never [facility] Utilities Answer Date Recorded In the past 12 months has [employer] electric, gas, oil, or water company threatened [...] often do you attend chur ch or quaker services? 1 to 4 times per year 03/05/2025 Active Member of Clubs or Organizations Not on f ile 03/05/2025 How often do you attend meet ings of the clubs or organizations you belong to? Never 03/05/2025 Are you , , di vorced, , never , or living with a partner? 03/05/2025 AUDIT-C Answer Date Recorded Q1: How often do you have a drink containing alc ohol? 2-3 times a week 04/05/2025 Q2: How many drinks containi ng alcohol do you have on a typical day when you are drinking? 1 or 2 04/05/2025 Q3: How often do you have si x or more drinks on one occasion? Never 04/05/2025 Overall Financial Resource Strain (CARDIA) Answe r [...] any time in the past 12 m [facility], were you homeless or living in a longterm (including now)? No 03/05/2025 Personal Safety Answer Date Recorded Have you [...] on file documented as of this encounter Miscellaneous Notes * Telephone Encounter - Robbie Olivera MD - 04/25/2025 9:30 PM CDT Drain not holding suction No dehiscence One drain left in place in the leg Drain put out 35 mls in past 24 hours documented in this encounter Plan of Treatment Not on file documented as of this encounter Visit Diagnoses Not on filedocumented in this encounter Additional Health Concerns Infection Onset Date Last Indicated Resolved Time Lynsey auris, Exposure Comment:Exposed in [facility] room [address]78 on 04/10. First swab 04/11, 2nd swab 04/17 04/11 swab negative 04/1704/11/2025 04/11/2025 documented as of this encounter Care Teams Inside Upholsterer Relationship Specialty Start Date End Date Mauricio De La Rosa MD [address] [place] [address] PCP - General Internal Medicine 11/14/20 Geraldine Martin LCSW Patient Scheduling Coordinator 03/04/25 Yleena Lacy, ERAN Nurse Navigator 03/05/25 Shlomo Villalba MD [address] [facility] [address] [place] [address] Medical Oncologist/Copyright Expert Medical Oncology 05/15/25 Kenneth Curran MD [address] [place] [address] Radiation Oncologist Radiation Oncology 05/15/25 Odalys Stiles MD [address] [facility], [address] [place] [address] Surgeon Otolaryngology 05/15/25 Austin Apple MD [address] [place] [address] Consulting Physician Neurosurgery 05/30/25 documented as of this encounter
[2025-06-24 22:56] VITALS: BP 163/102; PULSE 95; RESP 15; O2SAT 97
== END 2025-06-24 22:58 | disposition home or self-care (01) ==
PROVIDERS: Emergency Provider Student in an Organized Health Care Education/Training Program
DX: R60.0 Localized edema (principal); C76.0 Malignant neoplasm of head, face and neck; I48.91 Unspecified atrial fibrillation; E03.9 Hypothyroidism, unspecified; I10 Essential (primary) hypertension
CPT/HCPCS: 99281

== ENCOUNTER 2025-07-12 20:10 | Emergency (ER) | payer MEDICARE, OTHER, SELFPAY ==
[2025-07-12] VITALS (19 sets, daily range): BP systolic 103–134; BP diastolic 67–97; PULSE 133–189; RESP 18–25; TEMP 37.7–37.8; O2SAT 67–84
--- NOTE | ~2025-07-12 | XR_ITS ---
XR chest 1V portable 07/12/2025 20:35 Indication: Dyspnea Procedure: AP portable chest Comparison: 11/14/2020 Findings: Cardiomegaly with mild interstitial edema. No pleural effusion or pneumothorax. No acute osseous abnormality. Impression: 1: Cardiomegaly with mild interstitial edema. Reviewed, dictated and finalized at location O. ENGINE LATHE SET UP OPERATOR Impression: 1: Cardiomegaly with mild interstitial edema.
--- NOTE | ~2025-07-12 | CT_ITS ---
CT HEAD NON-CONTRAST Clinical History: AMS Comparison: None Technique: Unenhanced axial images skull base to vertex Coronal, sagittal reformats CT images acquired with automatic exposure control for dose reduction DLP: 681 mGy-cm Findings: Left frontal lobe encephalomalacia. Sulci, ventricles: Unremarkable. No intracerebral hemorrhage. No evidence acute territorial infarct. No mass effect, midline shift. Left frontal craniectomy, overlying postoperative changes and soft tissue. Visualized paranasal sinuses: Diffuse disease left side. Mastoid air cells: Clear. IMPRESSION: 1. No acute intracranial findings. Reviewed, dictated and finalized at location R. ANICAL STRIPER
--- NOTE | ~2025-07-12 | CT_ITS ---
EXAMINATION: CTA chest abdomen pelvis DATE: 07/12/2025 22:00 INDICATION: Sepsis. TECHNIQUE: Computed tomographic angiography (CTA) of the chest, abdomen, and pelvis was performed with 100 mL Omnipaque-350 intravenous contrast. Automated exposure control and iterative reconstruction technique were employed. The dose- length product was 1770.32 mGy-cm. Maximum intensity projection 3D- reconstructions of the aorta and other arteries were constructed by the technologist on a separate workstation. COMPARISON: None. FINDINGS: CHEST CTA: The lungs demonstrate mild dependent atelectasis. There is smooth septal thickening bilaterally, consistent with mild pulmonary edema. There are small pleural effusions. There is right atrial and right ventricular enlargement of the heart. No pericardial effusion. The central pulmonary arteries are enlarged, consistent with pulmonary arterial hypertension. There is no pulmonary embolus, but sensitivity is moderately decreased by motion artifact. Aortic atherosclerosis is noted. There is mild thoracic spondylosis. ABDOMEN AND PELVIS CTA: There is an 8 mm hyperdense mass in right hepatic lobe. The gallbladder, spleen, pancreas, adrenal glands, and left kidney are normal. There is a 5 mm cyst in right kidney. There is a Song catheter in expected position. The prostate is moderately enlarged. There are bilateral inguinal hernias containing fat. There are no dilated loops of bowel. The appendix is not visualized. There is no significant stenosis of celiac axis, superior mesenteric artery, or right renal artery. There is moderate stenosis of left renal artery. There is no significant stenosis of inferior mesenteric artery. There are no pathologically enlarged lymph nodes. There is no ascites. There is moderate lumbar spondylosis. IMPRESSION: 1. Mild pulmonary edema. 2. Small pleural effusions. 3. No pulmonary embolus. Sensitivity is moderately decreased by motion artifact. 4. Aortic atherosclerosis. No aneurysm or dissection. 5. Moderate stenosis of left renal artery. 6. 8 mm hyperdense mass in the liver, most likely a hemangioma or focal nodular hyperplasia. 7. Bilateral inguinal hernias containing fat. Reviewed, dictated and finalized at location E. CEMENTER IMPRESSION: 1. Mild pulmonary edema. 2. Small pleural effusions. 3. No pulmonary embolus. Sensitivity is moderately decreased by motion artifact . 4. Aortic atherosclerosis. No aneurysm or dissection. 5. Moderate stenosis of left renal artery. 6. 8 mm hyperdense mass in the liver, most likely a hemangioma or focal nodular hyperplasia. 7. Bilateral inguinal hernias containing fat.
--- NOTE | ~2025-07-12 | XR_ITS ---
Examination: XR chest port-a-cath/central Clinical History: RIJ central line placement Comparison: None Technique: Portable AP Findings: Right neck central line with catheter tip upper SVC. Mild cardiomegaly. No pneumothorax. Mildly increased interstitial markings. No acute bony abnormality. IMPRESSION: 1. No pneumothorax after central line placement. 2. Mild interstitial pulmonary edema. Reviewed, dictated and finalized at location R. OL COMMANDER
--- NOTE | 2025-07-12 20:20 | ECG_ITS ---
Test Date: 2025-07-12 20:12:15 Measurements Intervals [place] Rate: 196 P: 0 OK: 0 QRS: -12 QRSD: 84 T: 113 QT: 218 QTc: 394 Interpretive Statements ATRIAL FIBRILLATION WITH RAPID VENTRICULAR RESPONSE POSSIBLE RIGHT VENTRICULAR CONDUCTION DELAY [RSR (QR) IN V1/V2] NONSPECIFIC ST & T-WAVE ABNORMALITY ABNORMAL ECG No previous ECG available for comparison Electronically Signed On 07-13-2025 08:30:25 IMMIGRATION PATROL INSPECTOR by Jesus Triana M.D.
--- NOTE | 2025-07-12 20:21 | PC.NURSE ---
Pt's sister placed in family room for Dr Garcia to speak with.
[2025-07-12] MEDS: METOPROLOL TARTRATE INJ 5 MG/5 ML VIAL IV PUSH (20:22)
[2025-07-12] MEDS: METOPROLOL TARTRATE INJ 5 MG/5 ML VIAL (20:30)
[2025-07-12 20:42] LABS: Alveolar/Arterial O2 Gradient 167.5 mmHg; Fractional Inspired Oxygen 44 %; HCO3 ABG 23.3 mEq/l (22.0-26.0); Oxygen Content ABG 15.1 %vol (16.0-22.0); Oxygen Saturation ABG 98.4 % (95.0-100.0); PCO2 ABG 31.2 mmHg (35.0-45.0); PO2 ABG 110.7 mmHg (80.0-100.0); PO2 FiO2 Ratio Arterial Blood 2.52 %
[2025-07-12 20:43] LABS: Liters per Minute 6.0 LPM; Modified Allen's Test Pass; Site Drawn RIGHT RADIAL
[2025-07-12] MEDS: LACTATED RINGERS 1,000 ML 999 ML IV CONT (20:46)
--- NOTE | 2025-07-12 20:46 | PCRCNOTE ---
ABG delayed due to X-RAY.
[2025-07-12 20:49] LABS: Hematocrit 32.7 % (42.0-52.0); Hemoglobin 10.1 g/dL (14.0-18.0); Immature Granulocyte Percent A 3.6 % (0-0.5); Immature Platelet Fraction Pct 7.7 % (0.9-11.2); Lymphocytes Absolute Auto 0.41 K/mm3 (0.9-3.2); Mean Corpuscular HGB Conc 30.9 g/dl (32-36); Mean Corpuscular Hemoglobin 26.6 pg (26-34); Mean Corpuscular Volume 86.3 fl (80-100); Nucleated Red Blood Cells Absolute Auto 0.000 K/mm3 (0.0-0.012); Nucleated Red Blood Cells Perc 0.0 % (0.0-0.2); Platelet Count Result 56 k/mm3 (150-375); Red Blood Count 3.79 M/mm3 (4.6-6.20); White Blood Count 3.4 K/mm3 (4.5-10.0)
[2025-07-12 20:59] LABS: INR 1.7; Prothrombin Time 19.7 Seconds (11.1-14.7)
[2025-07-12 21:00] LABS: Partial Thromboplastin Time 36.0 Seconds (22.3-36.8)
[2025-07-12] MEDS: CEFEPIME 2 GM in SODIUM CHLORIDE 0.9% IV 50 ML 100 ML IVPB (21:05)
[2025-07-12 21:06] LABS: Alanine Aminotransferase 36 U/L (6-50); Albumin Level 3.0 g/dL (3.5-5.1); Alkaline Phosphatase 80 U/L (38-126); Anion Gap 9 mmol/L (4-12); Aspartate Amino Transferase 60 U/L (17-59); Bilirubin,Total 3.8 mg/dL (0.2-1.3); Blood Urea Nitrogen 42 mg/dL (9-20); Calcium 8.0 mg/dL (8.4-10.2); Carbon Dioxide 25 mmol/L (22-30); Chloride 98 mmol/L (98-107); Creatine Kinase 690 U/L (55-170); Estimated Glomerular Filt Rate 48; Glucose 95 mg/dL (65-110); Lipase 15 U/L (23-300); Magnesium 1.8 mg/dL (1.6-2.3); Potassium 3.5 mmol/L (3.4-5.0); Sodium 132 mmol/L (137-145); Total Protein 6.1 g/dL (6.3-8.2)
[2025-07-12 21:07] LABS: Ovalocytes 1+; Schistocytes None Seen
[2025-07-12 21:22] LABS: NT Pro B Type Natriuretic Pept > 30000 pg/mL (19.9-100); Troponin I 3.370 ng/mL (0.000-0.034)
[2025-07-12 21:25] LABS: Influenza A QL RT-PCR Negative (Negative); Influenza B QL RT-PCR Negative (Negative); RSV RNA, RT-PCR Negative (Negative); SARS-CoV-2 RNA PCR Negative (Negative)
[2025-07-12 21:26] LABS: Add Urine Microscopic? YES; Appearance Urine Cloudy (Clear); Glucose Urine UA Negative (Negative); Leukocyte Esterase Ur Trace LEU/UL (Negative); Nitrate Urine Negative (Negative); Specific Grav Ur 1.015 (1.001-1.035)
[2025-07-12 21:32] LABS: Thyroid Stimulating Hormone Reflex 1.770 uIU/mL (0.465-4.68)
--- NOTE | 2025-07-12 22:16 | ED.GENADULT ---
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 he is currently undergoing chemotherapy and radiation due to the partial resection. He is altered and confused and cannot provide me any information other than his name. His sister is at bedside and says that she speaks with him every day. She he did not go to his chemo radiation because he did not feel well. She was then unable to get a hold of him and a wellness check was performed found him laying flaccid bed in his own waist. He was then brought to the hospital for further evaluation. When EMS arrived he was found to be tachycardic in the 180s to 200s. He received 6 mg 12mg of adenosine without improvement. Paramedics believe underlying rhythm was atrial fibrillation. Related Data Home Medications ?Medication ?Instructions ?Recorded ?Confirmed ?Last Taken ?Type cyanocobalamin (vitamin B-12) 1,000 mcg PO DAILY 11/14/20 03/25/21 11/13/20 History 1,000 mcg tablet folic acid 800 mcg tablet 0.8 mg PO DAILY 11/14/20 03/25/21 11/13/20 History levothyroxine 150 mcg tablet 150 mcg PO DAILY 11/14/20 03/25/21 11/13/20 History (Synthroid) simvastatin 40 mg tablet 40 mg PO DAILY 11/14/20 03/25/21 11/13/20 History cholecalciferol (vitamin D3) 100 100 mcg PO DAILY 01/01/21 03/25/21 Unknown History mcg (4,000 unit) capsule (Vitamin D3) metoprolol tartrate 25 mg tablet 150 mg PO Q12HR 01/01/21 03/25/21 03/25/21 History 0530 Allergies Allergy/AdvReac Type Severity Reaction Status Date / Time No Known Allergies Allergy Verified 06/24/25 21:01 [facility] Past Medical History Medical History (Updated 07/13/25 @ 00:43 by Gianni Garcia MD) Mitral valve regurgitation mod to severe BMI 36.0-36.9,adult Colon cancer screening Afib Gastric ulcer NSAID long-term use Acute blood loss anemia TBI (traumatic brain injury) Residual left-sided weakness. GI bleeding Hypothyroid Hypertension Surgical History Surgical History History of tonsillectomy and adenoidectomy H/O colonoscopy with polypectomy History of appendectomy Family History Family History Father Heart disease Mother Diabetes mellitus Social History Social History Social History: The patient lives home alone. He is and has no children. He desires to have his sister is a durable power commonwealth attorney. He lives approximately 6 miles from her house. 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 the patient desires to be a full code. Years smoked: 30 Tobacco type: cigarettes Smoking end date: 11/08/02 Alcohol intake: current Drinks per week: 10 Alcohol use details: BEER Substance use: never Living arrangements: alone Gender identity (if verbalized by the patient): Male Sexual Orientation (if Verbalized by the Patient): Straight or Heterosexual Spiritual care concerns: No Exam Narrative: APPEARANCE: Toxic appearing, hard of hearing, arousable to voice Head: left orbit is surgically closed, right eye is injected, lips are chapped with dry blood around the mouth. NOSE: Atraumatic NECK: Trachea midline RESPIRATORY: tachypneic, bilateral rales CARDIOVASCULAR: severely tachycardic, edema of both legs ABDOMINAL: distended, nontender MUSCULOSKELETAl: No obvious deformities NEURO: Alert. Moving 4/4 extremities SKIN:: skin breakdown over the legs PSYCHIATRIC: somnolent Course Vital Signs Vital signs: Vital Signs Pulse Rate 187 H 07/12/25 20:10 Respiratory Rate 22 H 07/12/25 20:10 Blood Pressure 134/97 H 07/12/25 20:10 Temperature 100.1 F H 07/12/25 23:16 Pulse Rate 135 H 07/12/25 23:43 Respiratory Rate 19 07/12/25 23:16 Blood Pressure 116/96 H 07/12/25 23:16 Pulse Oximetry 67 L 07/12/25 23:16 Oxygen Delivery BiPAP 07/12/25 22:25 Procedures Central Line Placement Right IJ: Central Line Date: 07/13/25 Discussed w/ the patient/family/POA,the placement of a central venous catheter, including its clinical necessity/indication & associated potential risks, benifits and alternatives.: Yes The patient/family/POA understand(s) and acknowledge(s) the need to proceed with central venous catheter insertion as an important element of the patient's clinical management.: Yes Performed Emergently - Given emergent patient condition, temporal constraints may have precluded informed consent.: Yes Time Out Performed: Yes Patient Placed on Monitor/Pulse Ox: Yes Max. Sterile Barrier Technique: Caps, large sterile sheet and hand hygiene Central Line Prep: sterile drapes applied Technique: sterile prep/drape Local Anesthetic: lidocaine 1% Amount of anesthesia used (mL): 5 Ultrasound Used for Placement: Yes Central Line Lumen Inserted: triple Post Procedure: sutured in place, good blood return, all ports aspirated, flushed, capped and sterile dressing applied Post Procedure X-Ray: tip of catheter in good position and no pneumothorax seen Patient Tolerated Procedure: well Complications: none Medical Decision Making MDM Narrative Medical decision making narrative: -Course: 80-year-old male presenting for altered mental status. patient is toxic appearing on arrival. Sister is at bedside and he is DNR DNI but medications okay. She would like us to do everything outside of intubation or CPR. On arrival he is tachycardic in the 180-200s. Blood pressure 130/80. Mucous membranes are dry and lips are chapped, however he does have diffuse edema.. Atrial fibrillation felt to be secondary to sepsis vs dehydration vs fluid overload. Patient given metoprolol x3 with minimal effect. He was then started on amiodarone. patient given 1 L of LR. Patient started on cefepime and vanco while waiting to complete his workup. Sepsis workup was obtained as well as a CTA chest abdomen pelvis. On re-evaluation the patient's respiratory status is worsening and his oxygen requirements are increasing. Attempted emergency cardioversion due to pulmonary edema and was unsuccessful at 200, 300 and 300 with AP position on the pads. Patient placed on BiPAP. Point of care ultrasound showed a plethoric IVC and a hyperdynamic heart. Patient given 40 mg Lasix. Central line placed in the right IJ. CTA Chest abdomen pelvis did not show a main pulmonary artery embolism however it was nondiagnostic due to motion artifact and sub-optimal contract bolus. Patient has trace pleural effusions and pulmonary edema. Laboratory studies showed a white count of 3.4. Lactic is 4.9. Troponin is 3.37 and BNP is greater than 30,000. urine with 11-20 white blood cells and 4+ bacteria. Viral swabs negative. Patient was accepted by Dr. Greene - [facility] ICU. -DDX includes but is not limited to: Sepsis dehydration pneumonia PE bacteremia, UTI, diarrheal illness Vital Signs Vital Signs: Vital Signs Pulse Rate 187 H 07/12/25 20:10 Respiratory Rate 22 H 07/12/25 20:10 Blood Pressure 134/97 H 07/12/25 20:10 Temperature 100.1 F H 07/12/25 23:16 Pulse Rate 135 H 07/12/25 23:43 Respiratory Rate 19 07/12/25 23:16 Blood Pressure 116/96 H 07/12/25 23:16 Pulse Oximetry 67 L 07/12/25 23:16 Oxygen Delivery BiPAP 07/12/25 22:25 Lab Data 07/12/25 20:39 07/12/25 20:39 Labs: Lab Results 07/12/25 07/12/25 07/12/25 Range/Units 20:39 20:39 22:03 WBC 3.4 L (4.5-10.0) K/mm3 RBC 3.79 L (4.6-6.20) M/mm3 Hgb 10.1 L (14.0-18.0) g/dL Hct 32.7 L (42.0-52.0) % MCV 86.3 (80-100) fl MCH 26.6 (26-34) pg MCHC 30.9 L (32-36) g/dl RDW 20.6 H (11.5-14.5) % Plt Count 56 L D (150-375) k/mm3 MPV Not Reportable Immature Gran % (Auto) 3.6 H (0-0.5) % Neut % (Auto) 78.2 H (45.5-73.1) % Lymph % (Auto) 12.2 L (18.3-44.2) % [place] % (Auto) 5.1 (2.6-8.5) % Eos % (Auto) 0.0 (0-4.4) % Baso % (Auto) 0.9 (0.2-1.2) % Lymph # (Auto) 0.41 L (0.9-3.2) K/mm3 [place] # (Auto) 0.2 (0.1-0.6) K/mm3 Eos # (Auto) 0.0 (0-0.3) K/mm3 Baso # (Auto) 0.0 (0.0-0.1) K/mm3 Abs Immat Gran (auto) 0.12 H (0.00-0.031) K/mm3 Absolute Neuts (auto) 2.6 (1.3-6.7) K/mm3 Absolute Nucleated RBC 0.000 (0.0-0.012) K/mm3 Band Neutrophils % Not Reportable Nucleated RBC % 0.0 (0.0-0.2) % Platelet Estimate Decreased (Adequate) Large Platelets Present % Immature Plt Fraction 7.7 (0.9-11.2) % Ovalocytes 1+ Schistocytes None seen PT 19.7 H (11.1-14.7) Seconds INR 1.7 APTT 36.0 (22.3-36.8) Seconds Sodium 132 L (137-145) mmol/L Potassium 3.5 (3.4-5.0) mmol/L Chloride 98 (98-107) mmol/L Carbon Dioxide 25 (22-30) mmol/L Anion Gap 9 (4-12) mmol/L BUN 42 H D (9-20) mg/dL Creatinine 1.43 H (0.7-1.3) mg/dL Estim Creat Clear Calc Not Reportable Estimated GFR 48 L (59 - ) Glucose 95 (65-110) mg/dL Lactic Acid 4.9 H* (0.7-2.0) mmol/L Calcium 8.0 L (8.4-10.2) mg/dL Phosphorus 2.6 (2.5-4.5) mg/dL Magnesium 1.8 (1.6-2.3) mg/dL Total Bilirubin 3.8 H (0.2-1.3) mg/dL AST 60 H (17-59) U/L ALT 36 (6-50) U/L Alkaline Phosphatase 80 (38-126) U/L Total Creatine Kinase 690 H (55-170) U/L Troponin I 3.370 H* Pending (0.000-0.034) ng/mL NT-Pro-B Natriuret Pep > 07633 H (19.9-100) pg/mL Total Protein 6.1 L (6.3-8.2) g/dL Albumin 3.0 L (3.5-5.1) g/dL Lipase 15 L (23-300) U/L TSH (Reflex) 1.770 (0.465-4.68) uIU/mL Urine Color Dark yellow (Yellow) Urine Appearance Cloudy H (Clear) Urine pH 6.5 (5.0-9.0) Ur Specific [place] 1.015 (1.001-1.035) Urine Protein 2+ H (Negative) mg/dL Urine Glucose (UA) Negative (Negative) mg/dL Urine Ketones Negative (Negative) mg/dL Ur Blood (Man) 3+ H (Negative) Urine Nitrate Negative (Negative) Urine Bilirubin Negative (Negative) Urine Urobilinogen 1.0 (<2.0) mg/dL Leukocyte Esterase Rfl Trace H (Negative) NIGEL/UL Urine RBC 21-50 H (0-2) /hpf Urine WBC 11-20 H (0-3) /hpf Ur Squamous Epith Cells Occasional (Few) /hpf Urine Bacteria 4+ H /hpf Urine Casts 3-5 Nasal MRSA (PCR) Not detected (NOT DETECTE) Influenza A (RT-PCR) Negative (Negative) Influenza B (RT-PCR) Negative (Negative) RSV (RT-PCR) Negative (Negative) SARS-CoV-2 RNA (RT-PCR) Negative (Negative) 07/13/25 Range/Units 00:19 WBC (4.5-10.0) K/mm3 RBC (4.6-6.20) M/mm3 Hgb (14.0-18.0) g/dL Hct (42.0-52.0) % MCV (80-100) fl MCH (26-34) pg MCHC (32-36) g/dl RDW (11.5-14.5) % Plt Count (150-375) k/mm3 MPV Immature Gran % (Auto) (0-0.5) % Neut % (Auto) (45.5-73.1) % Lymph % (Auto) (18.3-44.2) % [place] % (Auto) (2.6-8.5) % Eos % (Auto) (0-4.4) % Baso % (Auto) (0.2-1.2) % Lymph # (Auto) (0.9-3.2) K/mm3 [place] # (Auto) (0.1-0.6) K/mm3 Eos # (Auto) (0-0.3) K/mm3 Baso # (Auto) (0.0-0.1) K/mm3 Abs Immat Gran (auto) (0.00-0.031) K/mm3 Absolute Neuts (auto) (1.3-6.7) K/mm3 Absolute Nucleated RBC (0.0-0.012) K/mm3 Band Neutrophils % Nucleated RBC % (0.0-0.2) % Platelet Estimate (Adequate) Large Platelets % Immature Plt Fraction (0.9-11.2) % Ovalocytes Schistocytes PT (11.1-14.7) Seconds INR APTT (22.3-36.8) Seconds Sodium (137-145) mmol/L Potassium (3.4-5.0) mmol/L Chloride (98-107) mmol/L Carbon Dioxide (22-30) mmol/L Anion Gap (4-12) mmol/L BUN (9-20) mg/dL Creatinine (0.7-1.3) mg/dL Estim Creat Clear Calc Estimated GFR (59 - ) Glucose (65-110) mg/dL Lactic Acid 2.8 H (0.7-2.0) mmol/L Calcium (8.4-10.2) mg/dL Phosphorus (2.5-4.5) mg/dL Magnesium (1.6-2.3) mg/dL Total Bilirubin (0.2-1.3) mg/dL AST (17-59) U/L ALT (6-50) U/L Alkaline Phosphatase (38-126) U/L Total Creatine Kinase (55-170) U/L Troponin I (0.000-0.034) ng/mL NT-Pro-B Natriuret Pep (19.9-100) pg/mL Total Protein (6.3-8.2) g/dL Albumin (3.5-5.1) g/dL Lipase (23-300) U/L TSH (Reflex) (0.465-4.68) uIU/mL Urine Color (Yellow) Urine Appearance (Clear) Urine pH (5.0-9.0) Ur Specific [place] (1.001-1.035) Urine Protein (Negative) mg/dL Urine Glucose (UA) (Negative) mg/dL Urine Ketones (Negative) mg/dL Ur Blood (Man) (Negative) Urine Nitrate (Negative) Urine Bilirubin (Negative) Urine Urobilinogen (<2.0) mg/dL Leukocyte Esterase Rfl (Negative) NIGEL/UL Urine RBC (0-2) /hpf Urine WBC (0-3) /hpf Ur Squamous Epith Cells (Few) /hpf Urine Bacteria /hpf Urine Casts Nasal MRSA (PCR) (NOT DETECTE) Influenza A (RT-PCR) (Negative) Influenza B (RT-PCR) (Negative) RSV (RT-PCR) (Negative) SARS-CoV-2 RNA (RT-PCR) (Negative) ABG Data ABG results: 07/12/25 20:33 Puncture Site Right radial ABG pH 7.491 H ABG pCO2 31.2 L ABG pO2 110.7 H ABG PO2/FiO2 Ratio 2.52 ABG HCO3 23.3 ABG O2 Saturation 98.4 ABG O2 Content 15.1 L ABG Base Excess 0.5 A-a Gradient 167.5 Oxyhemoglobin 97.5 Total Hemoglobin 10.9 L O2 Delivery Device Nasal cannula O2 Liters/Min 6.0 FiO2 44 Critical Care Time Critical Care Time Critical Care Time: Yes Total Critical Care Time: 60 Discharge Plan Discharge Clinical Impression: Atrial fibrillation, Sepsis, Cancer Patient Disposition: Acute Care Hospital Condition: Stable Patient Language: Belarusian Prescriptions: No Action metoprolol tartrate 25 mg tablet 150 mg PO Q12HR Vitamin D3 100 mcg (4,000 unit) capsule 100 mcg PO DAILY pantoprazole [Protonix] 40 mg tablet,delayed release (DR/EC) 40 mg PO BID Qty: 60 5RF cyanocobalamin (vitamin B-12) 1,000 mcg Tablet 1,000 mcg PO DAILY simvastatin 40 mg Tablet 40 mg PO DAILY levothyroxine [Synthroid] 150 mcg Tablet 150 mcg PO DAILY folic acid 800 mcg Tablet 0.8 mg PO DAILY Follow-up/Referrals: [facility] [Primary Care Provider, Medical]
[2025-07-12] MEDS: FUROSEMIDE INJ 40 MG/4 ML VIAL IV PUSH (22:23)
[2025-07-12] MEDS: VANCOMYCIN 1,750 MG/NS 500 ML 1,750 MG/500 ML BAG 250 MG IVPB (22:24)
--- NOTE | 2025-07-12 22:26 | PC.NURSE ---
Cardioversion with Dr Garcia at bedside, RNs Evelyn and Aliza. 200j 2209-HR 179, 300j, 2210-HR 168, 2212, 360j HR 157
--- NOTE | 2025-07-12 22:41 | PC.NURSE ---
2030-patient given pericare prior to catheter insertion, some bleeding around meatus noted. Patient was incont of stool and urine at home. Skin break down noted to buttocks 2100 Face/R eye cleaned of crustiness- redness with blood ooze in corner, lips mouth and tongue coated with old blood-lips started rebleeding with attempts to clean. Patient ready for family visit but sister had to run to patient home-she and her just drove up from [employer] today 2200 Family at bedside-patient speaking/interacting with sister.
--- NOTE | 2025-07-12 22:51 | PC.NURSE ---
Patient has multiple areas all over body with sores-toes and right lower leg have wet wound areas. Arms showing signs of bruising and old scratches and wounds. Patient has sores also noted on face and neck. Patient is receiving Radiation treatments to left eye (removed) area
--- NOTE | 2025-07-12 22:56 | PC.NURSE ---
Dr Garcia at bedside to prep patient for central line to right IJ-procedure explained to patient he replied with ok
--- NOTE | 2025-07-12 23:34 | PC.NURSE ---
Report to Seema BARILLAS-introduced to patient and fmily
[2025-07-13 00:08] LABS: MRSA (PCR) NOT DETECTED (NOT DETECTE)
[2025-07-13 00:41] VITALS: PULSE 145; RESP 22; O2SAT 91
[2025-07-13 01:20] LABS: Troponin I 3.830 ng/mL (0.000-0.034)
[2025-07-13 01:37] VITALS: PULSE 149; RESP 19
[2025-07-13 02:00] VITALS: BP 97/75; PULSE 139; RESP 22; O2SAT 95
[2025-07-13 03:51] VITALS: PULSE 139
--- NOTE | 2025-07-13 03:51 | PC.NURSE ---
Adis started new amiodarone bag.
[2025-07-13 03:52] VITALS: BP 97/75; PULSE 139; RESP 22; TEMP 37.8; O2SAT 95
--- NOTE | 2025-07-13 04:43 | PC.NURSE ---
Watch left in ED tx room when transferred. Sister called by Yue who states that she will come to get it. Placed in bag in safe at nursing station.
--- NOTE | 2025-07-14 19:14 | PC.NURSE ---
Critical results of blood cultures from Spec [id number] and [id number] received from lab personnel for Cj Galaviz. Pt was transferred to [facility] 07/13/25 am. Call to ICU rn perioperative Gabby. Results faxed to [phone].
== END 2025-07-13 03:57 | disposition short-term general hospital (02) ==
PROVIDERS: Emergency Provider Emergency Medicine
DX: A41.9 Sepsis, unspecified organism (principal); I48.91 Unspecified atrial fibrillation; C44.329 Squamous cell carcinoma of skin of other parts of face; I34.0 Nonrheumatic mitral (valve) insufficiency; E03.9 Hypothyroidism, unspecified; I10 Essential (primary) hypertension; S06.9XAS Unspecified intracranial injury with loss of consciousness status unknown, sequela; G81.94 Hemiplegia, unspecified affecting left nondominant side; Z66 Do not resuscitate; Z86.0100 Personal history of colon polyps, unspecified; Z79.899 Other long term (current) drug therapy; Z79.60 Long term (current) use of unspecified immunomodulators and immunosuppressants; R94.31 Abnormal electrocardiogram [ECG] [EKG]; X58.XXXS Exposure to other specified factors, sequela
CPT/HCPCS: 36415; 36556; 36600; 51702; 70450; 71045; 71275; 74174; 80053; 81001; 82550; 82805; 83605; 83690; 83735; 83880; 84100; 84443; 84484; 85018; 85025; 85055; 85610; 85730; 87040; 87086; 87147; 87186; 87637; 87641; 93005; 94002; 96365; 96366; 96367; 96368; 96375; 99291; C1751; J0283; J0616; J0692; J1938; J3373; J7120; Q9967